=== PATIENT | female | born 1990 | race Caucasian/White ===

== ENCOUNTER 2023-05-22 11:48 | Outpatient (OUT) | payer MEDICAID, SELFPAY ==
[2023-05-22 12:17] LABS: Basophils Percent Auto 0.5 % (0.2-2.0); Eosinophils Absolute Auto 0.1 10^3/uL (0.0-0.7); Eosinophils Percent Auto 1.8 % (0.9-7.0); Hematocrit 39.6 % (36.0-48.0); Hemoglobin 13.6 g/dL (12.0-16.0); Immature Granulocytes Abs Auto 0.03 10^3/uL (0.00-0.03); Immature Granulocytes Pct Auto 0.4 % (0.0-0.5); Lymphocytes Absolute Auto 1.8 10^3/uL (1.2-3.8); Lymphocytes Percent Auto 23.4 % (20.5-60.0); Mean Corpuscular HGB Conc 34.3 g/dL (29.9-35.2); Mean Corpuscular Hemoglobin 27.8 pg (26.7-34.0); Mean Corpuscular Volume 80.8 fL (81.0-99.0); Mean Platelet Volume 10.7 fL (9.5-13.5); Monocytes Absolute Auto 0.5 10^3/uL (0.3-0.8); Neutrophils Absolute Auto 5.1 10^3/uL (1.4-6.5); Neutrophils Percent Auto 66.9 % (43.0-75.0); Platelet Count 301 10^3/uL (150-450); Red Cell Distribution Width 12.1 % (11.0-15.0); White Blood Count 7.6 10^3/uL (4.0-11.0)
[2023-05-22 12:28] LABS: Estimated Average Glucose 111 mg/dL; Glycohemoglobin A1C 5.5 % (4.5-6.2)
[2023-05-22 12:49] LABS: Alanine Aminotransferase 32 U/L (14-59); Albumin Globulin Ratio 1.2; Albumin Level 4.3 g/dL (3.4-5.0); Alkaline Phosphatase 75 U/L (46-116); Anion Gap 10.5; Aspartate Amino Transferase 18 U/L (15-37); BUN Creatinine Ratio 22.7; Bilirubin Total 0.4 mg/dL (0.2-1.0); Calcium 8.9 mg/dL (8.5-10.1); Carbon Dioxide 26.3 mmol/L (21.0-32.0); Chloride 100 mmol/L (98-107); Chol HDL Ratio 4.2; Cholesterol 168 mg/dL (<=200); Estimated GFR (African America >60 (>=60); Estimated GFR (Non-African Ame >60 (>=60); Free T3 2.65 pg/mL (2.18-3.98); Globulin 3.7 g/dL; Glucose 99 mg/dL (74-106); HDL Cholesterol 40 mg/dL (40-60); Potassium 3.8 mmol/L (3.5-5.1); Sodium 133 mmol/L (136-145); Triglycerides 150 mg/dL (<=150)
[2023-05-23 11:09] LABS: Insulin 26.4 uIU/mL (2.6-24.9)
== END 2023-05-22 11:49 | disposition home or self-care (01) ==
LOC: LAB 11:53
PROVIDERS: PCP Family Medicine; Visit Provider Family Medicine
DX: Z00.00 Encounter for general adult medical examination without abnormal findings (principal)
CPT/HCPCS: 36415; 80053; 80061; 83036; 83525; 83540; 84436; 84443; 84481; 85025

== ENCOUNTER 2023-08-16 16:34 | Outpatient (OUT) | payer OTHER, SELFPAY ==
[2023-08-16 17:13] LABS: INR 1.05; Partial Thromboplastin Time 29.7 sec (22.3-36.2); Prothrombin Time 11.1 sec (9.0-11.6)
[2023-08-16 17:41] LABS: Alanine Aminotransferase 17 U/L (14-59); Albumin Globulin Ratio 1.2; Albumin Level 4.3 g/dL (3.4-5.0); Alkaline Phosphatase 79 U/L (46-116); Anion Gap 12.4; Aspartate Amino Transferase 17 U/L (15-37); BUN Creatinine Ratio 29.9; Bilirubin Total 0.3 mg/dL (0.2-1.0); Calcium 8.6 mg/dL (8.5-10.1); Carbon Dioxide 25.5 mmol/L (21.0-32.0); Chloride 104 mmol/L (98-107); Estimated GFR (African America >60 (>=60); Estimated GFR (Non-African Ame >60 (>=60); Globulin 3.5 g/dL; Glucose 100 mg/dL (74-106); Potassium 3.9 mmol/L (3.5-5.1); Sodium 138 mmol/L (136-145); Total Protein 7.8 g/dL (6.4-8.2)
== END 2023-08-16 16:35 | disposition home or self-care (01) ==
PROVIDERS: PCP Family Medicine; Visit Provider Family Medicine
DX: R31.9 Hematuria, unspecified (principal)
CPT/HCPCS: 36415; 80053; 85610; 85730

== ENCOUNTER 2023-08-16 16:49 | Emergency (ER) | payer OTHER, SELFPAY ==
[2023-08-16 16:55] VITALS: BP 127/105; PULSE 98; RESP 18; TEMP 36.6; O2SAT 98; BMI 33.6
--- NOTE | 2023-08-16 16:58 | XR_ITS ---
The [address] [address] Patient Name: MEREDITH CHAHAL MRN: [id number] date: 1990 Sex: F Assigned Patient Location: ER Current Patient Location: ER Accession/Order Number: [id number] Exam Date: 08/16/2023 17:12 Report Date: 08/16/2023 18:02 At the request of: SHEREEN WRIGHT Procedure: XR foot LT min 3V EXAM: XR foot LT min 3V HISTORY: left foot pain COMPARISON: None. TECHNIQUE: 3 views of the left foot FINDINGS: There is no acute fracture or dislocation. There is mild soft tissue swelling of the dorsal foot. FINDINGS: No acute fracture. Electronically authenticated by: JASON LAZARO Date: 08/16/2023 18:02
--- NOTE | 2023-08-16 17:03 | ED.LOWEXI1 ---
Documented by User: SIL Ding 08/16/23 17:49 HPI - Extremity Injury (Lower) General Chief Complaint: Extremity Injury, Lower Stated Complaint: Lower Extremity Injury Time Seen by Provider: 08/16/23 16:52 Source: patient Mode of arrival: walk-in Limitations: no limitations History of Present Illness HPI Narrative: patient is a 33-year-old female presents to the emergency department for an injury to the left foot that occurred at home approximately one hour ago. She states her daughter's laptop fell and hit her on the dorsum of the left foot. She reports pain over the left 4th toe radiating into the midfoot. She is able to ambulate. No medications taken prior to arrival. She is not concerned for . She had no other associated injuries. Related Data Allergies Allergy/AdvReac Type Severity Reaction Status Date / Time Sulfa (Sulfonamide Allergy Unknown Verified 08/16/23 16:55 Antibiotics) Review of Systems ROS Constitutional Denies: fever or chills Ears, nose, mouth, and throat Denies: neck pain Respiratory Denies: shortness of breath Musculoskeletal Reports: extremity pain and joint pain; Denies: back pain or neck pain Integumentary/Breast Denies: rash Neurological Denies: headache Hematologic/Lymphatic Denies: easy bruising Exam Narrative Exam Narrative: Gen.: Awake, alert, in no distress Head: Normocephalic, atraumatic ENT: Moist mucous membranes Respiratory: No respiratory distress Extremities: Moves extremities equally, normal flexion and extension of the toes of the left foot, mild tenderness and swelling noted over the left 4th metatarsal. No abrasions or ecchymosis noted. 2+ left DP pulse. Psych: Normal mood and affect Neuro: No focal neuro deficit Skin: Warm, dry, intact Constitutional Vital Signs, click to edit/add: Last Vital Signs Temp 97.8 F 08/16/23 16:55 Pulse 98 H 08/16/23 16:55 Resp 18 08/16/23 16:55 BP 127/105 H 08/16/23 16:55 Pulse Ox 98 08/16/23 16:55 O2 Del Method Room Air 08/16/23 16:55 Course Vital Signs Vital signs: Vital Signs Temperature 97.8 F 08/16/23 16:55 Pulse Rate 98 H 08/16/23 16:55 Respiratory Rate 18 08/16/23 16:55 Blood Pressure 127/105 H 08/16/23 16:55 Pulse Oximetry 98 08/16/23 16:55 Oxygen Delivery Method Room Air 08/16/23 16:55 Temperature 97.8 F 08/16/23 16:55 Pulse Rate 98 H 08/16/23 16:55 Respiratory Rate 18 08/16/23 16:55 Blood Pressure 127/105 H 08/16/23 16:55 Pulse Oximetry 98 08/16/23 16:55 Oxygen Delivery Method Room Air 08/16/23 16:55 MDM - Extremity Injury (Lower) MDM Narrative Medical decision making narrative: x-rays of the left foot with no evidence of fracture, dislocation or soft tissue abnormality. Patient declined pain medication in the emergency department. patient declined Rafael wrap or a postop shoe. She is discharged home to rest, ice, elevate. Follow-up with PCP and return to the Emergency Room if symptoms change or worsen. Medical Records Attestation: I reviewed the patient's medical records. Imaging Data x-ray foot: Attestation: I personally reviewed and interpreted this imaging study as follows: My impression: three-view left foot: No fracture, dislocation, soft tissue abnormality. Imaging reviewed by attending physician Discharge Plan Discharge Chief Complaint: Extremity Injury, Lower Clinical Impression: Contusion of left foot Patient Disposition: Home, Self-Care Time of Disposition Decision: 17:49 Condition: Good Instructions: Foot Contusion (ED) Stand Alone Forms: Portal Instructions Referrals: Jean Claude Joshi MD [Primary Care Provider] - 1 week Discharge Date/Time: 08/16/23 17:54 Documented by User: Ross Matthew MD 08/16/23 18:55 HPI - Extremity Injury (Lower) General Chief Complaint: Extremity Injury, Lower Stated Complaint: Lower Extremity Injury Time Seen by Provider: 08/16/23 16:52 Related Data Allergies Allergy/AdvReac Type Severity Reaction Status Date / Time Sulfa (Sulfonamide Allergy Unknown Verified 08/16/23 16:55 Antibiotics) Exam Constitutional Vital Signs, click to edit/add: Last Vital Signs Temp 97.8 F 08/16/23 16:55 Pulse 98 H 08/16/23 16:55 Resp 18 08/16/23 16:55 BP 127/105 H 08/16/23 16:55 Pulse Ox 98 08/16/23 16:55 O2 Del Method Room Air 08/16/23 16:55 Course Vital Signs Vital signs: Vital Signs Temperature 97.8 F 08/16/23 16:55 Pulse Rate 98 H 08/16/23 16:55 Respiratory Rate 18 08/16/23 16:55 Blood Pressure 127/105 H 08/16/23 16:55 Pulse Oximetry 98 08/16/23 16:55 Oxygen Delivery Method Room Air 08/16/23 16:55 Temperature 97.8 F 08/16/23 16:55 Pulse Rate 98 H 08/16/23 16:55 Respiratory Rate 18 08/16/23 16:55 Blood Pressure 127/105 H 08/16/23 16:55 Pulse Oximetry 98 08/16/23 16:55 Oxygen Delivery Method Room Air 08/16/23 16:55 MDM - Extremity Injury (Lower) MDM Narrative Medical decision making narrative: x-rays of the left foot with no evidence of fracture, dislocation or soft tissue abnormality. Patient declined pain medication in the emergency department. patient declined Rafael wrap or a postop shoe. She is discharged home to rest, ice, elevate. Follow-up with PCP and return to the Emergency Room if symptoms change or worsen. I, Dr Matthew, have reviewed the above progress note and course of action in the ER; agree with the above. I have personally seen and evaluated this patient, gone over history and physical, and discussed disposition and treatment plan with the patient. It was recommended and patient refused Rafael wrap and postop shoe,Patient stated she was just here to rule out a fracture, she will use ice over the weekend. 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 Discharge Plan Discharge Chief Complaint: Extremity Injury, Lower Clinical Impression: Contusion of left foot Patient Disposition: Home, Self-Care Time of Disposition Decision: 17:49 Condition: Good Instructions: Foot Contusion (ED) Stand Alone Forms: Portal Instructions Referrals: Jean Claude Joshi MD [Primary Care Provider] - 1 week Discharge Date/Time: 08/16/23 17:54
== END 2023-08-16 17:54 | disposition home or self-care (01) ==
PROVIDERS: Emergency Provider Emergency Medicine; PCP Family Medicine
DX: S90.32XA Contusion of left foot, initial encounter (principal); W20.8XXA Other cause of strike by thrown, projected or falling object, initial encounter; R31.9 Hematuria, unspecified
CPT/HCPCS: 36415; 73630; 80053; 85610; 85730; 99283

== ENCOUNTER 2023-08-22 08:06 | Outpatient (OUT) | payer OTHER, SELFPAY ==
--- NOTE | 2023-08-22 08:09 | US_ITS ---
The [address] [address] Patient Name: MEREDITH CHAHAL MRN: [id number] date: 1990 Sex: F Assigned Patient Location: US Current Patient Location: US Accession/Order Number: [id number] Exam Date: 08/22/2023 08:10 Report Date: 08/22/2023 09:31 At the request of: INDERJIT LIEBERMAN Procedure: US renal BI US renal BI, 08/22/2023 8:10 AM EDT INDICATION: Hematuria R31.9 COMPARISON: There is no appropriate prior study for comparison. FINDINGS: The kidneys measure 12.7 x 4.6 x 4.6 cm on the right and 12.4 x 4.6 x 4.6 cm on the left side. Possible right extrarenal pelvis. No hydronephrosis is noted. Normal vascularity of kidneys. The visualized portion of the urinary bladder is unremarkable. The urinary bladder wall measures 2.9 mm. Nonspecific ureteral jet is noted. The post void residual measures 15.7 mL. US/US renal BI IMPRESSION: No suspicious lesion or nephrolithiasis is noted. A CTU may be helpful for further evaluation. Electronically authenticated by: JOHN PEÑALOZA Date: 08/22/2023 09:31
== END 2023-08-22 08:07 | disposition home or self-care (01) ==
LOC: US 08:06
PROVIDERS: PCP Family Medicine; Visit Provider Family Medicine
DX: R31.9 Hematuria, unspecified (principal)
CPT/HCPCS: 76775

== ENCOUNTER 2024-06-09 12:37 | Outpatient (OUT) | payer BC, OTHER, SELFPAY ==
--- OUTSIDE RECORDS SUMMARY | 2024-06-09 12:44 | XMS_ITS | CCD ---
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 Name Role Phone DR INDERJIT JOSHI Primary Care Unavailable ADI, DR JANSEN Admitting Unavailable ADI, DR JANSEN Attending Unavailable ADI, DR JANSEN Consulting Unavailable ADI, DR JANSEN Admitting Unavailable ADI, DR JANSEN Attending Unavailable ADI, DR JANSEN Consulting Unavailable ADI, DR JANSEN Primary Care Unavailable Sammy Mike Unavailable NONE, XXXX Primary Care Physician Unavailab Inderjit Teixeira Primary Care Physician GISELA PORTER Attending Unavailable GISELA PORTER Attending Unavailable JODIE TSAI Attending Unavailable Inderjit Joshi Primary Care Unavailable Sammy Mike Attending Unavailable Sammy Mike Admitting Unavailable Sammy Mike Admitting Unavailable Inderjit Joshi Primary Care Unavailable Sammy Mike Attending Unavailable Elissa Mejia. Admitting Unavailable Elissa Mejia. Attending Unavailable Elissa Mejia. Referring Unavailable Christine Yo Admitting Unavailable Christine Yo Attending Unavailable Christine Yo Admitting Unavailable Christine Yo Attending Unavailable Nicholas Thurston Attending Unavailable Star LEONARDO Attending Unavailable Elissa Mejia. Attending Unavailable Allergies Allergy Classification Reported Allergen(s) Allergy Type Date of Onset Reaction(s) Facility (3 sources) Substance with sulfonamide structure and antibacterial mechanism of action (substance) Drug allergy Unknown [facility] Other (6 sources) Sulfonamides (Antibiotic); Translations: [sulfa drugs] Drug allergy Unknown by patient [facility] (1 source) Sulfonamides (Antibiotic) Drug allergy (disorder) [address] [place] [address] Repository Medications Current Medications Medication Drug Class(es) Dates Sig (Normalized) Sig (Original) benzoyl peroxide 100 mg/ml medicated liquid soap (5 sources) Start: 12-04-2023 Benzoyl Peroxide Active 1 APPLIC TOPICAL Daily December 04, 2023 1:00am Benzoyl Peroxide Wash 10 % External for 30 Days PRN Active cephalexin 500 mg oral capsule (1 source) Cephalosporin Antibacterial Start: 08-18-2023 End: 08-25-2023 take 1 capsule by mouth every twelve hours cephalexin 500 mg Cap 500 mg = 1 cap(s), Oral, q12hr, X 7 day(s), # 14 cap(s), Refills(s) 0 Start Date: 08/18/23 Stop Date: 08/25/23 Status: Ordered clindamycin 0.01 mg/mg topical gel (5 sources) Lincosamide Antibacterial Start: 12-04-2023 Clindamycin Phosphate Active 1 APPLIC TOPICAL Twice daily December 04, 2023 1:00am Clindamycin Phos phate 1 % apply A SMALL AMOUNT topically to affected area twice a day External for 30 Days PRN Active estrogens, conjugated (skilled nursing) 0.625 mg/ml vaginal cream (1 source) Estrogen Start: 04-13-2024 Premarin Vaginal 0.625 mg/g cream with applicator See Instructions, 30 gm, Refill(s) 1, Apply pea sized amount to urethra/vagina 3x a week at night x 1 month, then 2x a week for maintainence, [employer] #14, 154, cm, 04/13/24 9:25:00 EDT, Height/Length Dosing, 76, kg, 04/13/24 9:25:00 EDT, Weight Dosing Start Date: 04/13/24 Status: Ordered ibuprofen 600 mg oral tablet (2 sources) Nonsteroidal Anti-inflammatory Drug Start: 07-10-2017 take 600 mg by mouth every six hours Ibuprofen Active 600 MG PO Q6H July 10, 2017 12:00am Magnesium (3 sources) Magnesium 235mg two capsules qd Active magnesium oxide 400 mg oral tablet (2 sources) Start: 12-04-2023 take 400 mg by mouth once daily Magnesium Oxide Active 400 MG PO Daily December 04, 2023 1:00am Multivitamin preparation (5 sources) Start: 12-04-2023 take 1 tablet by mouth once daily Multivitamin Active 1 TAB PO Daily December 04, 2023 1:00am Start: 12-04-2023 take 1 tablet by jose th once daily Multivitamin Active 1 TAB PO Daily December 04, 2023 12:00am Multivitamin Act chyna Semaglutide (Weight Loss) (2 sources) Start: 01-15-2024 Semaglutide (W eight Loss) (Wegovy) 1 mg/0.5 mL pen injector Active 1 MG SUBCUT every week 2 January 15, 2024 4:09pm Start: 01-15-2024 End: 01-15-2024 Semaglutide (Weight Loss) (W egovy) 1 mg/0.5 mL pen injector Discontinued 1 MG SUBCUT every week January 15, 2024 12:00am January 15, 2024 4:10pm Semaglutide Base (1 source) Start: 01-15-2024 inject 1 mL by subcutaneous injection every week Semaglutide Base Active 0.33 ML SUBCUT every week 1.32 January 15, 2024 12:00am [facility] Pre-filled Syringes using Semaglutide Base. Dispense 1.32 mL = (Four 0.33 mL pre-filled syringes) Semaglutide Sodium 0.3 mg/ 0.25 mL 0.25 mL (3 sources) Start: 07-11-2023 Semaglutide So dium 0.3 mg/ 0.25 mL 0.25 mL 0.25 mL Injection Once for 7 days Jun, Active Semaglutide Sodi um 0.3 mg/ 0.25 mL 0.25 mL 0.25 mL Injection Once for 7 days Active sulfacetamide sodium 100 mg/ml topical lotion (5 sources) Sulfonamide Antibacterial Start: 12-04-2023 Sulfacetamide Sodium (Acne) Active 1 APPLIC TOPICAL Twice daily December 04, 2023 1:00am Sulfacetamide So dium (Acne) 10 % External for 30 Days PRN Active 24 hr tolterodine tartrate 2 mg extended release oral capsule (2 sources) Cholinergic Muscarinic Antagonist Start: 12-05-2023 Tolterodine Active M G PO December 05, 2023 1:00am Completed/Discontinued Medications Medication Drug Class(es) Dates Sig (Normalized) Sig (Original) 0.25 mg, 0.5 mg dose 1.5 ml semaglutide 1.34 mg/ml pen injector (4 sources) Start: 12-05-2023 End: 01-15-2024 inject 2.3 mg by subcutaneous injection every week Semaglutide Discontinued 2.3 MG SUBCUT every week December 05, 2023 10:18am January 15, 2024 4:08pm [facility] [employer] Start: 12-04-2023 End: 12-05-2023 inject 0.25 mg by subcutaneous injection every week Semaglutide Discontinued 0.25 MG SUBCUT every week December 04, 2023 1:00am December 05, 2023 10:19am for 4 weeks spironolactone 25 mg oral tablet (5 sources) Aldosterone Antagonist Start: 12-04-2023 End: 12-05-2023 take 1 tablet by mouth once daily Spironolactone (Aldactone) 25 mg tablet Discontinued 25 MG PO Daily December 04, 2023 1:00am December 05, 2023 10:19am Aldactone 25 MG 1 tablet Orally PRN Active TB Test (3 sources) Start: 02-18-2014 TB Test February 0.1 mL Problems Problem Classification Problem Date Documented Date Episodic/Chronic Acute bronchitis (4 sources) Acute bronchitis, unspecified; Translations: [ACUTE BRONCHITIS UNSPECIFIED] Onset: 10-03-2022 Episodic Administrative/social admission (14 sources) Dietary counseling and surveillance; Translations: [Other specified counseling] Onset: 08-29-2023 Episodic Diabetes mellitus without complication (7 sources) Other abnormal glucose; Translations: [Prediabetes] Onset: 12-05-2023 Episodic Disorders of lipid metabolism (7 sources) Dyslipidemia; Translations: [Hyperlipidemia, unspecified] Chronic Genitourinary symptoms and ill-defined conditions (4 sources) Stress incontinence (female) (male); Translations: [Female stress incontinence] Onset: 03-27-2024 Chronic Genitourinary symptoms and ill-defined conditions (5 sources) Unspecified symptoms and signs involving the genitourinary system; Translations: [Blood in urine] Onset: 08-18-2023 Episodic Other diseases of bladder and urethra (4 sources) Urethral intrinsic sphincter deficiency; Translations: [Intrinsic sphincter deficiency (ISD)] Onset: 03-27-2024 Episodic Other endocrine disorders (3 sources) Hyperinsulinism; Translations: [Other hypoglycemia] Chronic Other endocrine disorders (2 sources) Other hypoglycemia Chronic Other nutritional; endocrine; and metabolic disorders (3 sources) Obesity; Translations: [Obesity, unspecified] Chronic Other nutritional; endocrine; and metabolic disorders (5 sources) Obesity, unspecified; Translations: [Obesity, unspecified] Onset: 12-05-2023 Chronic Other nutritional; endocrine; and metabolic disorders (4 sources) Obese class I; Translations: [Obesity, unspecified] 12-04-2023 Chronic Other and delivery including normal (2 sources) Vaginal delivery; Translations: [Encounter for full-term uncomplicated delivery] 07-09-2017 Episodic Other skin disorders (2 sources) Cystic acne; Translations: [Acne vulgaris] 12-04-2023 Episodic Unclassified (1 source) CONTACT W/AND (SUSP) EXPOS COVID-19; Translations: [CONTACT W/AND (SUSP) EXPOS COVID-19] Onset: 10-06-2022 Results Test Name Value Interpretation Reference Range Facility Coding Summary.on 04-14-2024 Coding Summary. [id number]+PG hlYWQ+WN3YTODpZ52anA EvjQ6dH8BQQQaQEhgqNK LFWYiSPzHocdJkFS6kmJ NjZXJu IC8+SR4rKUIaIrmypZNw i8I8xRT0F41afc9kHUrs gVY6UMAnMoOmhzbxe5pk vYy1USjtJsttSmJh MMWnyT32PXO9cY77Hl04 kADesUZav1czyLn3LhXr MVRyNUF8cKtbAXxtb8Qu TGVwJ01rlURgl5I1 IGNvbGxhcHNlOyBlbXB0 tY0oZIasmcmqi3mkgrvw Bpd3bg07yYBhy1R4hWT3 Y0MeltD8ZPBdlTAr RqkgeJHHrL8wfcfoi4wq yhsjRoWzSAYyJQa8XGs7 FOZovMzpCzXxGS98MKS3 DYGszeOmU6YrDPTb iTzjSvY1h4N9Yr9BO7WV XisyQ8XPGGOCCJiubDH+ IS67wd81Z3IoThdzYrf5 TGXaDSP0hWY8bX8x VQXbXCpdk5K1vWF8X1Mp pcYjqp0dv7ctNSEeXVrv E26joVGqu1L5NGTadIS8 HIStsCszQlMzcX19 Oyc+UBDhjHmlv8RiBeuz g6zfq6nbeEk9LstgHJEt tkZmrDsoHIK9n5NdEi9i TBAprEB0gRO3wQ6l PxIsQdR3HRpsL117CoPb rWGwZpbdH65yN4BglJH+ UVUoKuo2ASTxiLfrNO4z R7FqDTGrxreyuFIe kQsmQD6rEVLkvaziPSQe iP7wNZAnM7f9GlGlLfK8 UHrrN0CoGBBqachcNg56 cB1rCoWgTdJ2TYok K6PhdgF5ZXCfxBJuOTzh UDK6C12lj2L8AYUqBCJk EOK4cAU9aA6aeDxambsv bGVmdDsgdmVydGlj EZqoDFifW588VEUvkVzl PkNvZGluZyBEYXRlOiAg MDYvMjUvMjAyNDwvdGQ+ AAKbOZV5vMneYTEo mETbREdiWz6ccYciaKgr VY4nXJXfwlenSHAnjK7k WCTryCEzjSalGG1lEOTk myfkk681OiWcXAY2 NAEhiNHyR3YueV9hWxEd YRIxHJPaF3OrlPAdRKjd M496DCwlAiG6VWVltmMr V7MhAXXhsTgiJlP3 s2U6At5Kg7YqtqjmI7Nh nWWmPoEgQolqPXe7T1He PjwvdHI+UX16KJGxWI03 CCl7TTK9iEtoDCmu XCEgD9DnsO3rJiWyDWFc ZGRkOyc+PHRhYmxlIHdp ZHRoPScxMDAlJyBzdHls LZ6kUh6cQHIeDODn nSxywKBtHyVzd8ovDVHy OIehYL3yzPohH8EjkIU2 GVUwq3k4Fy33W09eT7Ab dXA+UDChkEL1iHM9 zD1eNnPjFmT3TJctT147 BzWokZGtMvbqy3jka0lm wOx0HnU2UAGwjsHzmUcp JTF4i0PvXy76E21c IHdpZHRoPSIxNSUiIHZh kQjuky4rkM0vLn2+PGNv pIB0rVK8xG1pWnZbQsM3 RYbfL961FxAhwEUa Rgbff1hke3hnsLq5JeGh FFBuwpOluXhjXIF5s3Ll Zj87G2PrbRudl4UsUpz1 yh92kNAex8J4qLZ1 W9ToESLxyktbzERxoSwb KL4rXCCdqxrwJDTykZ0a QEJyI1s0PnVkDzX8UKjo O5GissJ5RIQcdUVs PUTdmFDPsB6cjxnbv2dh kvbtFoQnIUKfOIu4JTz3 HFAmbDrbBqPtWDA3XzQ2 MTC8mYSpeV9qpBau vsleiW4xWpx+ZAC5vZXd xVHKTD2cTfbloMU+PHRk SFI2uLiiMGwwLUPxdR8g FAUiV1g2QvQgWjM1 VYjxB5TwdnO0TSEnfIQw OFDfkNCIgO0ywyxgh4hs vwqzKjHsGGBcGJs0KRf5 LWFsaWduOiBsZWZ0 IsM3EQZ8xKQnqP0opVol asvloH3bRrh+QmlydGgg YPB4OLx6B7CrGzv4ZTEm pJqtUM1qdAHrLAjv Uu4pbBgfbStdQR4sEMCr rykix697QdCxd7xcBPHo qRGyNWxiNST1J99wo7G0 CLPhEXItIGE8lOD3 jP8dqGaadngsoPTxzRgn ysVniPdaWOhiZIsiU297 VMXrkWvaWuIvSEs0Q7Zj Kvf3VRRfzEkqBN4q mRCvMCyrXh0kyYkqaTsj AU6wHRKqqetrs379PwRm s8tsGFNtoUGqZWifKBE2 O68jk4J5SKGzYXKg FIB2wEI4bI2nnGypqkpo bGVmdDsgdmVydGljYWwt KEdbA153ZRXrtQjmYpMg nHo8J0GmAlm2ZFMv oEhcWV0rrWJeECegUw7c kExllAkxHU6hEFNvktwv h277DzAkh1szTLGhsNOq IBurCEB5D49ji1J6 AJWuWPWnANW8uWX4oN7e bGlnbjogbGVmdDsgdmVy pEedLOozXAtdB154JNAq cDsnPlBhdGllbnQg BLuaRCh2Y6OsXapswAX+ EE37WNGnTH07wTKhkMRg j7onlMo0SjGgAQBnRXE2 pGszXLpjl9DgZNRp B36qqBFud1L1SDNlkTpr rYKvDaYcwYO2nE1vLRab pwsaq5nhwkqbSszlu8wj la00hA88W43wUVfv ZHRoPSIzMCUiIHZhbGln nt9ckY5pXw4+PGNvbCB3 lZS0dC5jBOOhPxJ2FSvd I858MaLocGPgQvbm g3tey1ljjUu8YkF3WFQr lyTbpSeaEHD6t0KsKq03 O13yYLumIKVbUWAuDHZl JDXoiYridr6wwE7f Ii8+SPLggCH0qYH4fI4p ZjVeDzV5OWayU596AqNq lEZqGhhjZ60aT5RzuGF+ FJRiKjc0RBQrtNrf RJ3ccTZyCNzgNa6hLVX5 UgUrIwIwGEfrF9BfAQRr obbhbhkgzDV1DZFgMNMb eA81Hi0djLiyISEb iBBHrL0kzqefl4nyysnf BhLhXPFxKGb5RZs2MQHd zLnrSdFeBKY3XuE3WRG0 eHJgtK3kcTpdbmkp eA1nW5OdYXMcpzlbOu69 xP9tBtRfHfV2VRrvHmx+ X7RPQ0uYXONISETXNfVU QTwvdGQ+PHRkIHN0 lRosGPhaWCMxiQ7qIYRe R7s2RnAsEkA6HYrmS1Rh VZYnoikaEd66tL6bVeEh FxW0QZeuV6DjklG0 VRItkVLyCVapPUQ7Q60g m2A3UJLmQYUqLGB0eGX0 kO4elMyspjookFEzlEnl dmVydGljYWwtYWxp H643FLOykSxuOfU8SlAj OtM5RRt1G4EeBye7DTVh pKegHY8caYUcTHnkTo8v dUwogTryEB6fAYHa imvvPEFdnS0zDESkkSNe uCfbPS7yFZTbvjnaz365 PwRjOOW2ORMneOZtQ4Aq tM2mQlJaNDSkMMWv W4AypAKqSSzzK940FOmn PlK7CRZnwnZeM8ZhMVTv fBykOrW2r1G0Mi0zKRWE ZWFyczwvdGQ+PHRk RZQ7qGveVPxoSCBznW9q VSXxZ0r7AqKjJhI2BKoo E0AzKGAdhjihFa62eX7i UpTpItV0BVloS2Hb ryN8LPEufGAwXXnjJVG1 U62ld3O4GEEwAGMrLNX5 oJA2fI2hcUspyawvrEWc dDsgdmVydGljYWwt XKfsG871YLXztKudEnYw bWFsZTwvdGQ+PHRkIHN0 dKiaQYlgLTRwkL4yHYUy B8v5ByRvNzD7UBoi N2YgCRSuvjcaKo83nS9q UhZfNdY1ETreV9YywgA4 OQUseHKoARnrXCM7J21u x2Z2BLWgNAVuPQV7 fQS5mM0yaJsquwihqRQt dDsgdmVydGljYWwtYWxp L211CREsiAylYg57bINl xJuooqX9D1ZfGhib dHI+PF95XOUvOA74zIGv pLPtm7qccHo0KvVrNTDl UGZ5mGnmDPcgb3HeJIEj J34lnLRcb4X4HZXt tOhmmGWdQnJdeLN9eP5q RAxhwjgdb4nobvpeCagg x6wais75xJ88N20sTKdf ZHRoPSIzMCUiIHZh zLbxyn2nrS9eGf5+PGNv eVQ9zCD4qW8vEnUjTaV5 JUzzL887KlChaMToNyan c0uow0mzdRd2TdCg VXWeebOxoHhfVCC7l0Su Xw47E53iRJvgWYMtIDXb LLQzYAOogCdkuy5yjL6s Ii8+XM8ja0pjqu88 hD09qYB+MPAzHIC2tBsh MYuzVXFckW5vVLrtFlK0 AGAvGgKtgR28iOWnDVgb Ue0gfXeeuZruUF6e YRMxqregm854AjFwo1zy JVMmkWFfEOfwEDN8Q71d k2T4EZMfGNPxTNO9rOP4 wD2vsZgnsppaaTHb dDsgdmVydGljYWwtYWxp G272WYOcjPlgFuUzgIMi S4ftfbTZZX5eCnhweXZ+ CDZbLMF7wKcfOPdw JBZacC3lHZJiL8a1TzZj GsX6WYmnD9ExayB8JIMc tQBrMTShrSXSlV6ztxrn s5lawcvcSaReUSJt IEf6HIj9HTKfmKbtFmCh YGD6KxE1LDP0vGVruP9x jYrsbxhaiS7kQii+RklO OjwvdGQ+PHRkIHN0 yDhxWVyxNFApzD8tLJGi T3j3VePgTrT0EBrzC3Gx joD6EQQrjPDaMEOdpAJW xG8migeon9kkjggf NrHoUUFoYDq9QGd9MAPe jVcbDsLkJDI1BjN9RHI6 lGIibU5deQswktmegM8n Oyc+TVJOOjwvdGQ+ DGUsBPL4hEvhALdiGDJy xR5jIQGaY0c1JqQxTjW6 HSprR3IfexQ4ISCsdHXa CSVdmTAGmS0fkbgk c0bzjpvlJoXkJGJwFMo6 KMz7WCVekVzsZiIwEUX0 SkM8YKA4kCMocT6wnXpb zztghG1yPrg+UGF5 LBN7EQ19KI23J5JjBmhk dGFibGU+PHRhYmxlIHdp ZHRoPScxMDAlJyBzdHls KW3eSy8jPJIfGLMz bGxhcHNlOiBjb (more content not included)... [facility] Consent for Procedure/Surger yon 04-13-2024 Consent for Procedure/Surgery [id number]#[id number] Normal [facility] Consent for Treatmenton 03-22 Consent for Treatment [id number] #1.00TIFF Normal [facility] Inpatient Patient Summaryon 04-13-2024 Inpatient Patient Summary [address] [address] Clinical Summary Person Information Name: MEREDITH CHAHAL Age: 33 Years : 1990 Sex: Female PCP: Inderjit Joshi MD Marital Status: Race: White Ethnicity: Non- or Language: Tuvaluan Visit Id: Visit Reason: GROSS HEMATURIA Speciality: Acuity: Enc Type: Outpatient Med Service: Surgery Arrival: 04/13/2024 08:42:19 Discharge: Dispo Type: Address: [address] [place] [address] [address] [id number] Provider Notes: Diagnosis: Gross hematuria; Intrinsic sphincter deficiency (ISD); Stress incontinence, female Problems Active Intrinsic sphincter deficiency (ISD) Stress incontinence, female Gross hematuria Smoking Status: Functional Status: Sensory Deficits: History of Falls: Mobility Assistance Prior to Admission: ADLs: Current Level of Assistance for Self-Care/Mobility: Cognitive Status: Allergies sulfa drugs (Unknown by patient) Laboratory or Other Results This Visit (last charted value for your 04/13/2024 visit) No Laboratory or Other Results This Visit Measurements: Height: 154 cm Weight: 76 kg Blood Pressure: Not Valued / Not Valued BMI: 32.05 kg/m2 Procedures No Procedures Documented Immunizations No Immunizations Documented This Visit Final Med List: conjugated estrogens topical (Premarin Vaginal 0.625 mg/g cream with applicator) Apply pea sized amount to urethra/vagina 3x a week at night, then 2x a week for maintainence. Refills: 1. Care Team Members: Attending Physician: Elissa Mejia MD Consulting Physician: Referring Physician: Elissa Mejia MD Follow up: With: Address: When: Elissa Mejia Comments: Office to schedule [employer] Patient Education Information: EU - Cystoscopy Discharge Instructions (CUSTOM) [facility] IntraOperative Documentson 0 04-13-2024 IntraOperative Documents [id number] 4#1.00TIFF [facility] Main OR Intraoperative Recor don 04-13-2024 Main OR Intraoperative Record IntraOp Document Type FTURO Summary Primary Physician: Elissa Mejia MD Finalized Date/Time: 04/13/24 09:54:15 Pt. Name: MEREDITH CHAHAL/Sex: 1990 Female Med Rec #: [id number] Physician: Elissa Mejia MD Financial #: [id number] Pt. Type: O Room/Bed: / Admit/Disch: 04/13/24 08:42:19 - Institution: Case Times FTURO Entry 1 Patient Times In Room 04/13/24 09:41:00 Out Room 04/13/24 09:54:00 Procedure Times Start 04/13/24 09:43:00 Stop 04/13/24 09:49:00 Anesthesia Times Last Modified By: Liliana Monsivais 04/13/24 09:54:03 Case Attendance FTURO Entry 1 Entry 2 Entry 3 Case Attendee Roberto JOSHI, Liliana Boss COUNSELING AIDEDior Role Performed Surgeon - Primary Breakdown Person - Primary Scrub - Primary Time In 04/13/24 09:41:00 04/13/24 09:41:00 04/13/24 09:41:00 Time Out 04/13/24 09:54:00 04/13/24 09:54:00 04/13/24 09:54:00 Procedure CYSTOSCOPY LOCAL(.) CYSTOSCOPY LOCAL(.) CYSTOSCOPY LOCAL(.) Comments Last Modified By: Liliana Monsivais Kelsie E Burgderfer, Kelsie E 04/13/24 09:54:04 04/13/24 09:54:04 04/13/24 09:54:04 Surgical Procedures FTURO Entry 1 Procedure Description Procedure CYSTOSCOPY LOCAL Modifiers . Surgeon Description CYSTO WITH PELVIC EXAM Primary Procedure Yes Primary Surgeon Elissa Mejia MD Start 04/13/24 09:43:00 Stop 04/13/24 09:49:00 Anesthesia Type Local Surgical Service Urology Wound Class 2 - Clean-Contaminated Last Modified By: Liliana Monsivais 04/13/24 09:54:05 General Case Data FTURO Pre-Care Text: Classifies surgical wound, implements aseptic technique, initiates traffic control Entry 1 Case Information OR URO 1 FT Case Level None Wound Class 2 - Clean-Contaminated Specialty Urology Preop Diagnosis GROSS HEMATURIA Postop Same As Preop Yes Postop Diagnosis GROSS HEMATURIA Outcomes Met? Yes Last Modified By: Liliana Monsivais 04/13/24 09:37:55 Post-Care Text: The patient is free from signs and symptoms of infection EU IntraOp - FTURO Pre-Care Text: Implements protective measures prior to operative or invasive procedure, confirms identity before the operative or invasive procedure, verifies operative procedure, surgical site, and laterality Entry 1 EU Perioperative Protocols Procedure(s) CYSTOSCOPY LOCAL(.) Patient Identity Birthday, ID Band Verified (select at Check, Patient least 2): Participation Consents / H and P HandP, Surgery/Procedure Operative Site N/A Verified Consent Marking Verified Surgical Site Yes Laterality Verified n/a Verified Procedure Verified Yes Correct Patient Yes Position Verified Availability Equipment, Medication Time Out Elissa Mejia MD, Verified (If Participants Liliana Monsivais, Applicable) Dior Holloway CST Time Out Complete 04/13/24 09:42:00 Allergies Reviewed? Yes Allergies Reviewed Self/Patient With Body Position Frog Legged Prep Area VAGINA Prep Agents Betadine Solution Skin. Condition Unable to Visualize Description N/A Additional None Specimens Comment N/A Specimens Collected Vitals - EU Blood Pressure 114/75 Pulse 91 bpm Respirations 18 br/min SPO2 99 % EBL 0 IandO - EU Total Intake 0 mL Total Output 0 mL Outcomes Met? Yes Last Modified By: Lliiana Monsivais 04/13/24 09:43:19 Post-Care Text: The patient is free from signs and symptoms of injury caused by extraneous objects Sign Out FTURO Entry 1 Before Patient Leaves OR Nurse verbally Yes Nurse verbally n/a confirms with the confirms with the team the name of team that the procedure(s) instrument, sponge, recorded and needle counts are correct (or N/A) Nurse verbally n/a Nurse verbally Yes confirms with the confirms with the team how the team whether there specimen is labeled are any equipment (including patient problems to be name), if applicable addressed Sign Out Complete 04/13/24 09:49:00 Last Modified By: Liliana Monsivais 04/13/24 09:49:30 Case Comments Finalized By: Liliana Monsivais Document Signatures Signed By: Liliana Monsivais 04/13/24 09:54 Liliana Monsivais 04/13/24 09:54 Liliana Monsivais 04/13/24 09:54 Normal [facility] Main OR Preoperative Recordo n 04-13-2024 Main OR Preoperative Record Holding Area Document Type FTURO Summary Primary Physician: Elissa Mejia MD Finalized Date/Time: 04/13/24 09:42:06 Pt. Name: MEREDITH CHAHAL.O.B./Sex: 1990 Female Med Rec #: [id number] Physician: Elissa Mejia MD Financial #: [id number] Pt. Type: O Room/Bed: / Admit/Disch: 04/13/24 08:42:19 - Institution: Case Times Holding FTURO Pre-Care Text: Verifies consent for planned procedure, identifies individual values and wishes concerning care, includes family members in perioperative teaching Secures patient's records' belongings, and valuables, maintains patient's dignity and privacy, and maintains patient confidentiality Entry 1 In Holding 04/13/24 09:19:00 Outcomes Met? Yes Last Modified By: Abigail Santillan LPN 04/13/24 09:19:41 Post-Care Text: The patient participates in decisions affecting his or her perioperative plan of care The patient's right to privacy is maintained Surgery Checklist FTURO Entry 1 Patient Birthday, Patient Procedure History and Physical, Identification: Participation Verification: Surgical Consent, With Patient NPO after Midnight: n/a Personal Items: Glasses Limitations: up ad sin Complaints of Pain: No Skin Integrity Intact, [place], Warm, & Dry Vitals - EU Blood Pressure 114/75 Pulse 91 bpm Respirations 18 br/min SPO2 RN Reviewed Yes Last Modified By: Liliana Monsivais 04/13/24 09:42:04 Finalized By: Liliana Monsivais Document Signatures Signed By: Abigail Santillan LPN 04/13/24 09:22 Liliana Monsivais 04/13/24 09:42 Normal [facility] Operative Reporton Operative Report Patient: MEREDITH CHAHAL Age: 33 years Sex: Female : 1990 Associated Diagnoses: None Author: Elissa Mejia MD Procedure Operative Information Details: Date/ Time: 04/13/2024 09:57:00. Pre-Op Dx: Gross Hematuria - R31.0. Post-Op Dx: Atrophic vaginitis ([id number] N95.2, Working, Medical), Gross hematuria ([id number] R31.0, Discharge, Medical). Anesthesia Type: Local. Procedure: Local Cystoscopy. Complications: None. Risks/Benefits/Infor med Consent: Surgical risks, benefits, details of the procedure have been explained to the patient, Full informed consent has been obtained. Intraoperative Information Prepped: Patient is brought back to the endoscopy suite, Patient is placed in supine position, Patient prepped in the usual fashion with Betadine solution, 2% Xylocaine Jelly is placed per Urethra, After waiting several minutes the Cystoscope is introduced. The Urethra is: Normal, Urethra meatus pale, slightly tight. The Bladder is: Normal, Trabeculated None (0), No bladder tumors, lesions, stones or foreign bodies.. The ureteral orifices: Show efflux of clear urine. Devices Implanted: None. Removal: Cystoscope is removed, The patient tolerated it well. Vaginal examination: Vaginal mucosa: There is moderate vaginal atrophy, sensitive The urethra is patent, orthotopic. There are no masses or lesions. There is mild urethral hypermobility and DOMINGA is seen with cough. She is able to correctly identify her pelvic muscles with coaching, weak recruitment Stage 1 anterior prolapse with valsalva, no apical or posterior prolapse. Non-tender pelvic floor muscles . Postoperative Information Discharge: Follow up arranged. No evidence of malignancy. See separate clinic note regarding atrophic vaginitis and urinary leakage. [facility] Comment on above: Result Comment: Elec tronically Signed By: Elissa Mejia MD\.br\Date and Time Signed: 04/13/24 09:59 EDT Outpatient Surgery Discharge Instructionon 04-13-2024 Outpatient Surgery Discharge Instruction [id number] Normal [facility] Outpatient Surgery Discharge Instruction [place] [id number] Patient Discharge Instructions PERSON INFORMATION Name: MEREDITH CHAHAL Date of : 1990 Current Date: 04/13/2024 09:56:47 PHYSICIANS Admitting Physician: Elissa Mejia MD Comment: Discharge Diagnosis: Gross hematuria; Intrinsic sphincter deficiency (ISD); Stress incontinence, female MEREDITH CHAHAL has been given the following list of follow-up instructions, prescriptions, and patient education materials: IF UNABLE TO CONTACT YOUR PHYSICIAN AND YOU FEEL IT IS AN EMERGENCY, GO TO THE NEAREST EMERGENCY ROOM OR CALL 911 Follow up: With: Address: When: Elissa Mejia Comments: Office to schedule [employer] Comment: PATIENT EDUCATION INFORMATION Instructions: Cystoscopy ? Voiding after the procedure: there may be some pain, burning, urgency, frequency and blood tinged urine following the procedure. These symptoms usually resolve within 2-5 days. Drink the amount of fluid it takes to keep the urine pink to yellow or clear in color. Drinking enough water and fluids will help to ease any discomfort after your procedure. ? If you are having problems that seem out of the ordinary, please call. ? If unable to contact your physician and you feel it is an emergency, go to the nearest emergency room or call 911 ? Diet ? you may resume your normal diet. ? Activity ? you may resume your normal activities ? Call if you have a fever over 100 degrees. I, MEREDITH CHAHAL, have received the attached patient education materials/instructio ns and have verbalized understanding: May we do a follow up call? Yes No I was present when discharge instructions were given Patient Signature Date Clinican/Nurse Signature Date You may receive a survey from [employer] asking you to rate your care experience. Your feedback is important and will help us understand what we do well and how we can improve the quality of care we provide to you, your loved ones and our community. It?s an honor to serve you. Thank you for choosing [facility] Progress Note-Physicianon Progress Note-Physician Patient: MEREDITH CHAHAL Age: 33 years Sex: Female : 1990 Associated Diagnoses: None Author: Roberto JOSHI, Elissa White Health Status Allergies: Allergic Reactions (Selected) Severity Not Documented Sulfa drugs- Unknown by patient., Allergies (1) Active Severity Reaction sulfa drugs Unknown by patient Current medications: (Selected) Prescriptions Prescribed Premarin Vaginal 0.625 mg/g cream with applicator: See Instructions, 30 gm, Refill(s) 1, Apply pea sized amount to urethra/vagina 3x a week at night, then 2x a week for maintainence, [facility], 154, cm, 04/13/24 9:25:00 EDT, Height/Length Dosing, 76, kg, 04/13/24 9:25:00 EDT, Weight Dosing Impression and Plan Assessment and Plan: Diagnosis: Atrophic vaginitis ([id number]-TI N95.2, Working, Medical), Intrinsic sphincter deficiency (ISD) ([id number]-RS N36.42, Discharge, Medical), Stress incontinence, female (JFH13-VO N39.3, Discharge, Medical). 33 year old female presented with mixed incontinence and gross hematuria, UTI. Here for cystoscopy today, found to have vaginal/urethral sensitivity, likely secondary to atrophic vaginitis. Also pain with intercourse. Discussed etiology post vaginal delivery and treatment of local now exposed tissues to help with discomfort. Risks/benefits discussed, pt would like to proceed with topical treatment. -Will start premarin cream to urethral/vagina 3x/week for 1 month, then 2x weekly for maintenance ISD/DOMINGA- pt with urinary leakage with valsalva on exam. Again discussed options for treatment. Pt unsure if she would get again in the future. We discussed risks/benefits of urethral bulking agent Bulkamid, a non-particulate homogenous hydrogel consisting of 97.5% water and 2.5% polyacrylamide. At 1 year, overall 77-83% success rate is reported; 92% subjectively improved and 66% objectively dry in Bulkamid group vs 100% subjectively cured and 95% dry with TVT. At 7 years, 67.1% of the Bulkamid patients reported feeling cured or improved, 11.1% no change, and 2.3% worsening of incontinence. 19.5% of patients received a subsequent other incontinence procedure. 0% serious complications were reported with Bulkamid vs 9% serious complications with TVT including difficulty emptying bladder, chronic pain, tape protrusion or erosion. Postoperative complications were transient. Prolonged bladder emptying time was reported in 15.3% of patients and urinary tract infection in 3.5%. Risks of requiring straight cath or temporary catheter were discussed. The effect of Bulkamid on subsequent and delivery, and the impact of subsequent on the effect of Bulkamid, is unknown. - She elected to proceed with Bulkamid under MAC anesthesia. Risks as above. 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 [facility] Comment on above: Result Comment: Elec tronically Signed By: Roberto JOSHI, Elissa Rosales.br\Date and Time Signed: 04/13/24 10:05 EDT Insurance Correspondenceon 0 04-01-2024 Insurance Correspondence [id number] 9#1.00TIFF [facility] Formson 03-30-2024 Forms [id number]# 1.00TIFF [facility] Physician Referralon 024 Physician Referral [id number] 8#1.00TIFF [facility] Screenson 03-30-2024 Screens [id number] 7#1.00TIFF [facility] Ambulatory Visit Summaryon 0 03-27-2024 Ambulatory Visit Summary MEREDITH CHAHAL :1990 Visit Date:03/27/2024 Ambulatory Visit Instructions Your Diagnosis Intrinsic sphincter deficiency (ISD) Stress incontinence, female Gross hematuria Your Care Team Attending Physician - Elissa Mejia MD Primary Care Physician - Inderjit Joshi MD Discharge Vitals Temperature (Temporal Artery) 36.4 ?C Heart Rate (Peripheral) 88 Blood Pressure 116/78 Height 154.94 cm Height 61 in Weight 76.5 kg Weight 168.3 lb BMI 31.87 What to do next You Need to Schedule the Following Appointments Follow Up with Elissa Mejia MD, URL, URO When: Where: Allergies sulfa drugs (Unknown by patient) Problems Ongoing - Any problem that you are currently receiving treatment for. Gross hematuria Intrinsic sphincter deficiency (ISD) Stress incontinence, female Patient Survey You may receive a survey via text or e-mail asking about your office visit. Please share your experience with us by completing your survey. We appreciate your feedback and thank you for choosing us for your care. Education Materials Injection Treatments for Urinary Incontinence Urinary incontinence is a condition in which a person cannot control when he or she passes urine. The cause of this condition is usually a weak urinary sphincter. The urinary sphincter is the muscle that normally keeps urine from leaking. To treat this condition, a material called a bulking agent can be injected either into the urethra or into the bladder neck. The urethra is the part of the body that drains urine from the bladder. The bladder neck is the area where the bladder and urethra connect. The bulking agent is also called an implant. The implant narrows and strengthens the urethra to help control the passing of urine. Urinary incontinence is a common problem for women who have had pregnancies or certain surgeries, such as a hysterectomy, and for men who have had prostate surgery. Tell a health care provider about: ? Any allergies you have. ? All medicines you are taking, including vitamins, herbs, eye drops, creams, and xzac-xvd-gayugtm medicines. ? Any problems you or family members have had with anesthetic medicines. ? Any blood disorders you have. ? Any surgeries you have had. ? Any medical conditions you have. ? Whether you are or may be . What are the risks? Generally, this is a safe procedure. However, problems may occur, including: ? Infection. ? Bleeding. ? Allergic reaction to medicines or to the bulking agent. ? Damage to the urethra or bladder. ? Difficulty passing urine. ? A strong and uncomfortable urge to pass urine (urgency). ? Pain when passing urine or having sex. ? Failure of the procedure to treat incontinence. ? A need to repeat the procedure at a later time. What happens before the procedure? Staying hydrated Follow instructions from your health care provider about hydration, which may include: ? Up to 2 hours before the procedure ? you may continue to drink clear liquids, such as water, clear fruit juice, black coffee, and plain tea. Eating and drinking restrictions Follow instructions from your health care provider about eating and drinking, which may include: ? 8 hours before the procedure ? stop eating heavy meals or foods, such as meat, fried foods, or fatty foods. ? 6 hours before the procedure ? stop eating light meals or foods, such as toast or cereal. ? 6 hours before the procedure ? stop drinking milk or drinks that contain milk. ? 2 hours before the procedure ? stop drinking clear liquids. Medicines Ask your health care provider about: ? Changing or stopping your regular medicines. This is especially important if you are taking diabetes medicines or blood thinners. ? Taking medicines such as aspirin and ibuprofen. These medicines can thin your blood. Do not take these medicines unless your health care provider tells you to take them. ? Taking bwzv-iqz-oykcpqf medicines, vitamins, herbs, and supplements. General instructions ? Ask your health care provider what steps will be taken to help prevent infection. These steps may include: ? Removing hair at the surgery site. ? Washing skin with a germ-killing soap. ? Taking antibiotic medicine. ? You may need to have a series of tests done to learn more about your bladder control (urodynamic testing). ? Plan to have a responsible adult take you home from the hospital or clinic. ? Plan to have a responsible adult care for you for the time you are told after you leave the hospital or clinic. This is important. What happens during the procedure? ? An IV may be inserted into one of your veins. ? You may be given one or more of the following: ? A medicine to help you relax (sedative). ? A medicine to numb your urethra and bladder area (local anest (more content not included)... [facility] Patient Educationon 03-27-20 Patient Education Obstetrics and Gynecology Kegel Exercises Kegel exercises can help strengthen your pelvic floor muscles. The pelvic floor is a group of muscles that support your rectum, small intestine, and bladder. In females, pelvic floor muscles also help support the uterus. These muscles help you control the flow of urine and stool (feces). Kegel exercises are painless and simple. They do not require any equipment. Your provider may suggest Kegel exercises to: ? Improve bladder and bowel control. ? Improve sexual response. ? Improve weak pelvic floor muscles after surgery to remove the uterus (hysterectomy) or after , in females. ? Improve weak pelvic floor muscles after prostate gland removal or surgery, in males. Kegel exercises involve squeezing your pelvic floor muscles. These are the same muscles you squeeze when you try to stop the flow of urine or keep from passing gas. The exercises can be done while sitting, standing, or lying down, but it is best to vary your position. Ask your health care provider which exercises are safe for you. Do exercises exactly as told by your health care provider and adjust them as directed. Do not begin these exercises until told by your health care provider. Exercises How to do Kegel exercises: 1. Squeeze your pelvic floor muscles tight. You should feel a tight lift in your rectal area. If you are a female, you should also feel a tightness in your vaginal area. Keep your stomach, buttocks, and legs relaxed. 2. Hold the muscles tight for up to 10 seconds. 3. Breathe normally. 4. Relax your muscles for up to 10 seconds. 5. Repeat as told by your health care provider. Repeat this exercise daily as told by your health care provider. Continue to do this exercise for at least 4?6 weeks, or for as long as told by your health care provider. You may be referred to a physical therapist who can help you learn more about how to do Kegel exercises. Depending on your condition, your health care provider may recommend: ? Varying how long you squeeze your muscles. ? Doing several sets of exercises every day. ? Doing exercises for several weeks. ? Making Kegel exercises a part of your regular exercise routine. This information is not intended to replace advice given to you by your health care provider. Make sure you discuss any questions you have with your health care provider. Document Revised: 02/15/2022 Document Reviewed: 02/15/2022 [employer] Patient Education ? 2022 [employer] Urology Injection Treatments for Urinary Incontinence Urinary incontinence is a condition in which a person cannot control when he or she passes urine. The cause of this condition is usually a weak urinary sphincter. The urinary sphincter is the muscle that normally keeps urine from leaking. To treat this condition, a material called a bulking agent can be injected either into the urethra or into the bladder neck. The urethra is the part of the body that drains urine from the bladder. The bladder neck is the area where the bladder and urethra connect. The bulking agent is also called an implant. The implant narrows and strengthens the urethra to help control the passing of urine. Urinary incontinence is a common problem for women who have had pregnancies or certain surgeries, such as a hysterectomy, and for men who have had prostate surgery. Tell a health care provider about: ? Any allergies you have. ? All medicines you are taking, including vitamins, herbs, eye drops, creams, and ryrw-yzq-tksucjn medicines. ? Any problems you or family members have had with anesthetic medicines. ? Any blood disorders you have. ? Any surgeries you have had. ? Any medical conditions you have. ? Whether you are or may be . What are the risks? Generally, this is a safe procedure. However, problems may occur, including: ? Infection. ? Bleeding. ? Allergic reaction to medicines or to the bulking agent. ? Damage to the urethra or bladder. ? Difficulty passing urine. ? A strong and uncomfortable urge to pass urine (urgency). ? Pain when passing urine or having sex. ? Failure of the procedure to treat incontinence. ? A need to repeat the procedure at a later time. What happens before the procedure? Staying hydrated Follow instructions from your health care provider about hydration, which may include: ? Up to 2 hours before the procedure ? you may continue to drink clear liquids, such as water, clear fruit juice, black coffee, and plain tea. Eating and drinking restrictions Follow instructions from your health care provider about eating and drinking, which may include: ? 8 hours before the procedure ? stop eating heavy meals or foods, such as meat, fried foods, or fatty foods. ? 6 hours before the procedure ? stop eating light meals or foods, such as toast or cereal. ? 6 hours before the procedure ? stop drinking milk or drinks th (more content not included)... 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 She did good with this CMP- done 03/27/24- BUN(18) CREAT(0.7) NEG Urine Culture done 08-18-23 Has been on Tolterodine and Oxybutynin in the past both gave her a headache She takes extra clothes to work incase she has to change her clothes B&BSQ 18 PVR 49 Dysuria: denies Incomplete bladder emptying: she is not sure Hematuria: denies Frequency: every hour at least Urgency: denies Nocturia: denies Stream: denies hesitation, normal stream Leaking: yes Post void dripping: denies Wearing pads/ Depends: wears pad changes changes at least 3x daily Urge incontinence: _yes Stress incontinence: _yes Incontinence without Sensory Awareness: denies Abdominal pain: denies Flank pain: denies Sexual complaints: denies History of Present Illness Tests reviewed: reviewed UA, external records: ED records, ucx, labs I have reviewed the previous health record information and history for this patient. I have reviewed and verified the staff HPI to be accurate for this encounter. There have been no associated fever, chills, flank pain, or blood in the urine. Review of Systems PHQ Score Initial Depression Screen Score: 0 SCORE ROS - Provider Constitutional: denies weight loss, denies hot flashes. Eyes: denies eye problems. Gastrointestinal: denies nausea, denies vomiting. Cardiovascular: denies chest pain or angina. Integumentary: no dryness Musculoskeletal: denies musculoskeletal symptoms. ENMT: denies otolaryngeal symptoms. Respiratory: no shortness of breath. Heme/Lymph: denies easy bleeding tendency, denies easy bruising tendency. Psychiatric: no confusion, no anxiety. Genitourinary: See HPI. Physical Exam Vitals & Measurements T: 36.4 ?C(Temporal Artery) HR: 88(Peripheral) BP: 116/78 HT: 61 in HT: 154.94 cm WT: 76.5 kg WT: 168.3 lb BMI: 31.87 General Appearance: alert , no acute distress, well nourished, well developed female. Head: normocephalic . Eyes: normal orbit and globe. ENMT: normal examination of external ears. Chest: symmetric chest rise, respirations non labored . Cardiovascular: regular rate and rhythm. Abdomen: soft , non distended, no tenderness Genitourinary: bladder nonpalpable, no flank tenderness. Skin: warm, dry, no bruising. Psychiatric: cooperative, affect appropriate for age, normal judgement, euthymic mood. Assessment/Plan Meredith is a 33 yo female new pt here due to mixed incontinence. 1. Intrinsic sphincter deficiency (ISD) (N36.42: Intrinsic sphincter deficiency (ISD)) PVR 49 cc. BBS 18. CC: underwear always wet from dribbles. Leaking ongoing for 7 yrs. Takes extra underwear to work. Has tried Tolterodine and Oxybutynin in the past however had SE of headaches. Pt would also prefer nonmedical tx methods. Hx of two vaginal deliveries. No surgeries. Pain with intercourse every time. Feels pressure/dropping sensation. Counseled pt on at home kegels. Educated pt on DOMINGA vs UUI and management for DOMINGA. Educational pamphlets provided. Pt has tried NuvaRing, shares her body rejects foreign objects. Uncertain if she wants to have more children. I went over the options for treatment with the patient. We discussed conservative treatment with pelvic floor exercises with or without a physical therapist. There is about a 50% chance for significant improvement and 15% change of achieving complete continence. We also discussed vaginal inserts such as anti- incontinence pessaries and the impressa tampon. Definitive treatment include urethral bulking agents and minimally invasive and traditional surgery. Bulking agents (Collagen, Coaptite, Macroplastique) can be done in the office setting in a few minutes under local anesthesia. There is a 25% chance of cure, 50% chance of improvement and 25% change of failure. They often need to be injected more than once to get a satisfactory response. They have a limited ?life span? and usually need to be re-injected every 1-2 years in the best case scenario. Minimally invasive surgery with a retropubic or transobturator mid urethral synthetic sling is an outpatient procedure that takes approximately 15-30 minutes and is done under general or regional anesthesia or sedation. There are approximately 90% success rates with about about 80% of patients becoming totally dry. There is a 2% risk of voiding dysfunction requiring loosening of the procedure and less than 1% risk of vaginal extrusion. We talked about the FDA warnings about mesh, and the fact that the it refers to larger mesh sheets that are used transvaginally for the repair of prolapse. Appears to be activity/stress related rather than urge incontinence. Based on the above discussion the patient has decided on Bulkamid if she is a candidate -At home kegels. Pelvic floor therapy education pr (more content not included)... [facility] Comment on above: Result Comment: Elec tronically Signed By: Roberto JOSHI, Elissa White\.br\Date and Time Signed: 03/27/24 09:46 EDT\.br\Electronically Co-Signed By: Ashlee Ramon\.br\Date and Time Co-Signed: 03/27/24 09:34 EDT PAP [id number] 09-05-2023 Cytology report Cyto stain Doc (Cvx/Vag) Note Invalid Interpretation Code [facility] Comment on above: Result Comment: TEST S RESULT FLAG UNITS REF RANGE LAB Clinician Provided Cytology Information Source.............Endocervix No. of containers..01 ThinPrep Vial DIAGNOSIS: 01 NEGATIVE FOR INTRAEPITHELIAL LESION OR MALIGNANCY. Specimen adequacy: 01 Satisfactory for evaluation. Endocervical and/or squamous metaplastic cells (endocervical component) are present. Performed by: Anastasia Vaughn, Road Maker (ASCP) . 01 Note: Note 01 The Pap smear is a screening test designed to aid in the detection of premalignant and malignant conditions of the uterine cervix. It is not a diagnostic procedure and should not be used as the sole means of detecting cervical cancer. Both false-positive and false-negative reports do occur. Test Methodology: Note 01 This liquid based ThinPrep(R) pap test was screened with the use of an image guided system. FLAG LEGEND: L-Low Normal,H-High Normal,LL-Alert Low,HH-Alert High <-Panic Low,>-Panic High,A-Abnormal,AA-Critical Abnormal Performed at: [address] [place] [address] Itzel Kovacs MD, Performed By: #### 1 [id number] #### [facility] [address] [place] [address] HPV 16+18+31+33+35+39+45+ 51+52+56+58+59+66+68 DNA Probe+sig amp Ql (Cvx) Negative Invalid Interpretation Code Negative [facility] Comment on above: Result Comment: This nucleic acid amplification test detects fourteen high-risk HPV types (16,18,31,33,35,39,45,51,52,56,58,59,66,68) without differentiation. Performed at: [facility] [place] [id number] MD Fermín Robbins Performed at: =G [address] [id number] MD Fermín Robbins Performed By: #### 1 [id number] #### [facility] [address] [place] [address] PAP [id number] 08-30-2023 Collection Technique BRUSH-SPATULA [facility] Comment on above: Performed By: #### 1 [id number] #### [facility] [address] [place] [address] Gynecological Body Site ENDOCERVIX [facility] Comment on above: Performed By: #### 1 [id number] #### [facility] [address] [place] [address] Physician Orderon 08-30-2023 Physician Order [id number] #1.00TIFF [facility] ED Note-Physicianon 08-24-20 ED Note-Physician Basic Information Time Seen: Ryan Dorsey PA-C 08/18/2023 10:12 Chief Complaint Pt states saturday she had a UTI and BV. States she stated taking ATB and now shes urinating blood. History of Present Illness 33-year-old female presents to ED with complaint of hematuria, dysuria, abdominal cramping. Patient reports that her symptoms began over a week ago. Patient saw her POWERHOUSE TENDER who diagnosed her with a UTI as well as with BV. Patient was started on metronidazole as well as nitrofurantoin. Patient reports that she has been having hematuria since last , shortly after she began the antibiotics. Patient denies any back pain. Patient has any fevers or chills. Patient denies any nausea or vomiting. Patient reports that her UTI was confirmed by urine dipstick by her POWERHOUSE TENDER, culture was not performed. Patient reports she has not been able to follow-up with her POWERHOUSE TENDER over the weekend. Patient ports being generally otherwise healthy. Review of Systems Full 10 system ROS performed. Pt denies symptoms except as noted above in the HPI. Physical Exam Vitals & Measurements T: 36.8 ?C(Oral) HR: 90(Peripheral) RR: 18 BP: 131/92 SpO2: 95% HT: 154.94 cm WT: 80 kg BMI: 33.32 VITALS: I have reviewed the triage vital signs. GENERAL: Well developed, well appearing adult in no acute distress. NEURO: Alert and oriented. Moves all extremities. Face is symmetric and expressive. EYES: PERRL. No scleral icterus or conjunctival injection. No discharge. HENT: Normocephalic, atraumatic. Hearing is grossly intact. Nares grossly patent and without discharge. Mucous membranes moist. NECK: No JVD. Patient moves neck without restriction. CARDIO: Rhythm regular. Normal rate. No murmur, rub, or gallop. Pulses equal bilaterally in the upper and lower extremity. No lower extremity edema. PULM: Lungs clear to auscultation in all nelson. No wheezes, rales, or rhonchi. No conversational dyspnea. No splinting, stridor, or accessory muscle use. GI/: Abdomen is soft and non-tender. Normoactive bowel sounds. EXTREMITIES: Symmetric muscle bulk. No joint swelling. No clubbing, cyanosis, or deformity. SKIN: Warm and dry. Normal turgor. No rash or lesions appreciated. PSYCH: Mood, affect, and interaction is appropriate to the setting. Medical Decision Making MEDICAL DECISION MAKING Number and Complexity of Problems Differential Diagnosis: [] MDM Data External documents reviewed: [] My EKG interpretation: [] My CT interpretation: [] My X-ray interpretation: [] My Ultrasound interpretation: [] Decision rules/scores evaluated: [] Discussed with: [] Treatment and Disposition ED Course: 33-year-old female presents ED with complaint of ongoing hematuria after being diagnosed with a UTI. Work-up in ED reviewed and noted. Patient not any evidence of compromised kidney function on labs, no evidence of water or systemic infectious process. UA with some bacteria, not significantly interning for UTI. No blood in UA. Due to fact the patient is complaining of ongoing urinary tract infectious symptoms after starting antibiotic, no availability of the culture, I did order a culture and start patient on Keflex. Patient instructed follow-up with her PCP as well as her POWERHOUSE TENDER. Return precautions to ED were discussed. Patient questions were answered. Patient discharged home. Shared decision making: [] Code status: [] Assessment/Plan UTI symptoms (R39.9: Unspecified symptoms and signs involving the genitourinary system) Orders: cephalexin, 500 mg = 1 cap(s), Oral, q12hr, X 7 day(s), # 14 cap(s), Refills(s) 0 Automated Diff Basic Metabolic Panel CBC w/ Auto Diff Chlamydia/Gonococcus , CLAUDIA eGFR Extra Blue Tube Extra SST Tube Hepatic Function Panel Lipase Level UA With Cult Reflex Urine Culture Disposition Plan Patient Discharge Condition Stable Discharge Disposition To home Discharge Prescription List Prescriptions cephalexin 500 mg Cap, 500 mg= 1 cap(s), Oral, q12hr Follow-up With When Contact Information Inderjit Joshi In 3 days 08/21/2023 EDT [address] [facility] [place] [address] [address]- Business (1) Additional Instructions: Call the office of your primary care doctor to arrange for follow-up within the above-stated timeframe. Follow-up with your primary care doctor about this ED visit. You should review your labs, imaging, and diagnoses from this ED visit with your primary care physician. If you were prescribed medications you should discuss possible side-effects and drug interactions with your pharmacist. Call 911 or go to the nearest Emergency Department if you develop any new or worsening symptoms. Patient Education Urinary Tract Infection, Adult Attestation Patient seen and evaluated by the physician high school assistant principal. Attending physician was present in the emergency department and supervised care. This visit was performed by both the physician and an APC. I performed all as (more content not included)... Normal [facility] Comment on above: Result Comment: Elec tronically Signed By: Ryan Dorsey PA-C\.br\Date and Time Signed: 08/18/23 11:45 EDT\.br\Electronically Co-Signed By: Nicholas Thurston MD\.br\Date and Time Co-Signed: 08/24/23 08:18 EDT Chlamydia/Gonococcus, NAAon 08-21-2023 C. trachomatis rRNA CLAUDIA+probe Ql (Unsp spec) Negative Invalid Interpretation Code Negative [facility] Comment on above: Performed By: #### 1 [id number] #### [facility] [address] [place] [address] N. gonorrhoeae rRNA CLAUDIA+probe Ql (Unsp spec) Negative Invalid Interpretation Code Negative [facility] Comment on above: Result Comment: Perf ormed at: =[facility] [address] Roman [id number] MD Bendre Itzel Performed By: #### 1 [id number] #### [facility] [address] [place] [address] C Urineon 08-20-2023 Bacteria identified Cx Nom (U) Microbiology PROCEDURE: Urine Culture [R1] SOURCE: U CleanCatch BODY SITE: COLLECTED DATE/TIME: 08/18/2023 10:48 EDT RECEIVED DATE/TIME: 08/18/2023 15:34 EDT START DATE/TIME: 08/18/2023 15:34 EDT FREE TEXT SOURCE: Willian PA-Maria Eugenia, Ryan Dorsey PA-C, Ryan Del Cid FINAL REPORTS Final Report [] Verified Date/Time: 08/20/2023 09:14 EDT 2,000 cfu/ml Mixed skin contaminants Performing Locations R1: This test was performed at: [facility], [address] [place] [address], [address]- , , Normal [facility] Comment on above: Performed By: #### 2 [id number] ####[facility] [address] [place] [address] Auto Diffon 08-18-2023 Basophils/100 WBC (Bld) 0.4 % Normal 0.0-2.0 [facility] Comment on above: Order Comment: Order Added by Discern Expert. Performed By: #### 1 [id number] #### [facility] [address] [place] [address] Basophils/Leukocytes Auto (Bld) [Pure # fraction] 0.0 E9/L Normal 0.0-0.2 [facility] Comment on above: Order Comment: Order Added by Discern Expert. Performed By: #### 1 [id number] #### [facility] [address] [place] [address] Eosinophils/100 WBC (Bld) 1.9 % Normal 0.0-8.0 [facility] Comment on above: Order Comment: Order Added by Discern Expert. Performed By: #### 1 [id number] #### [facility] [address] [place] [address] Eosinophils/Leukocyte s Auto (Bld) [Pure # fraction] 0.2 E9/L Normal 0.0-0.5 [facility] Comment on above: Order Comment: Order Added by Discern Expert. Performed By: #### 1 [id number] #### [facility] [address] [place] [address] Lymphocytes/100 WBC (Bld) 21.1 % Normal 14.0-50.0 [facility] Comment on above: Order Comment: Order Added by Discern Expert. Performed By: #### 1 [id number] #### [facility] [address] [place] [address] Lymphocytes/Leukocyte s Auto (Bld) [Pure # fraction] 1.8 E9/L Normal 1.0-4.0 [facility] Comment on above: Order Comment: Order Added by Discern Expert. Performed By: #### 1 [id number] #### [facility] [address] [place] [address] Monocytes/100 WBC (Bld) 5.7 % Normal 4.0-14.0 [facility] Comment on above: Order Comment: Order Added by Discern Expert. Performed By: #### 1 [id number] #### [facility] [address] [place] [address] Monocytes/Leukocytes Auto (Bld) [Pure # fraction] 0.5 E9/L Normal 0.2-1.0 [facility] Comment on above: Order Comment: Order Added by Discern Expert. Performed By: #### 1 [id number] #### [facility] [address] [place] [address] Neutrophils/100 WBC (Bld) 70.9 % Normal 36.0-75.0 [facility] Comment on above: Order Comment: Order Added by Discern Expert. Performed By: #### 1 [id number] #### [facility] [address] [place] [address] Neutrophils/Leukocyte s Auto (Bld) [Pure # fraction] 6.2 E9/L Normal 2.0-7.5 [facility] Comment on above: Order Comment: Order Added by Discern Expert. Performed By: #### 1 [id number] #### [facility] [address] [place] [address] BMPon 08-18-2023 Creatinine [Mass/Vol] 0.7 mg/dL Normal 0.5-1.3 [facility] Comment on above: Performed By: #### 1 [id number] #### [facility] [address] [place] [address] Urea nitrogen [Mass/Vol] 18 mg/dL Normal 5-21 [facility] Comment on above: Performed By: #### 1 [id number] #### [facility] [address] [place] [address] Urea nitrogen/Creatinine [Mass ratio] 26 No Units High 10-20 [facility] Comment on above: Performed By: #### 1 [id number] #### [facility] [address] [place] [address] Anion gap [Moles/Vol] 8 mmol/L Normal 6-16 [facility] Comment on above: Performed By: #### 1 [id number] #### [facility] [address] [place] [address] Calcium [Mass/Vol] 9.2 mg/dL Normal 8.9-11.1 [facility] Comment on above: Performed By: #### 1 [id number] #### [facility] [address] [place] [address] Chloride [Moles/Vol] 107 mmol/L Normal 101-111 [facility] Comment on above: Performed By: #### 1 [id number] #### [facility] [address] [place] [address] CO2 [Moles/Vol] 25 mmol/L Normal 21-31 [facility] Comment on above: Performed By: #### 1 [id number] #### [facility] [address] [place] [address] Glucose [Mass/Vol] 98 mg/dL Normal 55-199 [facility] Comment on above: Result Comment: If t his glucose result represents a fasting glucose, interpretation should refer to the following reference range: 55-99 mg/dL Performed By: #### 1 [id number] #### [facility] [address] [place] [address] Potassium [Moles/Vol] 4.0 mmol/L Normal 3.5-5.3 [facility] Comment on above: Performed By: #### 1 [id number] #### [facility] [address] [place] [address] Sodium [Moles/Vol] 136 mmol/L Normal 135-145 [facility] Comment on above: Performed By: #### 1 [id number] #### [facility] [address] [place] [address] CBC w/ Auto Diffon Erythrocyte distribution width (RBC) [Ratio] 13.0 % Normal 10.9-14.2 [facility] Comment on above: Performed By: #### 1 [id number] #### [facility] [address] [place] [address] Hematocrit (Bld) [Volume fraction] 41.8 % Normal 34.0-46.0 [facility] Comment on above: Performed By: #### 1 [id number] #### [facility] [address] [place] [address] Hemoglobin (Bld) [Mass/Vol] 14.2 g/dL Normal 12.0-16.0 [facility] Comment on above: Performed By: #### 1 [id number] #### [facility] [address] [place] [address] MCH (RBC) [Entitic mass] 27.5 pg Normal 27.0-34.0 [facility] Comment on above: Performed By: #### 1 [id number] #### [facility] [address] [place] [address] MCHC (RBC) [Mass/Vol] 33.9 g/dL Normal 31.4-36.0 [facility] Comment on above: Performed By: #### 1 [id number] #### [facility] [address] [place] [address] MCV (RBC) [Entitic vol] 81.0 fL Normal 80.0-100.0 [facility] Comment on above: Performed By: #### 1 [id number] #### [facility] [address] [place] [address] Platelet mean volume (Bld) [Entitic vol] 8.7 fL Normal 6.4-10.8 [facility] Comment on above: Performed By: #### 1 [id number] #### [facility] [address] [place] [address] Platelets (Bld) [#/Vol] 346.0 E9/L Normal 150.0-500.0 [facility] Comment on above: Performed By: #### 1 [id number] #### [facility] [address] [place] [address] RBC (Bld) [#/Vol] 5.2 E12/L Normal 4.3-5.9 [facility] Comment on above: Performed By: #### 1 [id number] #### [facility] [address] [place] [address] WBC corrected for nucl RBC Auto (Bld) [#/Vol] 8.7 E9/L Normal 4.0-11.0 [facility] Comment on above: Performed By: #### 1 [id number] #### [facility] [address] [place] [address] CHEMISTRYOrdered By: SYSTEM SYSTEM on 08-18-2023 Albumin [Mass/Vol] 4.6 g/dL Normal 3.3 - 5.0 gm/dL [facility] Albumin/Globulin [Mass ratio] 1.4 {ratio} Normal 1.1 - 2.2 [facility] ALP [Catalytic activity/Vol] 65 [iU]/d Normal 21 - 98 Int._Unit/L [facility] ALT No additional P-5'-P [Catalytic activity/Vol] 21 [iU]/d Normal 6 - 46 Int._Unit/L [facility] Anion gap [Moles/Vol] 8 mmol/L Normal 6 - 16 mEq/L [facility] AST [Catalytic activity/Vol] 24 [iU]/d Normal 5 - 43 Int._Unit/L [facility] Bilirubin [Mass/Vol] 0.2 mg/dL Normal 0.0 - 1 .1 mg/dL [facility] Bilirubin.direct [Mass/Vol] mg/dL Normal 0.1 - 0.4 mg/dL [facility] Bilirubin.indirect [Mass or moles/Vol] Unable to Calculate mg/dL Invalid Interpretation Code 0.1 - 0.9 mg/dL [facility] Calcium [Mass/Vol] 9.2 mg/dL Normal 8.9 - 11. 1 mg/dL [facility] Chloride [Moles/Vol] 107 mmol/L Normal 101 - 1 11 mmol/L [facility] CO2 [Moles/Vol] 25 mmol/L Normal 21 - 31 mmol/L [facility] Creatinine [Mass/Vol] 0.7 mg/dL Normal 0.5 - 1.3 mg/dL [facility] GFR/1.73 sq M.predicted among non-blacks MDRD (S/P/Bld) [Vol rate/Area] 116 mL/min/1.73 m2 Normal >=59mL/min/1. 73 m2 [facility] Comment on above: Interpretive Data: C hronic kidney disease could be indicated at eGFR's of less than 60 mL/min/1.73m2. Kidney failure is indicated at less than 15 mL/min/1.73m2. Globulin (S) [Mass/Vol] 3.3 g/dL Normal 1.4 - 4.0 gm/dL [facility] Glucose [Mass/Vol] 98 mg/dL Normal 55 - 199 mg/dL [facility] Comment on above: Interpretive Data: I f this glucose result represents a fasting glucose, interpretation should refer to the following reference range: 55-99 mg/dL Lipase [Catalytic activity/Vol] 40 U/L Normal 13 - 58 unit/L [facility] Potassium [Moles/Vol] 4.0 mmol/L Normal 3.5 - 5.3 mmol/L [facility] Protein [Mass/Vol] 7.9 g/dL High 6.0 - 7.8 gm/dL [facility] Remisol Sodium [Moles/Vol] 136 mmol/L Normal 135 - 145 mmol/L [facility] Remisol Urea nitrogen [Mass/Vol] 18 mg/dL Normal 5 - 21 mg/dL [facility] Remisol Urea nitrogen/Creatinine [Mass ratio] 26 mg/mg High 10 - 20 [facility] Remisol Consent for Treatmenton 07-22 Consent for Treatment [id number] #1.00TIFF Normal [facility] Discharge Instructionson Discharge Instructions [id number]#1.00TIFF Normal [facility] ED Clinical Summaryon 2022 ED Clinical Summary [address] [address] ED Clinical Summary Person Information Name: MEREDITH CHAHAL/[facility] Age: 33 Years : 1990 Sex: Female Language: Tuvaluan PCP: Inderjit Joshi MD Marital Status: Visit Id: Visit Reason: Hematuria; POSS HEMATURIA Speciality: Acuity: 4 Enc Type: Emergency Med Service: Emergency Arrival: 08/18/2023 10:03:40 Discharge: 08/18/2023 11:46:51 LOS: 000 01:43 Checkin: 08/18/2023 10:03:40 Checkout: 08/18/2023 11:46:51 Dispo Type: Home (Routine DC) EVENTS: Event Name Event Status Request Date/Time Start Date/Time Complete Date/Time Arrive Complete 08/18/2023 10:03:40 08/18/2023 10:03:40 08/18/2023 10:03:40 Document Home Meds Request 08/18/2023 10:03:40 Triage Complete 08/18/2023 10:03:40 08/18/2023 10:20:24 08/18/2023 10:20:24 Registration Complete 08/18/2023 10:07:53 08/18/2023 10:07:53 08/18/2023 10:07:53 Reg Complete Request 08/18/2023 10:07:53 Reg Bed Request Complete 08/18/2023 10:07:53 08/18/2023 10:07:53 08/18/2023 10:07:53 Bed Assign Complete 08/18/2023 10:10:19 08/18/2023 10:10:19 08/18/2023 10:10:19 Dr Exam Complete 08/18/2023 10:10:19 08/18/2023 10:12:02 08/18/2023 10:12:02 RN Exam Complete 08/18/2023 10:10:19 08/18/2023 10:32:19 08/18/2023 10:32:19 Registration Request 08/18/2023 10:12:02 Pending Labs Collected 08/18/2023 10:33:20 Lab Collected 08/18/2023 10:33:20 Urine Collect Complete 08/18/2023 10:33:20 08/18/2023 11:21:10 Pending Labs Complete 08/18/2023 10:46:23 08/18/2023 10:46:23 08/18/2023 11:15:39 Lab Complete 08/18/2023 10:46:23 08/18/2023 10:46:23 08/18/2023 11:15:39 Pending Labs Complete 08/18/2023 11:10:57 08/18/2023 11:10:57 08/18/2023 11:11:04 Lab Complete 08/18/2023 11:10:57 08/18/2023 11:10:57 08/18/2023 11:11:04 Pending Labs Complete 08/18/2023 11:22:09 08/18/2023 11:22:09 08/18/2023 11:22:09 Pending Labs Complete 08/18/2023 11:23:52 08/18/2023 11:23:52 08/18/2023 11:23:53 Discharge Complete 08/18/2023 11:41:31 08/18/2023 11:46:58 08/18/2023 11:46:58 Transfer Complete 08/18/2023 11:46:58 08/18/2023 11:46:58 08/18/2023 11:46:58 ADDRESS: [address] [place] [address] [address] [place] [id number] PHYS DOC NOTES: MEDICAL INFORMATION: Prescriptions Given: New Medications Printed Prescriptions cephalexin (cephalexin 500 mg Cap) 1 Capsules By Mouth every 12 hours for 7 Days. Refills: 0. PATIENT EDUCATION INFORMATION: Instructions: Urinary Tract Infection, Adult Follow up: With: Address: When: Inderjit Joshi [facility] [facility], [place] [address] Business (1) In 3 days 08/21/2023 Comments: Call the office of your primary care doctor to arrange for follow-up within the above-stated timeframe. Follow-up with your primary care doctor about this ED visit. You should review your labs, imaging, and diagnoses from this ED visit with your primary care physician. If you were prescribed medications you should discuss possible side-effects and drug interactions with your pharmacist. Call 911 or go to the nearest Emergency Department if you develop any new or worsening symptoms. DIAGNOSIS: UTI symptoms Normal [facility] ED Patient Education Noteon 08-18-2023 ED Patient Education Note Obstetrics and Gynecology Urinary Tract Infection, Adult A urinary tract infection (UTI) is an infection of any part of the urinary tract. The urinary tract includes the kidneys, ureters, bladder, and urethra. These organs make, store, and get rid of urine in the body. An upper UTI affects the ureters and kidneys. A lower UTI affects the bladder and urethra. What are the causes? Most urinary tract infections are caused by bacteria in your genital area around your urethra, where urine leaves your body. These bacteria grow and cause inflammation of your urinary tract. What increases the risk? You are more likely to develop this condition if: ? You have a urinary catheter that stays in place. ? You are not able to control when you urinate or have a bowel movement (incontinence). ? You are female and you: ? Use a spermicide or diaphragm for control. ? Have low estrogen levels. ? Are . ? You have certain genes that increase your risk. ? You are sexually active. ? You take antibiotic medicines. ? You have a condition that causes your flow of urine to slow down, such as: ? An enlarged prostate, if you are male. ? Blockage in your urethra. ? A kidney stone. ? A nerve condition that affects your bladder control (neurogenic bladder). ? Not getting enough to drink, or not urinating often. ? You have certain medical conditions, such as: ? Diabetes. ? A weak disease-fighting system (immunesystem). ? Sickle cell disease. ? Gout. ? Spinal cord injury. What are the signs or symptoms? Symptoms of this condition include: ? Needing to urinate right away (urgency). ? Frequent urination. This may include small amounts of urine each time you urinate. ? Pain or burning with urination. ? Blood in the urine. ? Urine that smells bad or unusual. ? Trouble urinating. ? Cloudy urine. ? Vaginal discharge, if you are female. ? Pain in the abdomen or the lower back. You may also have: ? Vomiting or a decreased appetite. ? Confusion. ? Irritability or tiredness. ? A fever or chills. ? Diarrhea. The first symptom in older adults may be confusion. In some cases, they may not have any symptoms until the infection has worsened. How is this diagnosed? This condition is diagnosed based on your medical history and a physical exam. You may also have other tests, including: ? Urine tests. ? Blood tests. ? Tests for STIs (sexually transmitted infections). If you have had more than one UTI, a cystoscopy or imaging studies may be done to determine the cause of the infections. How is this treated? Treatment for this condition includes: ? Antibiotic medicine. ? Mzng-cmi-fwqzutw medicines to treat discomfort. ? Drinking enough water to stay hydrated. If you have frequent infections or have other conditions such as a kidney stone, you may need to see a health care provider who specializes in the urinary tract (urologist). In rare cases, urinary tract infections can cause sepsis. Sepsis is a life-threatening condition that occurs when the body responds to an infection. Sepsis is treated in the hospital with IV antibiotics, fluids, and other medicines. Follow these instructions at home: Medicines ? Take ahbd-msl-kfdksln and prescription medicines only as told by your health care provider. ? If you were prescribed an antibiotic medicine, take it as told by your health care provider. Do not stop using the antibiotic even if you start to feel better. General instructions ? Make sure you: ? Empty your bladder often and completely. Do not hold urine for long periods of time. ? Empty your bladder after sex. ? Wipe from front to back after urinating or having a bowel movement if you are female. Use each tissue only one time when you wipe. ? Drink enough fluid to keep your urine pale yellow. ? Keep all follow-up visits. This is important. Contact a health care provider if: ? Your symptoms do not get better after 1?2 days. ? Your symptoms go away and then return. Get help right away if: ? You have severe pain in your back or your lower abdomen. ? You have a fever or chills. ? You have nausea or vomiting. Summary ? A urinary tract infection (UTI) is an infection of any part of the urinary tract, which includes the kidneys, ureters, bladder, and urethra. ? Most urinary tract infections are caused by bacteria in your genital area. ? Treatment for this condition often includes antibiotic medicines. ? If you were prescribed an antibiotic medicine, take it as told by your health care provider. Do not stop using the antibiotic even if you start to feel better. ? Keep all follow-up visits. This is important. This information is not intended to replace advice given to you by your health care provider. Make sure you discuss any questions you have with your health care provider. Document Revised: 05/19/2021 Document Revie (more content not included)... Normal [facility] ED Patient Summaryon 023 ED Patient Summary [place] [id number] Patient Discharge Instructions Person Information Name: MEREDITH CHAHAL Age: 33 Years Arrival Date: 08/18/2023 10:03:40 Discharge Diagnosis: UTI symptoms Primary Care Physician: Inderjit Joshi MD Provider Information Primary Provider: Advanced Wire Cutter:Ryan Dorsey PA-C The exam and treatment you received in the Emergency Department were for an urgent problem and are not intended as complete care. It is important that you follow up with a doctor, nurse practitioner, or physician?s high school assistant principal for ongoing care. If your symptoms become worse or you do not improve as expected and you are unable to reach your usual health care provider, you should return to the Emergency Department. We are available 24 hours a day. MEREDITH CHAHAL has been given the following list of patient education materials, prescriptions and follow-up instructions: Follow-up Instructions: With: Address: When: Inderjit Joshi [address] [place] [address], [address] [place], [place] [id number] Business (1) In 3 days 08/21/2023 Comments: Call the office of your primary care doctor to arrange for follow-up within the above-stated timeframe. Follow-up with your primary care doctor about this ED visit. You should review your labs, imaging, and diagnoses from this ED visit with your primary care physician. If you were prescribed medications you should discuss possible side-effects and drug interactions with your pharmacist. Call 911 or go to the nearest Emergency Department if you develop any new or worsening symptoms. In the event that this physician does not participate in your insurance network, please consult with your insurance company to find a nearby participating provider. Patient Education Materials: Urinary Tract Infection, Adult A MESSAGE TO ALL PATIENTS REGARDING OPIOIDS PRESCRIPTION OPIOIDS: WHAT YOU NEED TO KNOW Prescription opioids can be used to help relieve gwdqgjxl-vi-ciplcj pain and are often prescribed following a surgery or injury, or for certain health conditions. These medications can be an important part of the treatment but also come with serious risks. It is important to work with your healthcare provider to make sure you are getting the safest, most effective care. WHAT ARE THE RISKS AND SIDE EFFECTS OF OPIOID USE? Prescription opioids carry serious risks of addiction and overdose, especially with prolonged use. An opioid overdose, often marked by slowed breathing, can cause sudden . The use of prescription opioids can have a number of side effects as well, even when taken as directed: ? Tolerance?meaning you might need to take more of the medication for the same pain relief ? Physical dependence?meaning you have symptoms of withdrawal when a medication is stopped ? Increased sensitivity to pain ? Constipation ? Nausea, vomiting, and dry mouth ? Sleepiness and dizziness ? Confusion ? Depression ? Low levels of testosterone that can result in lower sex drive, energy, and strength ? Itching and sweating RISKS ARE GREATER WITH: ? History of drug misuse, substance use disorder, or overdose ? Mental health conditions (such as depression or anxiety) ? Sleep apnea ? Older age (65 years and older) ? Avoid alcohol while taking prescription opioids. Also, unless specifically advised by your health care provider, medications to avoid include: ? Benzodiazepines (such as Xanax or Valium) ? Muscle relaxants (such as Soma or Flexeril) ? Hypnotics (such as Ambien or Lunesta) ? Other prescription opioids KNOW YOUR OPTIONS Talk to your health care provider about ways to manage your pain that don?t involve prescription opioids. Some of these options may actually work better and have fewer risks and side effects. Options may include: ? Pain relievers such as acetaminophen, ibuprofen, and naproxen ? Some medication that are also used for depression or seizures ? Physical therapy and exercise ? Cognitive behavioral therapy, a psychological, goal-directed approach, in which patients learn how to modify physical, behavioral, and emotional triggers of pain and stress. IF YOU ARE PRESCRIBED OPIOIDS FOR PAIN: ? Never take opioids in greater amounts or more often than prescribed. ? Follow up with your primary health care provider. o Work together to create a plan on how to manage your pain. o Talk about ways to help manage your pain that don?t involve prescription opioids. o Talk about any and all concerns and side effects. ? Help prevent misuse and abuse o Never sell or share prescription opioids. o Never use another person?s prescription opioids. ? Store prescription opioids in a secure place and out of reach of others (this may include visitors, children, friends, and family). ? Safely dispose of unused prescription (more content not included)... Normal [facility] HEMATOLOGYOrdered By: SYSTEM SYSTEM on 08-18-2023 Basophils/100 WBC (Bld) 0.4 % Normal 0.0 - 2.0 % [facility]eAutoSS Basophils/Leukocytes Auto (Bld) [Pure # fraction] 0.0 E9/L Normal 0.0 - 0.2 E9/L [facility] Eosinophils/100 WBC (Bld) 1.9 % Normal 0.0 - 8.0 % [facility] Eosinophils/Leukocyte s Auto (Bld) [Pure # fraction] 0.2 E9/L Normal 0.0 - 0.5 E9/L [facility] Lymphocytes/100 WBC (Bld) 21.1 % Normal 14.0 - 50.0 % [facility] Lymphocytes/Leukocyte s Auto (Bld) [Pure # fraction] 1.8 E9/L Normal 1.0 - 4.0 E9/L [facility] Monocytes/100 WBC (Bld) 5.7 % Normal 4.0 - 14.0 % [facility] Monocytes/Leukocytes Auto (Bld) [Pure # fraction] 0.5 E9/L Normal 0.2 - 1.0 E9/L [facility] Neutrophils/100 WBC (Bld) 70.9 % Normal 36.0 - 75.0 % [facility] Neutrophils/Leukocyte s Auto (Bld) [Pure # fraction] 6.2 E9/L Normal 2.0 - 7.5 E9/L [facility] HEMATOLOGYOrdered By: Shonda Bowen on 08-18-2023 Erythrocyte distribution width (RBC) [Ratio] 13.0 % Normal 10.9 - 14.2 % [facility] Hematocrit (Bld) [Volume fraction] 41.8 % Normal 34.0 - 46.0 % [facility] Hemoglobin (Bld) [Mass/Vol] 14.2 g/dL Normal 12.0 - 16.0 gm/dL [facility] MCH (RBC) [Entitic mass] 27.5 pg Normal 27.0 - 34.0 pg [facility] MCHC (RBC) [Mass/Vol] 33.9 g/dL Normal 31.4 - 36.0 gm/dL [facility] MCV (RBC) [Entitic vol] 81.0 fL Normal 80.0 - 100.0 fL [facility] Platelet mean volume (Bld) [Entitic vol] 8.7 fL Normal 6.4 - 10.8 fL [facility] Platelets (Bld) [#/Vol] 346.0 E9/L Normal 150.0 - 500.0 E9/L [facility] RBC (Bld) [#/Vol] 5.2 E12/L Normal 4.3 - 5.9 E12/L [facility] WBC corrected for nucl RBC Auto (Bld) [#/Vol] 8.7 E9/L Normal 4.0 - 11.0 E9/L [facility] Hep Func Panelon 08-18-2023 Bilirubin.indirect [Mass or moles/Vol] UTC Abnormal 0.1-0.9 [facility] Comment on above: Result Comment: Resu lt verified by Discern Rule. Performed result UTC (Unable to Calculate) was sent as an Alpha code due the inability to calculate a valid numeric value. Performed By: #### 1 [id number] #### [facility] [address] [place] [address] Albumin [Mass/Vol] 4.6 g/dL Normal 3.3-5.0 [facility] Comment on above: Performed By: #### 1 [id number] #### [facility] [address] [place] [address] Albumin/Globulin (S) [Mass conc ratio] 1.4 Normal 1.1-2.2 [facility] Comment on above: Performed By: #### 1 [id number] #### [facility] [address] [place] [address] ALP [Catalytic activity/Vol] 65 Int._Unit/L Normal 21-98 [facility] Comment on above: Performed By: #### 1 [id number] #### [facility] [address] [place] [address] ALT No additional P-5'-P [Catalytic activity/Vol] 21 Int._Unit/L Normal 6-46 [facility] Comment on above: Performed By: #### 1 [id number] #### [facility] [address] [place] [address] AST [Catalytic activity/Vol] 24 Int._Unit/L Normal 5-43 [facility] Comment on above: Performed By: #### 1 [id number] #### [facility] [address] [place] [address] Bilirubin [Mass/Vol] 0.2 mg/dL Normal 0.0-1.1 [facility] Comment on above: Performed By: #### 1 [id number] #### [facility] [address] [place] [address] Globulin (S) [Mass/Vol] 3.3 g/dL Normal 1.4-4.0 [facility] Comment on above: Performed By: #### 1 [id number] #### [facility] [address] [place] [address] Protein [Mass/Vol] 7.9 g/dL High 6.0-7.8 [facility] Comment on above: Performed By: #### 1 [id number] #### [facility] [address] [place] [address] Bilirubin.direct [Mass/Vol] mg/dL Normal 0.1-0.4 [facility] Comment on above: Performed By: #### 1 [id number] #### [facility] [address] [place] [address] Lipase Levelon 08-18-2023 Lipase [Catalytic activity/Vol] 40 U/L Normal 13-58 [facility] Comment on above: Performed By: #### 1 [id number] #### [facility] [address] [place] [address] UA With Cult Reflexon 2022 Bacteria LM Ql (Urine sed) TRACE Normal Trace [facility] Comment on above: Performed By: #### 1 [id number] #### [facility] [address] [place] [address] Bilirubin Ql (U) Negative Normal Negative [facility] Comment on above: Performed By: #### 1 [id number] #### [facility] [address] [place] [address] Clarity (U) CLEAR Normal Clear [facility] Comment on above: Performed By: #### 1 [id number] #### [facility] [address] [place] [address] Color (U) YELLOW Normal Yellow [facility] Comment on above: Performed By: #### 1 [id number] #### [facility] [address] [place] [address] Epithelial cells.squamous LM.HPF (Urine sed) [#/Area] 5-8 Normal 0-2 [facility] Comment on above: Performed By: #### 1 [id number] #### [facility] [address] [place] [address] Glucose Test strip (U) [Mass/Vol] Negative Normal Negative [facility] Comment on above: Performed By: #### 1 [id number] #### [facility] [address] [place] [address] Hemoglobin Ql (U) Negative Normal Negative [facility] Comment on above: Performed By: #### 1 [id number] #### [facility] [address] [place] [address] Ketones (U) [Mass/Vol] Negative Normal Negative [facility] Comment on above: Performed By: #### 1 [id number] #### [facility] [address] [place] [address] [place].plasma/Lithiu m.RBC (Bld) [Mass ratio] 0-3 Normal 0-3 [facility] Comment on above: Performed By: #### 1 [id number] #### [facility] [address] [place] [address] Mucus Ql (Urine sed) 2+ Normal [facility] Comment on above: Performed By: #### 1 [id number] #### [facility] [address] [place] [address] Nitrite Ql (U) Negative Normal Negative [facility] Comment on above: Performed By: #### 1 [id number] #### [facility] [address] [place] [address] pH (U) 5.5 [pH] Invalid Interpretation Code 5.0-9.0 [facility] Comment on above: Performed By: #### 1 [id number] #### [facility] [address] [place] [address] Protein (U) [Mass/Vol] Negative Normal Negative [facility] Comment on above: Performed By: #### 1 [id number] #### [facility] [address] [place] [address] Specific gravity (U) [Rel density] 1.025 Invalid Interpretation Code 1.005-1.030 [facility] Comment on above: Performed By: #### 1 [id number] #### [facility] [address] [place] [address] Type of Urine collection method Clean Catch Normal [facility] Comment on above: Performed By: #### 1 [id number] #### [facility] [address] [place] [address] Urobilinogen Qn (U) 0.2 {Carl'U}/dL Normal 0.0-1.0 [facility] Comment on above: Performed By: #### 1 [id number] #### [facility] [address] [place] [address] WBC Auto Ql (U) Negative Normal Negative [facility] Comment on above: Performed By: #### 1 [id number] #### [facility] [address] [place] [address] WBC LM.HPF (Urine sed) [#/Area] 0-5 Normal 0-5 [facility] Comment on above: Performed By: #### 1 [id number] #### [facility] [address] [place] [address] URINALYSISOrdered By: Adrian Lagos on 08-18-2023 Bacteria LM Ql (Urine sed) Trace /HPF Normal Trace/HPF [facility] UA Auto SS Bilirubin Ql (U) Negative (08/18/23 10:48 AM) Normal Negative [facility] UA Auto SS Clarity (U) Clear (08/18/23 10:48 AM) Normal Clear [facility] UA Auto SS Color (U) Yellow (08/18/23 10:48 AM) Normal Yellow [facility] UA Auto SS Epithelial cells.squamous LM.HPF (Urine sed) [#/Area] 5-8 /HPF Normal 0-2/HPF [facility] UA Aut o SS Glucose Test strip (U) [Mass/Vol] Negative (08/18/23 10:48 AM) Normal Negative [facility] UA Auto SS Hemoglobin Ql (U) Negative (08/18/23 10:48 AM) Normal Negative [facility] UA Auto SS Ketones (U) [Mass/Vol] Negative (08/18/23 10:48 AM) Normal Negative [facility] UA Auto SS [place].plasma/Lithiu m.RBC (Bld) [Mass ratio] 0-3 /HPF Normal 0-3/HPF [facility] UA Auto SS Mucus Ql (Urine sed) 2+ (08/18/23 10:48 AM) Normal [facility] UA Auto SS Nitrite Ql (U) Negative (08/18/23 10:48 AM) Normal Negative [facility] UA Auto SS pH (U) 5.5 *NA* (08/18/23 10:48 AM) Invalid Interpretation Code 5.0 - 9.0 [facility] UA Auto SS Protein (U) [Mass/Vol] Negative (08/18/23 10:48 AM) Normal Negative [facility] UA Auto SS Specific gravity (U) [Rel density] 1.025 *NA* (08/18/23 10:48 AM) Invalid Interpretation Code 1.005 - 1.030 [facility] UA Auto SS UA Spec Desc Clean Catch (08/18/23 10:48 AM) Normal [facility] UA Auto SS Urobilinogen Qn (U) 0.9800327 {Carl'U}/dL Normal 0.0 - 1.0 EU/dL [facility] UA Auto SS WBC Auto Ql (U) Negative (08/18/23 10:48 AM) Normal Negative [facility] UA Auto SS WBC LM.HPF (Urine sed) [#/Area] 0-5 /HPF Normal 0-5/HPF [facility] UA Auto SS eGFRon 08-18-2023 GFR/1.73 sq M.predicted among non-blacks MDRD (S/P/Bld) [Vol rate/Area] 116 mL/min/1.73 m2 Normal >=59 [facility] Comment on above: Order Comment: Order added by Discern Expert. Result Comment: Review Coordinator rosalinda kidney disease could be indicated at eGFR's of less than 60 mL/min/1.73m2. Kidney failure is indicated at less than 15 mL/min/1.73m2. Performed By: #### 1 [id number] #### [facility] [address] [place] [address] Vaginitis/Vaginosis, DNA Pro beon 08-16-2023 Amy sp rRNA Probe Ql (Vag fld) Negative Invalid Interpretation Code Negative [facility] Comment on above: Performed By: #### 3 [id number] ####[facility] [address] [place] [address] G. vaginalis rRNA Probe Ql (Genital specimen) Negative Invalid Interpretation Code Negative [facility] Comment on above: Performed By: #### 3 [id number] ####[facility] [address] [place] [address] T. vaginalis rRNA Probe Ql (Genital specimen) Negative Invalid Interpretation Code Negative [facility] Comment on above: Result Comment: Perf ormed at: [facility] [address] [id number] PhD José Miguel Naranjo Performed By: #### 3 [id number] ####[facility] [address] [place] [address] Physician Orderon 08-14-2023 Physician Order [id number]# 1.00TIFF Normal [facility] Covid-19 PCR (CVDTBH)on 09-20 SARS-CoV-2 (COVID-19) RNA CLAUDIA+probe Ql (Unsp spec) Not detected Normal NOT DETECTED [facility] Comment on above: Result Comment: This test is not yet approved or cleared by the [place] FDA. When there are no FDA-approved or cleared tests available, and other criteria are met, FDA can make tests available under an emergency access mechanism called an Emergency Use Authorization (EUA). The EUA for this test is supported by the Magisterial District Judge of Health and Human Service's (HHS's) declaration that circumstances exist to justify the emergency use of in vitro diagnostics for the detection and/or diagnosis of the virus that causes COVID-19. This EUA will remain in effect (meaning this test can be used) for the duration of the COVID-19 declaration justifying emergency of IVDs, unless it is terminated or revoked by FDA (after which the test may no longer be used). When diagnostic testing is negative, the possibility of a false negative should be considered in the context of a patient's recent exposures and the presence of clinical signs and symptoms consistent with SARS-CoV-2. Performed By: #### C VDTB #### [facility] [address] [place] [address] Dr. Salma Ro INFLUENZA A AND B AGon 10-03 [facility] SEE BELOW Normal [facility] Comment on above: Result Comment: Nega tive for Flu B protein antigen. Infection due to Flu B cannot be ruled out. Flu B antigen in the sample may be below the detection limit of the test. Performed By: #### I NFLUAB #### [facility] [address] [place] [address] Dr. Salma Ro INFLUENZA A AG Positive Abnormal NEGATIVE SEE COMMENT [facility] Comment on above: Performed By: #### I NFLUAB #### [facility] [address] [place] [address] Dr. Salma Ro INFLUENZA B AG Negative Normal NEGATIVE SEE COMMENT [facility] Comment on above: Performed By: #### I NFLUAB #### [facility] [address] [place] [address] Dr. Salma Ro INFLUPOS SEE BELOW Normal [facility] Comment on above: Result Comment: NOTE : Live attenuated influenzae vaccine viruses can cause a positive result for a rapid influenza diagnostic test if administered up to 7 days prior to rapid testing. Performed By: #### I NFLUAB #### [facility] [address] [place] [address] Dr. Salma Ro INTERNAL CONTROLS Within Normal Limits Normal Wi thin Normal Limits [facility] Comment on above: Performed By: #### I NFLUAB #### [facility] [address] [place] [address] Dr. Salma Ro INSULINon 01-11-2022 Insulin 27.8 uIU/mL Critically high 2.6-24.9 [facility] Comment on above: Performed By: #### I NSULIN #### [facility] [address] [place] [address] Dr. Salma Ro CBC AUTO DIFFon 01-10-2022 BASO # 0.0 103/ul Normal 0.0-0.1 [facility] Comment on above: Performed By: #### I NSULIN #### [facility] [address] [place], [place] [id number] Dr. Salma Ro Basophils/100 WBC (Bld) 0.4 % Normal 0.2-2.0 [facility] Comment on above: Performed By: #### I NSULIN #### [facility] [address] [place] [address] Dr. Salma Ro EO # 0.2 103/ul Normal 0.0-0.7 [facility] Comment on above: Performed By: #### I NSULIN #### [facility] [address] [place] [address] Dr. Salma Ro Eosinophils/100 WBC (Bld) 1.8 % Normal 0.9-7.0 [facility] Comment on above: Performed By: #### I NSULIN #### [facility] [address] [place] [address] Dr. Salma Ro Erythrocyte distribution width (RBC) [Ratio] 12.9 % Normal 11.0-15.0 [facility] Comment on above: Performed By: #### I NSULIN #### [facility] [address] [place] [address] Dr. Salma Ro Hematocrit (Bld) [Volume fraction] 38.0 % Normal 36.0-48.0 [facility] Comment on above: Performed By: #### I NSULIN #### [facility] [address] [place] [address] Dr. Salma Ro Hemoglobin (Bld) [Mass/Vol] 12.6 g/dL Normal 12.0-16.0 [facility] Comment on above: Performed By: #### I NSULIN #### [facility] [address] [place] [address] Dr. Salma Ro IG # 0.03 10e3/ul Normal 0.00-0.03 [facility] Comment on above: Performed By: #### I NSULIN #### [facility] [address] [place] [address] Dr. Salma Ro IG % 0.4 % Normal 0.0-0.5 [facility] Comment on above: Performed By: #### I NSULIN #### [facility] [address] [address] [address] Salma Ro LYMPH # 2.1 103/ul Normal 1.2-3.8 [facility] Comment on above: Performed By: #### I NSULIN #### [facility] [address] [place] [address] Dr. Salma Ro Lymphocytes/100 WBC (Bld) 24.6 % Normal 20.5-60.0 [facility] Comment on above: Performed By: #### I NSULIN #### [facility] [address] [place] [address] Dr. Salma Ro MANUAL DIFF REQ NO Normal [facility] Comment on above: Performed By: #### I NSULIN #### [facility] [address] [place] [address] Dr. Salma Ro MCH (RBC) [Entitic mass] 27.1 pg Normal 26.7-34.0 [facility] Comment on above: Performed By: #### I NSULIN #### [facility] [address] [place] [address] Dr. Salma Ro MCHC (RBC) [Mass/Vol] 33.2 g/dL Normal 29.9-35.2 [facility] Comment on above: Performed By: #### I NSULIN #### [facility] [address] [place] [address] Dr. Salma Ro MCV (RBC) [Entitic vol] 81.7 fL Normal 81.0-99.0 [facility] Comment on above: Performed By: #### I NSULIN #### [facility] [address] [place] [address] Dr. Salma Ro MONO # 0.5 103/ul Normal 0.3-0.8 [facility] Comment on above: Performed By: #### I NSULIN #### [facility] [address] [place] [address] Dr. Salma Ro Monocytes/100 WBC (Bld) 6.3 % Normal 1.7-12.0 [facility] Comment on above: Performed By: #### I NSULIN #### [facility] [address] [address] [address] Salma Ro NEUT # 5.6 103/ul Normal 1.4-6.5 [facility] Comment on above: Performed By: #### I NSULIN #### [facility] [address] [place] [address] Dr. Salma Ro Neutrophils/100 WBC (Bld) 66.5 % Normal 43.0-75.0 [facility] Comment on above: Performed By: #### I NSULIN #### [facility] [address] [place] [address] Dr. Salma Ro Platelet mean volume (Bld) [Entitic vol] 10.4 fL Normal 9.5-13.5 [facility] Comment on above: Performed By: #### I NSULIN #### [facility] [address] [place] [address] Dr. Salma Ro PLT 395 103/ul Normal 150-450 [facility] Comment on above: Performed By: #### I NSULIN #### [facility] [address] [place] [address] Dr. Salma Ro RBC 4.65 106/ul Normal 4.20-5.40 [facility] Comment on above: Performed By: #### I NSULIN #### [facility] [address] [place] [address] Dr. Salma Ro WBC 8.4 103/ul Normal 4.0-11.0 [facility] Comment on above: Performed By: #### I NSULIN #### [facility] [address] [place] [address] Dr. Salma Ro FREE THYROXINE INDEX T7on FTI 2.79 Normal [facility] Comment on above: Performed By: #### L IPID, T7, TSH, CMP #### [facility] [address] [place] [address] Dr. Salma Ro T3U 34.0 % Normal 23.5-40.5 [facility] Comment on above: Performed By: #### L IPID, T7, TSH, CMP #### [facility] [address] [place] [address] Dr. Salma Ro T4 [Mass/Vol] 8.20 ug/dL Normal 5.53-11.00 [facility] Comment on above: Performed By: #### L IPID, T7, TSH, CMP #### [facility] [address] [place] [address] Dr. Salma Ro GLYCOHEMOGLOBIN A1Con 2021 ADA RECOMMENDATION ADA THERAPEUTIC TARGET 6.0 - 7.0 ACTION SUGGESTED > 7.0 Normal [facility] Comment on above: Performed By: #### A 1C #### [facility] [address] [address] [address] Salma Ro Glucose [Mass/Vol] 114 mg/dL Normal [facility] Comment on above: Performed By: #### A 1C #### [facility] [address] [place] [address] Dr. Salma Ro HbA1c (Bld) [Mass fraction] 5.6 % Normal <=6.0 [facility] Comment on above: Performed By: #### A 1C #### [facility] [address] [address] [address] Salma Ro IRONon 01-10-2022 Iron [Mass/Vol] 60.0 ug/dL Normal 37.0-170.0 [facility] Comment on above: Performed By: #### I KRISTA VITAD #### [facility] [address] [place] [address] Dr. Salma Ro LIPID PROFILEon 01-10-2022 CHOL-HDL RATIO NORM SEE BELOW Normal [facility] Comment on above: Result Comment: 3.3 - 4.4 LOW RISK 4.4 - 7.1 AVERAGE RISK 7.1 - 11.0 MODERATE RISK >11.0 HIGH RISK Performed By: #### L IPID, T7, TSH, CMP #### [facility] [address] [address] [address] Salma Ro Cholesterol [Mass/Vol] 171 mg/dL Normal <=200 [facility] Comment on above: Performed By: #### L IPID, T7, TSH, CMP #### [facility] [address] [address] [address] Salma oR Cholesterol in HDL [Mass/Vol] 36 mg/dL Critically low 40-60 [facility] Comment on above: Performed By: #### L IPID, T7, TSH, CMP #### [facility] [address] [place] [address] Dr. Salma Ro Cholesterol in LDL [Mass/Vol] 98.4 mg/dL Normal [facility] Comment on above: Performed By: #### L IPID, T7, TSH, CMP #### [facility] [address] [address] [address] Salma Ro Cholesterol.total/Cho lesterol in HDL [Mass ratio] 4.8 {ratio} Normal [facility] Comment on above: Performed By: #### L IPID, T7, TSH, CMP #### [facility] [address] [place] [address] Dr. Salma Ro HDL NORMAL > or = 60 mg/dl - LOW CARDIOVASCULAR RISK <40 mg/dl - HIGH CARDIOVASCULAR RISK Normal [facility] Comment on above: Performed By: #### L IPID, T7, TSH, CMP #### [facility] [address] [address] [address] Salma Ro LDL CALC NORMAL SEE BELOW Normal [facility] Comment on above: Result Comment: <100 mg/dl OPTIMAL 100 - 129 mg/dl NEAR OR ABOVE OPTIMAL 130 - 159 mg/dl BORDERLINE HIGH 160 - 189 mg/dl HIGH >190 mg/dl VERY HIGH Performed By: #### L IPID, T7, TSH, CMP #### [facility] [address] [place] [address] Dr. Salma Ro Triglyceride [Mass/Vol] 183 mg/dL Critically high <=150 [facility] Comment on above: Performed By: #### L IPID, T7, TSH, CMP #### [facility] [address] [address] [address] Salma Ro VLDL CALC 36.6 mg/dL Normal [facility] Comment on above: Performed By: #### L IPID, T7, TSH, CMP #### [facility] [address] [address] [address] Salma Ro PROF 14(COMP METB)on 022 Albumin [Mass/Vol] 4.0 g/dL Normal 3.4-5.0 [facility] Comment on above: Performed By: #### L IPID, T7, TSH, CMP #### [facility] [address] [address] [address] Salma Ro Albumin/Globulin [Mass ratio] 1.1 {ratio} Normal [facility] Comment on above: Performed By: #### L IPID, T7, TSH, CMP #### [facility] [address] [place] [address] Dr. Salma Ro ALP [Catalytic activity/Vol] 100 U/L Normal 46-116 [facility] Comment on above: Performed By: #### L IPID, T7, TSH, CMP #### [facility] [address] [place] [address] Dr. Salma Ro ALT [Catalytic activity/Vol] 40 U/L Normal 14-59 [facility] Comment on above: Performed By: #### L IPID, T7, TSH, CMP #### [facility] [address] [address] [address] Salma Ro Anion gap [Moles/Vol] 14.4 mmol/L Normal [facility] Comment on above: Performed By: #### L IPID, T7, TSH, CMP #### [facility] [address] [address] [address] Salma Ro AST [Catalytic activity/Vol] 17 U/L Normal 15-37 [facility] Comment on above: Performed By: #### L IPID, T7, TSH, CMP #### [facility] [address] [address] [address] Salma Ro Bilirubin [Mass/Vol] 0.2 mg/dL Normal 0.2-1.3 [facility] Comment on above: Performed By: #### L IPID, T7, TSH, CMP #### [facility] [address] [address] [address] Salma Ro Calcium [Mass/Vol] 8.6 mg/dL Normal 8.5-10.1 [facility] Comment on above: Performed By: #### L IPID, T7, TSH, CMP #### [facility] [address] [place] [address] Dr. Salma Ro Chloride [Moles/Vol] 105 mmol/L Normal 98-107 [facility] Comment on above: Performed By: #### L IPID, T7, TSH, CMP #### [facility] [address] [place] [address] Dr. Salma Ro CO2 [Moles/Vol] 26.1 mmol/L Normal 22.0-30.0 [facility] Comment on above: Performed By: #### L IPID, T7, TSH, CMP #### [facility] [address] [place] [address] Dr. Salma Ro Creatinine [Mass/Vol] 0.72 mg/dL Normal 0.52-1.04 [facility] Comment on above: Performed By: #### L IPID, T7, TSH, CMP #### [facility] [address] [place] [address] Dr. Salma Ro EGFR-AF TURKMEN >60 Normal >=60 [facility] Comment on above: Performed By: #### L IPID, T7, TSH, CMP #### [facility] [address] [place] [address] Dr. Salma Ro EGFR-NON AF TURKMEN >60 Normal >=60 [facility] Comment on above: Performed By: #### L IPID, T7, TSH, CMP #### [facility] [address] [place] [address] Dr. Salma Ro Globulin (S) [Mass/Vol] 3.7 g/dL Normal [facility] Comment on above: Performed By: #### L IPID, T7, TSH, CMP #### [facility] [address] [place] [address] Dr. Salma Ro Glucose [Mass/Vol] 105 mg/dL Normal 74-106 [facility] Comment on above: Performed By: #### L IPID, T7, TSH, CMP #### [facility] [address] [place] [address] Dr. Salma Ro Potassium [Moles/Vol] 4.5 mmol/L Normal 3.4-5.0 [facility] Comment on above: Performed By: #### L IPID, T7, TSH, CMP #### [facility] [address] [place] [address] Dr. Salma Ro Protein [Mass/Vol] 7.7 g/dL Normal 6.1-8.2 [facility] Comment on above: Performed By: #### L IPID, T7, TSH, CMP #### [facility] [address] [place] [address] Dr. Salma Ro Sodium [Moles/Vol] 141 mmol/L Normal 137-145 [facility] Comment on above: Performed By: #### L IPID, T7, TSH, CMP #### [facility] [address] [place] [address] Dr. Salma Ro Urea nitrogen [Mass/Vol] 20.0 mg/dL Critically high 7.0-18.0 [facility] Comment on above: Performed By: #### L IPID, T7, TSH, CMP #### [facility] [address] [place] [address] Dr. Salma Ro Urea nitrogen/Creatinine [Mass ratio] 27.8 mg/mg Normal [facility] Comment on above: Performed By: #### L IPID, T7, TSH, CMP #### [facility] [address] [place] [address] Dr. Salma Ro TSHon 01-10-2022 TSH 3.488 uIU/mL Normal 0.470-4.680 [facility] Comment on above: Performed By: #### L IPID, T7, TSH, CMP #### [facility] [address] [place] [address] Dr. Salma Ro TSH RANGE SEE BELOW Normal [facility] Comment on above: Result Comment: <0.3 4 UIU/ml HYPERTHYROID 0.34-5.60 UIU/ml EUTHYROID >5.60 UIU/ml HYPOTHYROID Performed By: #### L IPID, T7, TSH, CMP #### [facility] [address] [address] [address] Salma Ro VITAMIN D 25 OHon 01-10-2022 VIT D 25-OH 28.2 ng/mL Normal [facility] Comment on above: Performed By: #### I KRISTA VITAD #### [facility] [address] [address] [address] Salma Ro VIT D RANGES SEE BELOW Normal [facility] Comment on above: Result Comment: <20 ng/mL Vit D deficient 20 - <30 ng/mL Vit D insufficient 30 - 100 ng/mL Vit D sufficient >100 ng/mL Potential Toxicity Performed By: #### I KRISTA VITAD #### [facility] [address] [place] [address] Dr. Salma oR Vital Signs Date Time Vital Sign Value Performing Clinician Facility 03-27-2024 08:37-0400 Blood Pressure Location Elissa Lue [facility] 03-27-2024 08:37-0400 Body temperature 97.52 [degF] Elissa Lue [facility] 03-27-2024 08:37-0400 Diastolic blood pressure 78 mm[Hg] Elissa Lue [facility] 03-27-2024 08:37-0400 Heart rate 88 /min Elissa Lue [facility] 03-27-2024 08:37-0400 Systolic blood pressure 116 mm[Hg] Elissa Lue [facility] 12-05-2023 09:16-0500 Body height 156.21 cm [facility] 12-05-2023 09:16-0500 Body mass index (BMI) [Ratio] 31.9 kg/m2 [facility] 12-05-2023 09:16-0500 Body weight 78.04 kg [facility] 12-05-2023 09:16-0500 Heart rate 88 /min [facility] 12-05-2023 09:16-0500 Respiratory rate 18 /min [facility] 12-05-2023 09:16-0500 SaO2% (BldA) [Mass fraction] 98 % [facility] 08-29-2023 11:30-0500 Body height 156.21 cm Sammy Point[facility] Other [facility] Other 08-29-2023 11:30-0500 Body mass index (BMI) [Ratio] 33.64 kg/m2 Sammy Pointworthy Other [facility] Other 08-29-2023 11:30-0500 Body weight 82.1 kg Sammy Pointworthy Other [facility] Other 08-29-2023 11:30-0500 Diastolic blood pressure 76 mm[Hg] Sammy Pointworthy Other [facility] Other 08-29-2023 11:30-0500 Respiratory rate 18 /min Sammy Pointworthy Other [facility] Other 08-29-2023 11:30-0500 SaO2% (BldA) [Mass fraction] 100 % Sammy Pointworthy Other [facility] Other 08-29-2023 11:30-0500 Systolic blood pressure 123 mm[Hg] Sammy Pointworthy Other [facility] Other 08-18-2023 10:11-0400 Body temperature 98.24 [degF] Nicholas Thurston [facility] 08-18-2023 10:11-0400 Diastolic blood pressure 92 mm[Hg] Nicholas Thurston [facility] 08-18-2023 10:11-0400 Heart rate 90 /min Nicholas Thurston [facility] 08-18-2023 10:11-0400 Respiratory rate 18 /min Nicholas Thurston [facility] 08-18-2023 10:11-0400 SaO2% (BldA) [Mass fraction] 95 % Nicholas Thurston [facility] 08-18-2023 10:11-0400 Systolic blood pressure 131 mm[Hg] Nicholas Thurston [facility] 07-11-2023 09:00-0400 Body height 156.21 cm Sammy Pointworthy Other [facility] Other 07-11-2023 09:00-0400 Body mass index (BMI) [Ratio] 33.9 kg/m2 [employer] Other [facility] Other 07-11-2023 09:00-0400 Body weight 82.74 kg [employer] Other [facility] Other 07-11-2023 09:00-0400 Diastolic blood pressure 82 mm[Hg] [facility] Other [facility] Other 07-11-2023 09:00-0400 Respiratory rate 20 /min [employer] Other [facility] Other 07-11-2023 09:00-0400 SaO2% (BldA) [Mass fraction] 98 % [employer] Other [facility] Other 07-11-2023 09:00-0400 Systolic blood pressure 119 mm[Hg] [employer] Other [employer] Other Encounters Encounter Date Encounter Type Care Provider Facility Start: 04-13-2024 End: 04-13-2024 ambulatory Elissa Mejia Facility:[facility] Start: 04-13-2024 End: 04-13-2024 Patient encounter procedure Elissa Mejia [facility] Start: 03-27-2024 End: 03-27-2024 ambulatory Elissa Mejia Facility:[facility] Start: 03-27-2024 End: 03-27-2024 Patient encounter procedure Elissa Mejia [facility] Start: 02-10-2024 End: 02-10-2024 ambulatory JODIE NELSONM Not Available Start: 12-05-2023 ambulatory Sammy Mike Facility :[facility] Start: 12-05-2023 End: 12-05-2023 ambulatory [facility] Work Phone: Start: 12-05-2023 End: 12-05-2023 Patient encounter procedure [facility] Work Phone: Start: 11-12-2023 End: 11-12-2023 ambulatory GISELA A PETITTI Not Available Start: 10-15-2023 End: 10-15-2023 ambulatory Star LEONARDO Facility:[facility] Start: 10-15-2023 End: 10-15-2023 Patient encounter procedure Star LEONARDO [facility] Start: 09-03-2023 End: 09-04-2023 ambulatory GISELA A PETITTI Not Available Start: 08-30-2023 End: 08-30-2023 ambulatory Christine Gisella Evanse Facility:[facility] Start: 08-30-2023 End: 08-30-2023 Lab Drop off Christine J Sanaz [facility] Start: 08-29-2023 Follow-up encounter Sammy fatima [facility] Start: 08-29-2023 End: 08-30-2023 ambulatory Inderjit Joshi [facility] [employer] Other Start: 08-19-2023 ambulatory Elissa Mejia Facility:[facility] Start: 08-18-2023 End: 08-18-2023 Emergency department patient visit Nicholas Thurston [facility] Start: 08-14-2023 End: 08-14-2023 ambulatory Christine Yo Facility:[facility] Start: 08-14-2023 End: 08-14-2023 Lab Drop off Christine Yo [facility] Start: 07-22-2023 End: 07-22-2023 ambulatory Sammy Mike Other [facility] Other Start: 07-22-2023 Telephone encounter Sammy fatima [facility] Start: 07-11-2023 End: 07-11-2023 ambulatory Sammy Mike Other [facility] Other Start: 07-11-2023 Nutrition therapy Sammy Mike [facility] Start: 10-03-2022 End: 10-03-[address] INDERJIT JOSHI Facility:[facility] Start: 01-15-2022 Encounter for genera l adult medical examination without abnormal findings DR INDERJIT JOSHI [facility] Start: 01-10-2022 End: 01-11-[address] INDERJIT JOSHI Facility:[facility] Start: 01-10-2022 End: 01-11-2022 Encounter for general adult medical examination without abnormal findings DR INDERJIT JOSHI Facility:[facility] Immunizations Immunization Date Immunization Notes Care Provider Fa luciano 07-08-2022 SARS-CoV-2 (COVID-19 ) [id number] Star LEONARDO [facility] 02-14-2021 SARS-CoV-2 (COVID-19 ) mRNA-1273 vaccine Star LEONARDO [facility] 01-20-2021 SARS-CoV-2 (COVID-19 ) mRNA-1273 vaccine Star LEONARDO [facility] 05-02-2017 tetanus toxoid, redu maximino diphtheria toxoid, and acellular pertussis vaccine, adsorbed Star LEONARDO [facility] 12-17-2011 hepatitis B vaccine, adult dosage Star LEONARDO [facility] 06-26-2011 hepatitis B vaccine, adult dosage Star LEONARDO [facility] 05-23-2011 hepatitis B vaccine, adult dosage Star LEONARDO [facility] Payers Date Payer Category Payer Unknown [id number] 2023 [facility] [id number] 2023 Self-pay [id number] 1988 Unknown [id number] 1988 Unknown [id number] 1988 Unknown [id number] 1988 Unknown [id number] 1988 Unknown [id number] 1988 Unknown [id number] 1988 Unknown [id number] 1988 Unknown [id number] 1988 Unknown [id number] 1988 Unknown [id number] 1959 Unknown [id number] Medicaid [place] Advantage [id number] Unknown [place] BC/BS [id number] Unknown [id number] Unknown [id number] Social History Date Type Detail Facility Unknown if ever smoked [facility] Other Sex Assigned At [facility] Tobacco smoking status No Smokin g Status Entered [facility] Start: 1990 Sex Assigned At Female F [facility] Start: 03-27-2024 Tobacco smoking status Never s moked tobacco (finding) [facility] Tobacco smoking status Never [facility] Functional Status Date Assessment Result Facility 04-13-2024 Functional Status N/A [facility] 03-27-2024 Functional Status N/A [facility] 08-18-2023 Functional Status N/A [facility] Clinical Notes 07-11-2023 to 04-13-2024 Note Date & Type Note Facility 04-13-2024 Evaluation + Plan note Extrac mary from: Title:[facility] Note Author:Roberto JOSHI, Elissa Whyte . Date:04/13/24 Impression and Plan Assessment and Plan: Diagnosis: Atrophic vaginitis ([id number] N95.2, Working, Medical), Intrinsic sphincter deficiency (ISD) (TEM01-GH N36.42, Discharge, Medical), Stress incontinence, female ([id number] N39.3, Discharge, Medical). 33 year old female presented with mixed incontinence and gross hematuria, UTI. Here for cystoscopy today, found to have vaginal/urethral sensitivity, likely secondary to atrophic vaginitis. Also pain with intercourse. Discussed etiology post vaginal delivery and treatment of local now exposed tissues to help with discomfort. Risks/benefits discussed, pt would like to proceed with topical treatment. -Will start premarin cream to urethral/vagina 3x/week for 1 month, then 2x weekly for maintenance ISD/DOMINGA- pt with urinary leakage with valsalva on exam. Again discussed options for treatment. Pt unsure if she would get again in the future. We discussed risks/benefits of urethral bulking agent Bulkamid, a non- particulate homogenous hydrogel consisting of 97.5% water and 2.5% polyacrylamide. At 1 year, overall 77-83% success rate is reported; 92% subjectively improved and 66% objectively dry in Bulkamid group vs 100% subjectively cured and 95% dry with TVT. At 7 years, 67.1% of the Bulkamid patients reported feeling cured or improved, 11.1% no change, and 2.3% worsening of incontinence. 19.5% of patients received a subsequent other incontinence procedure. 0% serious complications were reported with Bulkamid vs 9% serious complications with TVT including difficulty emptying bladder, chronic pain, tape protrusion or erosion. Postoperative complications were transient. Prolonged bladder emptying time was reported in 15.3% of patients and urinary tract infection in 3.5%. Risks of requiring straight cath or temporary catheter were discussed. The effect of Bulkamid on subsequent and delivery, and the impact of subsequent on the effect of Bulkamid, is unknown. - She elected to proceed with Bulkamid under MAC anesthesia. Risks as above. 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 [facility]06-24-2024 Hospital Discharge instructions Patient Education 04/13/2024 09:52:19 [facility] - Cystoscopy Discharge Instructions (CUSTOM) Cystoscopy Voiding after the procedure: there may be some pain, burning, urgency, frequency and blood tinged urine following the procedure. These symptoms usually resolve within 2-5 days. Drink the amount of fluid it takes to keep the urine pink to yellow or clear in color. Drinking enough water and fluids will help to ease any discomfort after your procedure. If you are having problems that seem out of the ordinary, please call. If unable to contact your physician and you feel it is an emergency, go to the nearest emergency room or call 911 Diet you may resume your normal diet. Activity you may resume your normal activities Call if you have a fever over 100 degrees. Follow Up Care 03/27/2024 09:56:51 With:Elissa Mejia Address:Unknown When: Unknown Comments:Office to schedule Bulkamid [facility]06-24-2024 Note [id number] NoteC[facility]oscopy ? Voiding after the procedure: there may be some pain, burning, urgency, frequency and blood tingedurine following the procedure. These symptoms usually resolve within 2-5 days. Drink the amount of fluid it takes to keep the urine pink to yellow or clear in color. Drinking enough water and fluids will help to ease any discomfort after your procedure. ? If you are having problems that seem out of the ordinary, please call. ? If unable to contact your physician and you feel it is an emergency, go to the nearest emergency room or call 911 ? Diet ? you may resume your normal diet. ? Activity ? you may resume your normal activities ? Call if you have a fever over 100 degrees.[facility] 03-27-2024 Hospital Discharge instructions Patient Education 03/27/2024 09:23:24 Injection Treatments for Urinary Incontinence Injection Treatments for Urinary Incontinence Urinary incontinence is a condition in which a person cannot control when he or she passes urine. The cause of this condition is usually a weak urinary sphincter. The urinary sphincter is the muscle that normally keeps urine from leaking. To treat this condition, a material called a bulking agent can be injected either into the urethra or into the bladder neck. The urethra is the part of the body that drains urine from the bladder. The bladder neck is the area where the bladder and urethra connect. The bulking agent is also called an implant. The implant narrows and strengthens the urethra to help control the passing of urine. Urinary incontinence is a common problem for women who have had pregnancies or certain surgeries, such as a hysterectomy, and for men who have had prostate surgery. Tell a health care provider about: Any allergies you have. All medicines you are taking, including vitamins, herbs, eye drops, creams, and yhqo-mlx-rjneekc medicines. Any problems you or family members have had with anesthetic medicines. Any blood disorders you have. Any surgeries you have had. Any medical conditions you have. Whether you are or may be . What are the risks? Generally, this is a safe procedure. However, problems may occur, including: Infection. Bleeding. Allergic reaction to medicines or to the bulking agent. Damage to the urethra or bladder. Difficulty passing urine. A strong and uncomfortable urge to pass urine (urgency). Pain when passing urine or having sex. Failure of the procedure to treat incontinence. A need to repeat the procedure at a later time. What happens before the procedure? Staying hydrated Follow instructions from your health care provider about hydration, which may include: Up to 2 hours before the procedure you may continue to drink clear liquids, such as water, clear fruit juice, black coffee, and plain tea. Eating and drinking restrictions Follow instructions from your health care provider about eating and drinking, which may include: 8 hours before the procedure stop eating heavy meals or foods, such as meat, fried foods, or fatty foods. 6 hours before the procedure stop eating light meals or foods, such as toast or cereal. 6 hours before the procedure stop drinking milk or drinks that contain milk. 2 hours before the procedure stop drinking clear liquids. Medicines Ask your health care provider about: Changing or stopping your regular medicines. This is especially important if you are taking diabetes medicines or blood thinners. Taking medicines such as aspirin and ibuprofen. These medicines can thin your blood. Do not take these medicines unless your health care provider tells you to take them. Taking hvms-tfm-yidsier medicines, vitamins, herbs, and supplements. General instructions Ask your health care provider what steps will be taken to help prevent infection. These steps may include: ?Removing hair at the surgery site. ?Washing skin with a germ-killing soap. ?Taking antibiotic medicine. You may need to have a series of tests done to learn more about your bladder control (urodynamic testing). Plan to have a responsible adult take you home from the hospital or clinic. Plan to have a responsible adult care for you for the time you are told after you leave the hospital or clinic. This is important. What happens during the procedure? An IV may be inserted into one of your veins. You may be given one or more of the following: ?A medicine to help you relax (sedative). ?A medicine to numb your urethra and bladder area (local anesthetic). ?A medicine to make you fall asleep (general anesthetic). A small, thin tube (catheter) may be inserted through your urethra into your bladder. A long, thin tube with a light and camera (cystoscope) will be placed into your urethra and moved up toward your bladder. The camera sends images to a screen in the room. These images will be used tohelp guide the procedure. A long needle will be threaded through the cystoscope. Bulking material will be injected into the tissues around your urethra, near your urinary sphincter. The cystoscope and needle will be removed. The procedure may vary among health care providers and hospitals. What happens after the procedure? Your blood pressure, heart rate, breathing rate, and blood oxygen level will be monitored until youleave the hospital or clinic. If you have a catheter in your urethra, it will be removed to see if you can pass urine. If you have trouble passing urine, a new catheter may be inserted and left in place for a few days. Your bladder may be filled with fluid through your catheter to check for any problems in the bladder. You may be given antibiotic medicine to take at home. If you were given a sedative during the procedure, it can affect you for several hours. Do not drive or operate machinery until your health care provider says that it is safe. Summary Urinary incontinence is when you cannot control when you pass urine. The muscle that normally keepsurine from leaking may be weak. Urinary incontinence is a common problem for women who have had pregnancies or certain surgeries, such as a hysterectomy, and for men who have had prostate surgery. To treat this condition, a bulking agent can be injected either into the urethra or into the bladder neck. This information is not intended to replace advice given to you by your health care provider. Make sure you discuss any questions you have with your health care provider. Document Revised: 05/12/2021 Document Reviewed: 05/12/2021 [employer] Patient Education 2022 [employer]. 03/27/2024 08:34:27 Kegel Exercises Kegel Exercises Kegel exercises can help strengthen your pelvic floor muscles. The pelvic floor is a group of muscles that support your rectum, small intestine, and bladder. In females, pelvic floor muscles also help support the uterus. These muscles help you control the flow of urine and stool (feces). Kegel exercises are painless and simple. They do not require any equipment. Your provider may suggest Kegel exercises to: Improve bladder and bowel control. Improve sexual response. Improve weak pelvic floor muscles after surgery to remove the uterus (hysterectomy) or after , in females. Improve weak pelvic floor muscles after prostate gland removal or surgery, in males. Kegel exercises involve squeezing your pelvic floor muscles. These are the same muscles you squeezewhen you try to stop the flow of urine or keep from passing gas. The exercises can be done while sitting, standing, or lying down, but it is best to vary your position. Ask your health care provider which exercises are safe for you. Do exercises exactly as told by your health care provider and adjust them as directed. Do not begin these exercises until told by your health care provider. Exercises How to do Kegel exercises: 1.Squeeze your pelvic floor muscles tight. You should feel a tight lift in your rectal area. If youare a female, you should also feel a tightness in your vaginal area. Keep your stomach, buttocks, and legs relaxed. 2.Hold the muscles tight for up to 10 seconds. 3.Breathe normally. 4.Relax your muscles for up to 10 seconds. 5.Repeat as told by your health care provider. Repeat this exercise daily as told by your health care provider. Continue to do this exercise for at least 4 6 weeks, or for as long as told by your health care provider. You may be referred to a physical therapist who can help you learn more about how to do Kegel exercises. Depending on your condition, your health care provider may recommend: Varying how long you squeeze your muscles. Doing several sets of exercises every day. Doing exercises for several weeks. Making Kegel exercises a part of your regular exercise routine. This information is not intended to replace advice given to you by your health care provider. Make sure you discuss any questions you have with your health care provider. Document Revised: 02/15/2022 Document Reviewed: 02/15/2022 [employer] Patient Education 2022 [employer]. Follow Up Care 12/25/2023 16:33:02 With:Roberto JOSHI, BULMARO Pérez, URO Address: When: Unknown [facility] [place] 11-09-2023 Evaluation note* Encounter Date Diagnosis Assessment Notes Treatment Notes Treatment Clinical Notes Aug, Obesity, Class I, BM I 30-34.9 (ICD-10 - E66.9) Consultation date 07-11-2023, weight (pounds): 182.4 Follow-up date 08-29-2023, weight (pounds): 181 Plan is to take a weight centric approach to patient care in the treatment of excess adiposity and patient's weight related comorbidities.-Discus sed the impact of excess adiposity on overall health and increased risk of associated health conditions-Discussed treatment options including lifestyle interventions, such as calorie reduction and physical activity, and use of medications as an adjunct to amplify adherence to healthy behavior change-Discussed benefits, risks and side effects of medication. After informed discussion, patient would like to proceedOrders:-Contin ue compounded semaglutide, next dose 1.2 mg once weekly. Patient without side effect -Exercise physiology with Mee -Patient had poor response to phentermine in the past and would like to avoid.-Follow up in clinic in 10 weeksThis note was created with voice recognition software. Please excuse errors in as400 developer. Aug, Dietary surveillance and counseling (ICD-10 - Z71.3) Discussed in detail high-protein, high-fiber, low-fat nutrition plan favoring calorie deficit and lean tissue mass preservation.-Lean protein sources at each meal supplemented with nutrient rich, low calorie density carbohydrates-Focus on consuming calories earlier in the day versus later; breakfast and lunch should be largest meals-Evening meal should be high in protein and low in carbohydrate to maximize lipolysis overnight-Aim for a minimum of 30 g of protein per meal with breakfast, lunch and dinner with total daily intake reaching at least 100 g-If needed, supplement with whey protein powder or premade protein drink low in carbohydrate and low in fat-If hungry between meals, consider protein snack low in carbohydrate and low in fat Aug, Exercise counseling (ICD-10 - Z71.89) Absolute HGS at time of consultation (pounds): 64.4 Absolute HGS at time of follow-up (pounds): 73.4 Discussed in detail exercise interventions to promote lean tissue mass preservation during calorie restriction.-In addition to regularly scheduled endurance and resistance exercise, perform bouts of resistance exercise prior to meals using body weight, resistance bands or dumbbells/weights-Fol lowing meals, consider aerobic exercise, such as brisk walking, to improve blood sugars and to mitigate hyperinsulinemia Aug, Dyslipidemia (ICD-10 - E78.5) Low HDL cholesterol, triglycerides and LDL cholesterol borderline elevated Aug, Prediabetes (ICD-10 - R73.09) A1c 5.9% in 2008. Since this time A1c has hovered around 5.5%. This is due to hyperinsulinemia. Aug, Hyperinsulinemia (ICD-10 - E16.1) Endogenous insulin values increasing over time representing insulin resistance. Explained pathophysiology to patient. [employer] Other 10-30-2023 Hospital Discharge instructions Follow Up Care 08/19/2023 10:13:34 With:JORDEN JOSHI, Star P, URL Address: [address] [place] [address]- When: Unknown [facility] [place] [phone] Evaluation + Plan note Diagnostic Tests Pending * Chlamydia/Gonococcus, CLAUDIA 08/18/23 * Urine Culture 08/18/23 [facility]10-29-2023 Hospital Discharge instructions Patient Education 08/18/2023 11:41:37 Urinary Tract Infection, Adult Urinary Tract Infection, Adult A urinary tract infection (UTI) is an infection of any part of the urinary tract. The urinary tractincludes the kidneys, ureters, bladder, and urethra. These organs make, store, and get rid of urinein the body. An upper UTI affects the ureters and kidneys. A lower UTI affects the bladder and urethra. What are the causes? Most urinary tract infections are caused by bacteria in your genital area around your urethra, where urine leaves your body. These bacteria grow and cause inflammation of your urinary tract. What increases the risk? You are more likely to develop this condition if: You have a urinary catheter that stays in place. You are not able to control when you urinate or have a bowel movement (incontinence). You are female and you: ?Use a spermicide or diaphragm for control. ?Have low estrogen levels. ?Are . You have certain genes that increase your risk. You are sexually active. You take antibiotic medicines. You have a condition that causes your flow of urine to slow down, such as: ?An enlarged prostate, if you are male. ?Blockage in your urethra. ?A kidney stone. ?A nerve condition that affects your bladder control (neurogenic bladder). ?Not getting enough to drink, or not urinating often. You have certain medical conditions, such as: ?Diabetes. ?A weak disease-fighting system (immunesystem). ?Sickle cell disease. ?Gout. ?Spinal cord injury. What are the signs or symptoms? Symptoms of this condition include: Needing to urinate right away (urgency). Frequent urination. This may include small amounts of urine each time you urinate. Pain or burning with urination. Blood in the urine. Urine that smells bad or unusual. Trouble urinating. Cloudy urine. Vaginal discharge, if you are female. Pain in the abdomen or the lower back. You may also have: Vomiting or a decreased appetite. Confusion. Irritability or tiredness. A fever or chills. Diarrhea. The first symptom in older adults may be confusion. In some cases, they may not have any symptoms until the infection has worsened. How is this diagnosed? This condition is diagnosed based on your medical history and a physical exam. You may also have other tests, including: Urine tests. Blood tests. Tests for STIs (sexually transmitted infections). If you have had more than one UTI, a cystoscopy or imaging studies may be done to determine the cause of the infections. How is this treated? Treatment for this condition includes: Antibiotic medicine. Pibo-htz-joggjeg medicines to treat discomfort. Drinking enough water to stay hydrated. If you have frequent infections or have other conditions such as a kidney stone, you may need to see a health care provider who specializes in the urinary tract (urologist). In rare cases, urinary tract infections can cause sepsis. Sepsis is a life- threatening condition that occurs when the body responds to an infection. Sepsis is treated in the hospital with IV antibiotics, fluids, and other medicines. Follow these instructions at home: Medicines Take qvdf-qie-leeejda and prescription medicines only as told by your health care provider. If you were prescribed an antibiotic medicine, take it as told by your health care provider. Do notstop using the antibiotic even if you start to feel better. General instructions Make sure you: ?Empty your bladder often and completely. Do not hold urine for long periods of time. ?Empty your bladder after sex. ?Wipe from front to back after urinating or having a bowel movement if you are female. Use each tissue only one time when you wipe. Drink enough fluid to keep your urine pale yellow. Keep all follow-up visits. This is important. Contact a health care provider if: Your symptoms do not get better after 1 2 days. Your symptoms go away and then return. Get help right away if: You have severe pain in your back or your lower abdomen. You have a fever or chills. You have nausea or vomiting. Summary A urinary tract infection (UTI) is an infection of any part of the urinary tract, which includes the kidneys, ureters, bladder, and urethra. Most urinary tract infections are caused by bacteria in your genital area. Treatment for this condition often includes antibiotic medicines. If you were prescribed an antibiotic medicine, take it as told by your health care provider. Do notstop using the antibiotic even if you start to feel better. Keep all follow-up visits. This is important. This information is not intended to replace advice given to you by your health care provider. Make sure you discuss any questions you have with your health care provider. Document Revised: 05/19/2021 Document Reviewed: 05/19/2021 [employer] Patient Education 2022 [employer]. Follow Up Care 08/18/2023 10:05:00 With:Inderjit Adi Address: [address] [place] [phone]- Business (1) When:08/21/2023 11:41:26 Comments:Call the office of your primary care doctor to arrange for follow-up within the above-stated timeframe. Follow-up with your primary care doctor about this ED visit. You should review your labs, imaging, and diagnoses from this ED visit with your primary care physician. If you were prescribed medications you should discuss possible side-effects and drug interactions with your pharmacist. Call 911 or go to the nearest Emergency Department if you develop any new or worsening symptoms. [facility]10-25-2023 Evaluation + Plan note Diagnostic Tests Pending * Vaginitis/Vaginosis, DNA Probe 08/14/23 [facility]09-21-2023 Evaluation note* Encounter Date Diagnosis Assessment Notes Treatment Notes Treatment Clinical Notes Jun, Obesity, Class I, BM I 30-34.9 (ICD-10 - E66.9) Consultation date 07-11-2023, weight (pounds): 182.4Plan is to take a weight centric approach to patient care in the treatment of excess adiposity and patient's weight related comorbidities.-Discus sed the impact of excess adiposity on overall health and increased risk of associated health conditions-Discussed treatment options including lifestyle interventions, such as calorie reduction and physical activity, and use of medications as an adjunct to amplify adherence to healthy behavior change-Discussed benefits, risks and side effects of medication. After informed discussion, patient would like to proceedOrders:-Initia te semaglutide 0.3 mg once weekly through compounding pharmacy. Patient with Medicaid. -Patient had poor response to phentermine in the past and would like to avoid.-Follow up in clinic in 4 to 6 weeksThis note was created with voice recognition software. Please excuse errors in as400 developer. Jun, Dietary surveillance and counseling (ICD-10 - Z71.3) Discussed in detail high-protein, high-fiber, low-fat nutrition plan favoring calorie deficit and lean tissue mass preservation.-Lean protein sources at each meal supplemented with nutrient rich, low calorie density carbohydrates-Focus on consuming calories earlier in the day versus later; breakfast and lunch should be largest meals-Evening meal should be high in protein and low in carbohydrate to maximize lipolysis overnight-Aim for a minimum of 30 g of protein per meal with breakfast, lunch and dinner with total daily intake reaching at least 100 g-If needed, supplement with whey protein powder or premade protein drink low in carbohydrate and low in fat-If hungry between meals, consider protein snack low in carbohydrate and low in fat Jun, Exercise counseling (ICD-10 - Z71.89) Absolute HGS at time of consultation (pounds): 64.4Discussed in detail exercise interventions to promote lean tissue mass preservation during calorie restriction.-In addition to regularly scheduled endurance and resistance exercise, perform bouts of resistance exercise prior to meals using body weight, resistance bands or dumbbells/weights-Fol lowing meals, consider aerobic exercise, such as brisk walking, to improve blood sugars and to mitigate hyperinsulinemia Jun, Dyslipidemia (ICD-10 - E78.5) Low HDL cholesterol, triglycerides and LDL cholesterol borderline elevated Jun, Prediabetes (ICD-10 - R73.09) A1c 5.9% in 2008. Since this time A1c has hovered around 5.5%. This is due to hyperinsulinemia. Jun, Hyperinsulinemia (ICD-10 - E16.1) Insulin increased over time representing insulin resistance. Explained pathophysiology to patient. Jun, Other 63 minutes was spent reviewing patient specific healthcare information, interviewing, counseling, and communicating with the patient, and documenting clinical information. [employer] Other Chigr complaint+Reason for visit Narrative* Reason for Visit Dietary surveillance and counseling Exercise counseling Obesity, Class I, BMI 30-34.9 Prediabetes [facility] Work Phone: Evaluation + Plan note Future Appointments Appointment Date:10/15/2023 02:00:00 PM Scheduled Provider:Star LENOARDO MD Location:[facility] Appointment Type:URO New Patient Diagnostic Tests Pending * PAP [phone] [facility] Future Appointments Appointment Date:04/09/2024 11:30:00 AM Scheduled Provider: Location:[facility] Appointment Type:Urology CALL PAT FT Appointment Date:04/13/2024 09:15:00 AM Scheduled Provider: Location:[facility] Appointment Type:Urology FT [facility] Evaluation noteNo [facility] [employer] Other Evaluation note* Diagnosis Onset Date Resolution Status Dietary surveillance and counseling acute Exercise counseling acute Obesity, Class I, BMI 30-34.9 acute Prediabetes acute [facility] Work Phone: [facility] general Narrative - Reported* Type Description Date Medical History Cystic acne Medical History Hypertriglyceridmia Medical History Rhinitis Surgical History [place] teeth extraction Hospitalization History See above [facility] [employer] Other Hospital course Narrative No data available for this section [facility] No data available for this section [facility] No data available for this section [facility] Summary Purpose Family History No Family History Records Found Relationship Condition Age at Onset Recorded Date/T katya father High blood cholesterol Unknown Hypertension Unknown grandparent Unknown Not Specified Hypertension Unknown High blood cholesterol Unknown Advance Directives No Advanced Directives Records Found Advance Directive Response Recorded Date/ Time Advance Directives No June 10:46am Advance Directive Response Recorded Date/ Time Advance Directives No June 11:46am Additional Source Comments INFORMATION SOURCE (unrecogn ized section and content) DATE CREATED AUTHOR 10/12/2022 [facility] p[facility] DATE CREATED AUTHOR AUTHOR'S ORGANIZ ATION 02/11/2024 [facility] EPIC DATE CREATED AUTHOR AUTHOR'S ORGANIZ ATION 02/27/2024 [facility] DATE CREATED AUTHOR AUTHOR'S ORGANIZ ATION 04/21/2024 [facility] REASON FOR VISIT (unrecogniz ed section and content) Initial [facility] VoicemailNo In formation Patient Care team informatio n (unrecognized section and content) Team Status: Active Member Role Status Dates Inderjit Joshi MD Primary Care Provider Active Team Status: Inactive Member Role Status Dates Inderjit Joshi MD Primary Care Provider Active Start: December 05, 2023 End: December 05, 2023 Sammy Mike DO Attending Provider Active St art: December 05, 2023 End: December 05, 2023 Personnel Name: Inderjit Joshi MD Address: Address: [address] [place], [place] [address] Goals (unrecognized section and content) Goals may be documented in a n alternate section FOR RECORDS PERTAINING TO PATIENTS WHO ARE OR HAVE BEEN ENROLLED IN A CHEMICAL DEPENDENCY/SUBSTANCEABUSE PROGRAM, SOME INFORMATION MAY BE OMITTED. This clinical summary was aggregated from multiple sources. Caution should be exercised in using it in the provision of clinical care. This summary normalizes information from multiple sources, and as a consequence, information in this document may materially change the coding, format and clinical context of patient data. In addition, data may be omitted in some cases. CLINICAL DECISIONS SHOULD BE BASED ON THE PRIMARY CLINICAL RECORDS. [facility] [employer] [facility]. provides no warranty or guarantee of the accuracy or completeness of information in this document.
[2024-06-10 07:09] LABS: Sex Horm Binding Glob, Serum 40.1 nmol/L (24.6-122.0)
[2024-06-10 08:12] LABS: Progesterone 4.9 ng/mL (.)
[2024-06-12 12:09] LABS: Free Testosterone(Direct) 1.2 pg/mL (0.0-4.2); Testosterone 19 ng/dL (8-60)
[2024-06-15 19:07] LABS: Estrone, Serum 111 pg/mL (27-231)
== END 2024-06-09 12:38 | disposition home or self-care (01) ==
LOC: LAB 12:37
PROVIDERS: PCP Family Medicine; Visit Provider Family Medicine
DX: N95.2 Postmenopausal atrophic vaginitis (principal)
CPT/HCPCS: 36415; 82306; 82533; 82627; 82670; 82679; 84144; 84270; 84402; 84403

== ENCOUNTER 2024-06-25 07:22 | Outpatient (OUT) | payer BC, OTHER, SELFPAY ==
--- OUTSIDE RECORDS SUMMARY | 2024-06-25 07:24 | XMS_ITS | CCD ---
Author Organization [facility] Care Team Providers Care Machine Hamper Maker Name Role Phone DR INDERJIT JOSHI Primary Care Unavailable ADI, DR JANSEN Admitting Unavailable ADI, DR JANSEN Attending Unavailable ADI, DR JANSEN Consulting Unavailable ADI, DR JANSEN Admitting Unavailable ADI, DR JANSEN Attending Unavailable ADI, DR JANSEN Consulting Unavailable ADI, DR JANSEN Primary Care Unavailable Sammy Mike Unavailable NONE, XXXX Primary Care Physician Unavailab Inderjit Teixeira Primary Care Physician [phone] GISELA PORTER Attending Unavailable GISELA PORTER Attending Unavailable JODIE TSAI Attending Unavailable Inderjit Joshi Primary Care Unavailable Sammy Mike Attending Unavailable Sammy Mike Admitting Unavailable Sammy Mkie Admitting Unavailable Inderjit Joshi Primary Care Unavailable [...] mechanism of action (substance) Drug allergy Unknown [facility] Other (6 sources) Sulfonamides (Antibiotic); Translations: [sulfa drugs] Drug allergy Unknown by patient [facility] (1 source) Sulfonamides (Antibiotic) Drug allergy (disorder) [address] [place] [address] Repository Medications Current Medications Medication Drug Class(es) [...] for 30 Days PRN Active estrogens, conjugated (long-term) 0.625 mg/ml vaginal cream (1 source) Estrogen Start: 04-13-2024 Premarin Vaginal 0.625 mg/g cream with applicator See Instructions, 30 gm, Refill(s) 1, Apply pea sized amount to urethra/vagina 3x a week at night x 1 month, then 2x a week for maintainence, [facility], 154, cm, 04/13/24 9:25:00 EDT, Height/Length [...] Range Facility Coding Summary.on 04-14-2024 Coding Summary. MHLBAccm83IFt5yEc+PG hlYWQ+UX6YUOQkN59uyX EotL7jI3ZZHMvWSmaeQU BVUIfSZlTmatYnQZ1wgT NjZXJu IC8+MY7vBDYsEdmxrSMt o7T4tGZ6Z36kfk4bAQdu yJD4WHArApYiecohk2nj fOj2KHtqRaxjIrOq ZVGsnX43UFV8bQ50Aj93 rWXayENxy5ttrVu6WoHg WTEzXEE6oRnzFViqd1Sq GHVvL67aeEHcw3G1 IGNvbGxhcHNlOyBlbXB0 eR3uPYsprwunq8wjhvjf Nfm7dm18lDZvv2A2fRD7 Z5QjiyL4NIGouHIv GxsnlRLIwT7tqmtxt0ez gemfVqUpKPIbPTe3CNt2 OXJyqNwiJrHjHK78NMS9 LWQxnrYuA8NiEPXc vXmhKdO9q9U1Rb3MS0PO QrysH1BCNKUNFHaxdLQ+ NA73ug00M7DnPevuJrs7 BECuSXT0cZT9hZ6s AFXrXYcqv6Y9tLD2F6Eb kmHrxi2wd0vyRNKiQBzg K79ehKPls3U3YBCakHB6 KFPfcQvfYnGidW56 Oyc+KWDluYbss1BnMppt f0szp5wwuRs5RzyyBWZo dfYusEmiORV3r1RiCw8g SUVebXS0lMW1wO4o IyVeGlN8QUfkY272LlXc gWSwHrlkE43sO6TdhAP+ NTBfJgj9LZFnsSooWN0m F3BiJACjxvsgwWCb pLutEI6xSTVcuiojQLLu kP0qTATfR0v9PcKuYcK8 GIgwT2RrMNOuedfdKw07 jJ6mCyDzGfG3IOpj P5NdoeP5EIUsvTYeCWdq JIG4F91aj4H4VBZuVOLm MJA8fNS5hI8ueIylwtzv bGVmdDsgdmVydGlj IXtoVOowE133ZOYzqPpl PkNvZGluZyBEYXRlOiAg MDYvMjUvMjAyNDwvdGQ+ BLVbDGO4rMrsATOr sPGvQZvbUc3sxGypqVxv JJ7zRBGlvcsfDQSqgT6f NJPtiOAzkDfoSK4jEEIo qchvh087OhMjTMI2 CEQbzEEcV7RmkV0kScQz WFDpYJEtV3JayPOiIAvg V689IRzaBzZ1QNKinkUl O5GgKUZhbLzrVxQ1 o0B6Ay5Pw6GkdlhvF5Xi qGYmInInVqvkZUk1F8Pe PjwvdHI+UA28HDOeWT60 VXl3XOC0kSfkQIty XVCkL0UyzK7iDpIeMEHh ZGRkOyc+PHRhYmxlIHdp ZHRoPScxMDAlJyBzdHls UW2xWn1wUMDqNWLm aKosxNRuQkWfu5tvNYPc DEtaEP3rcIzsQ0OzbSI7 SWRgq4z5Rp02E08uU9Rk dXA+VNVhwVQ6dGC9 wK7dKzCzJhE2JRhuX469 LbDpeAQqHtmgu4rah0gq dBf4GpJ3ENRgqkParZyh JIC1t8EiEu46E73w IHdpZHRoPSIxNSUiIHZh fNrhoj5ceK5tGr6+PGNv yFB3gOE6tQ2sPqXaHnB9 AZjyB160EiAfsZMp Dpjyv6yan8gflAr7LrMu YAXefzLoyTdbVIO8p7Sk Tl94Y4JoiAeso7NyCzi3 vp42cMHax7F6eWF7 X8NhIYXjsfdnfUVcpDwe RX1rMWGqqnzbVARsrI7d YQZaX0r9QdKvRiM8ADiv W6MyepM9BPKsyNBl UMVpuKMSaB3fnfrvr1nx hsobWrSuLDNxZYh7RNm4 KRSwlXkjAdUiMSH1BbX1 LAE6lODztM1xnTjr sesrzC8qTre+MQG4dEFi xJAKXM8tBcomkOF+PHRk JJS7kMshSTdgWVLxuH0r KZEeL2n7NmRaQvB1 LBqfJ4UuycF6XJNxjXWp BOIvhUBXbO4slelon4fu kuzeWvAhYKVsYHd1OId8 LWFsaWduOiBsZWZ0 OsU7MUS2mKHgcK5acCtx hmbpfD2iNlj+QmlydGgg AGB3IGz4H4PoQhf8IDEg qZuxWS5ajPOyCExx Hj2epMwhgMbcZG4jMOSj fpggi589YnKay7kpKGLb uVNtUFgyOBQ8Q52rb3U7 EBQfXDYiBWC0nNF5 jQ5oeZesawrbcMSodNbe biLzkOutFTboTWkxL919 AHNbkCqmOjRfTVi0O3Sa Bto2BYScvArtZL4v lJPjAJpmXk1doEjnbWnd HE7xKMLqewoil108EmKt k4hmAXXcqJMnKXesGPY8 W59ya4K7JWRpYBAw RAX7dSA7vI7mpIujrtwi bGVmdDsgdmVydGljYWwt ZTvpN008LPWclLagVzCw pMu0Z6QkDjo5UGFc jScaFS9eqCRoMRyhFz9x qIoicOwyCC0wADImunfb k279ZeVbu3hyVMOwdKQj RJzgCNL3M12ko8H8 LMHnKAQxVRN6oDJ1wK6x bGlnbjogbGVmdDsgdmVy cMjrGUfbRErbC058QBBy cDsnPlBhdGllbnQg TMklWVe5S8NrFfldmZW+ DY21EFNkZB21fDVkrBHz r5bsvIt7TfSuLUIvTPR2 xDalGKoil0TzBOZb O92acSJez9B4NGKkjMjb dCDkUpSotAR0oV5aGPym squat6akfbryLmxsb8od nz12lK42F93pRJmt ZHRoPSIzMCUiIHZhbGln vo1uwB8wRx6+PGNvbCB3 yLR1uZ6aLTSgVcN4DAcb T881TnMluSYdJwel k4ohl4gacAs6AhW0QEZv qxWkkYbvNUC0b2LpBp97 H20eZLsjALGfFERvLKQp ORMtcNlpbc3kaZ8g Ii8+QBGykHR2uEX6pM5w JiAjIeW0TMhcX836SgMb xEEhGbekU10wF2NsoDW+ ONWgFyv1XCVxgOpb KL5rvXOrDAadIc6xQCY8 SyQsVnUpUThzE3QeEYMu aqepjdmzjJL0ZSAsVDMd lA83Ds2uqFmyKQQe nBXCzF5zixfzx9zrypxq HkVbSLGqYPd3CUo5LMYp qJzwYsMsQKK6EqT8TDK0 yDRvtF6uwBvbejmy lO4xZ6QbYKZsdztzZm30 wA2bNxHhOpB3TWvvJdf+ L2CBO0eYSBAKGDOOMbYX QTwvdGQ+PHRkIHN0 nExgAZrrXXOrfO1rRHIb K0w6UsReBeB5ZXhmE4Es XHYuyjprGs02xV2cNiXe SdF1FGewB2AlklI2 PUIxsMYnQOueENM0W32b r4X4AEWtIPXoIRV6sRR8 aP5lyYrjgqjqjCYfiXpv dmVydGljYWwtYWxp Z512WYYtyLrcHxG8KiQy UqS2GBu3M2KsVmg5IABj fQdmRM2vsGVsHSlgTs8e nSniaGnjEK0oXUEg bzzhVYQwfS3fMFNhwRKn oPezZR5iWIYusiotf132 NaOwYOP3UCIbaEZvR6Go iO9iNgQfTUExPCPo S1LviIVuSDshI567CHjo IeY9LRNigxKsD8WdBOZk oPkwTuB4v6F5Ij4jSVMH ZWFyczwvdGQ+PHRk RQB9iDkhDWaaOUXqeI2e DDUaR4m4XoFqVkO6KTlz D8FiMBWklbqlHi74nB8k CxIrHhU2QVooJ5Rs iuF2WXIlbKHcXLorVNV9 P07ji0F1TOQfPCVtTQZ2 vVE5vG4tsEjwimhmtEPz dDsgdmVydGljYWwt POzjX342YRJueIvrIsAb bWFsZTwvdGQ+PHRkIHN0 dFfuJEwaPMNkgQ2sUHGy G9d3EvQmJiJ2JSvj P8SaJAQklrnzBv61pE2g JiQmAiX4GEguL6GcjyX6 KAFwdWGlXHlePSQ2I46b s9S6DZCdNVSkDAR9 mOX9hH8vcHvyneqmaUVu dDsgdmVydGljYWwtYWxp H693YLHbdCfaHn36jPSm oNetkwK3A2RcKlwo dHI+EX81QJUcUK38jIDv cHUqd6vkrYy5YjJoKLUw JGI3aMjwHAayi2JfPTCx Z59mqEMru1E4PINm gUlftWHuXeJzfLG4pS3w NXjqjbihh5ctldviGnta r6vfuz70zO11T45zFIdy ZHRoPSIzMCUiIHZh gKtdtn3aqA3rWh4+PGNv sIS0fUW5wC8qTuDwJoO4 ESehJ891FeTzlMCgVgak p0ogm6ttwIs5AlJn QIRameXhsGgqLNO9e0Zf Xn07G04aBIsdSAEeUHJw PLDlAGArdSupwf4ynR5y Ii8+ON5dy1bijp45 eX63dGH+MKKwZSU8sIip GNhxYUPygX6bBQrsMyO8 UNKvDrAonI87zGMoHYfu Sy7yhCifeXvwHI6o UJGtwsrxf548EzBnd7dd ERMljSXqMSobMWT6U51q j0V9UVAvKUHfTLQ6sHV3 cF7vyPngohbbuYUl dDsgdmVydGljYWwtYWxp E471GXGmcWneUjJakOXq G7vflfDNUN2lOmhpjUW+ WJTkTAR6zFqgQEph DKYlcQ6pESTnS0e2PnUb ZwY3NWonV3ZtjbE5NFOd fIOwFRYslOAVsE6qbcra j0jmlwomDcHxMXUz YVg4XPq0FJYxaIjcKgOm RED0MaC7EJP6oGSahL5f gAuhzvjreW7rQhu+RklO OjwvdGQ+PHRkIHN0 mEetWSlsLPNqkG3xISNd P7a5IvYgJyC5TXznK0Yk oaN8SNGyoMAgJMVxaLSO qT7gzzlbx9shpiia RbLvEXZfMGn7ZRs4YRDg fMpaQcQpIUY4ZyY2RFQ8 pZHwjZ4tfXfrvtxtaB8r Oyc+TVJOOjwvdGQ+ KPSrHES0nAnlQOnkHFGk fH0uOCNdN2c6VjVhFsB4 GWvsE1XjlfW4VOHudSFi OLQdjQHYoK5fkevc m2hfgamyDwTnMCVkYHt3 KRs6YMHyzOkgAcNeSSP0 XrB0OEX7jKZarR4bnUux ulbbuG8uRhu+UGF5 QOW7ZG26JW87N4PyGapr dGFibGU+PHRhYmxlIHdp ZHRoPScxMDAlJyBzdHls VJ8vUv9rLOTiODZa bGxhcHNlOiBjb (more content not included)... Normal [facility] Consent for Procedure/Surger yon 04-13-2024 Consent for Procedure/Surgery [id number] 2#1.00TIFF Normal [facility] Consent for Treatmenton 03-22 Consent for Treatment [id number] #1.00TIFF Normal [facility] Inpatient Patient Summaryon 04-13-2024 Inpatient Patient Summary [address] [address] Clinical Summary Person Information Name: MEREDITH CHAHAL Age: 33 Years : 1990 Sex: Female PCP: Inderjit Joshi MD Marital Status: Race: White Ethnicity: Non- or Language: Estonian Visit Id: Visit Reason: GROSS HEMATURIA Speciality: Acuity: Enc Type: Outpatient Med Service: Surgery Arrival: 04/13/2024 08:42:19 Discharge: Dispo Type: Address: [address] [place] [address] DR THURMAN MD [id number] Provider Notes: Diagnosis: Gross hematuria; Intrinsic sphincter [...] Information: EU - Cystoscopy Discharge Instructions (CUSTOM) [facility] IntraOperative Documentson 0 04-13-2024 IntraOperative Documents [id number] 4#1.00TIFF [facility] Main OR Intraoperative Recor don 04-13-2024 Main OR Intraoperative Record IntraOp Document Type FTURO Summary Primary Physician: Elissa Mejia MD Finalized Date/Time: 04/13/24 09:54:15 Pt. Name: MEREDITH CHAHAL/Sex: 1990 Female Med Rec #: [id number] Physician: Elissa Mejia MD Financial #: [id number] Pt. Type: O Room/Bed: / Admit/Disch: 04/13/24 08:42:19 - Institution: Case Times FTURO Entry 1 Patient Times In Room 04/13/24 09:41:00 Out Room 04/13/24 09:54:00 Procedure Times Start 04/13/24 09:43:00 Stop 04/13/24 09:49:00 Anesthesia Times Last Modified By: Liliana Monsivais 04/13/24 09:54:03 Case Attendance FTURO Entry 1 Entry 2 Entry 3 Case Attendee Roberto JOSHI, Liliana Boss ORTHOPEDIC TECHNICIANDior Role Performed Surgeon - Primary Respiratory Scientist - Primary Scrub - Primary Time In [...] mL Outcomes Met? Yes Last Modified By: Liliana Monsivais 04/13/24 09:43:19 Post-Care Text: The patient [...] 04/13/24 09:54 Liliana Monsivais 04/13/24 09:54 Normal [facility] Main OR Preoperative Recordo n 04-13-2024 Main OR Preoperative Record Holding Area Document Type FTURO Summary Primary Physician: Elissa Mejia MD Finalized Date/Time: 04/13/24 09:42:06 Pt. Name: MEREDITH CHAHAL.O.B./Sex: 1990 Female Med Rec #: [id number] Physician: Elissa Mejia MD Financial #: [id number] Pt. Type: O Room/Bed: / Admit/Disch: 04/13/24 [...] Complaints of Pain: No Skin Integrity Intact, [place], Warm, & Dry Vitals - EU Blood Pressure 114/75 Pulse 91 bpm Respirations 18 br/min SPO2 RN Reviewed Yes Last Modified By: Liliana Monsivais 04/13/24 09:42:04 Finalized By: Liliana Monsivais Document Signatures Signed By: Abigail Santillan LPN 04/13/24 09:22 Liliana Monsivais 04/13/24 09:42 Normal [facility] Operative Reporton Operative Report Patient: MEREDITH CHAHAL Age: 33 years Sex: Female : 1990 Associated Diagnoses: None Author: Elissa Mejia MD Procedure Operative Information Details: Date/ Time: 04/13/2024 09:57:00. Pre-Op Dx: Gross Hematuria - R31.0. Post-Op Dx: Atrophic vaginitis (OZR17-KU N95.2, Working, Medical), Gross hematuria (TOL20-DQ R31.0, Discharge, Medical). Anesthesia Type: Local. Procedure: [...] regarding atrophic vaginitis and urinary leakage. Normal [facility] Comment on above: Result Comment: Elec tronically Signed By: Elissa Mejia MD\.br\Date and Time Signed: 04/13/24 09:59 EDT Outpatient Surgery Discharge Instructionon 04-13-2024 Outpatient Surgery Discharge Instruction [id number] 6#1.00TIFF Normal [facility] Outpatient Surgery Discharge Instruction [place] [id number] Patient Discharge Instructions PERSON INFORMATION Name: MEREDITH CHAAHL Date of : 1990 Current Date: 04/13/2024 [...] Date You may receive a survey from [employer] asking you to rate your care experience. Your feedback is important and will help us understand what we do well and how we can improve the quality of care we provide to you, your loved ones and our community. It?s an honor to serve you. Thank you for choosing [facility] Normal [facility] Progress Note-Physicianon Progress Note-Physician Patient: MEREDITH CHAHAL [...] 2x a week for maintainence, [id number], 154, cm, 04/13/24 9:25:00 EDT, Height/Length Dosing, 76, kg, 04/13/24 9:25:00 EDT, Weight Dosing Impression and Plan Assessment and Plan: Diagnosis: Atrophic vaginitis (ACV36-RW N95.2, Working, Medical), Intrinsic sphincter deficiency (ISD) (MHB08-OY N36.42, Discharge, Medical), Stress incontinence, female (RDG47-AB N39.3, Discharge, Medical). 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 [facility] Comment on above: Result Comment: Elec tronically Signed By: Roberto JOSHI, Elissa Rosales.br\Date and Time Signed: 04/13/24 10:05 EDT Insurance Correspondenceon 0 04-01-2024 Insurance Correspondence [id number] 9#1.00TIFF [facility] Formson 03-30-2024 Forms [id number]# 1.00TIFF [facility] Physician Referralon 024 Physician Referral [id number] 8#1.00TIFF [facility] Screenson 03-30-2024 Screens [id number] 7#1.00TIFF Normal [facility] Ambulatory Visit Summaryon 0 03-27-2024 Ambulatory [...] including vitamins, herbs, eye drops, creams, and ljib-ozq-fvbkysg medicines. ? Any problems you or family [...] tells you to take them. ? Taking nqnq-jqu-aibrwix medicines, vitamins, herbs, and supplements. General instructions [...] (local anest (more content not included)... Normal [facility] Patient Educationon 03-27-20 Patient Education Obstetrics and [...] provider. Document Revised: 02/15/2022 Document Reviewed: 02/15/2022 [employer] Patient Education ? 2022 [employer] Urology Injection Treatments for Urinary Incontinence [...] including vitamins, herbs, eye drops, creams, and nqoj-wgi-ypfwoln medicines. ? Any problems you or family [...] th (more content not included)... 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 Normal [facility] Comment on above: Result Comment: Elec tronically Signed By: Roberto JOSHI, Elissa White\.br\Date and Time Signed: 03/27/24 09:46 EDT\.br\Electronically Co-Signed By: Ashlee Ramon\.br\Date and Time Co-Signed: 03/27/24 09:34 EDT PAP [phone] 09-05-2023 Cytology report Cyto stain Doc (Cvx/Vag) Note Invalid Interpretation Code [facility] Comment on above: Result Comment: TEST S RESULT FLAG UNITS REF RANGE LAB Clinician Provided Cytology Information Source.............Endocervix No. of containers..01 ThinPrep Vial DIAGNOSIS: 01 NEGATIVE FOR INTRAEPITHELIAL LESION OR MALIGNANCY. Specimen adequacy: 01 Satisfactory for evaluation. Endocervical and/or squamous metaplastic cells (endocervical component) are present. Performed by: Anastasia Vaughn, Hydraulic Boom Operator (ASCP) . 01 Note: Note 01 The [...] <-Panic Low,>-Panic High,A-Abnormal,AA-Critical Abnormal Performed at: [address] [place] [address] Itzel Kovacs MD, Performed By: #### 1 [id number] #### [facility] [address] [place] [address] HPV 16+18+31+33+35+39+45+ 51+52+56+58+59+66+68 DNA Probe+sig amp Ql (Cvx) Negative Invalid Interpretation Code Negative [facility] Comment on above: Result Comment: This nucleic acid amplification test detects fourteen high-risk HPV types (16,18,31,33,35,39,45,51,52,56,58,59,66,68) without differentiation. Performed at: [facility] [address] [id number] MD Fermín Robbins Performed at: =G [address] [id number] MD Fermín Robbins Performed By: #### 1 [id number] #### [facility] [address] [place] [address] PAP [id number] 08-30-2023 Collection Technique BRUSH-SPATULA Normal F [facility] Comment on above: Performed By: #### 1 [id number] #### [facility] [address] [place] [address] Gynecological Body Site ENDOCERVIX Normal [facility] Comment on above: Performed By: #### 1 [id number] #### [facility] [address] [place] [address] Physician Orderon 08-30-2023 Physician Order [id number] #1.00TIFF Normal [facility] ED Note-Physicianon 08-24-20 ED Note-Physician Basic Information [...] over a week ago. Patient saw her TWX OPERATOR who diagnosed her with a UTI as [...] was confirmed by urine dipstick by her TWX OPERATOR, culture was not performed. Patient reports she has not been able to follow-up with her TWX OPERATOR over the weekend. Patient ports being generally [...] with her PCP as well as her TWX OPERATOR. Return precautions to ED were discussed. Patient [...] Joshi In 3 days 08/21/2023 EDT [address] [facility] [place] [address] [place] [address]- Business (1) Additional Instructions: Call the office [...] Patient seen and evaluated by the physician health education assistant. Attending physician was present in the emergency department and supervised care. This visit was performed by both the physician and an APC. I performed all as (more content not included)... Normal [facility] Comment on above: Result Comment: Elec tronically Signed By: Ryan Dorsey PA-C\.br\Date and Time Signed: 08/18/23 11:45 EDT\.br\Electronically Co-Signed By: Nicholas Thurston MD\.br\Date and Time Co-Signed: 08/24/23 08:18 EDT Chlamydia/Gonococcus, NAAon 08-21-2023 C. trachomatis rRNA CLAUDIA+probe Ql (Unsp spec) Negative Invalid Interpretation Code Negative [facility] Comment on above: Performed By: #### 1 [id number] #### [facility] [address] [place] [address] N. gonorrhoeae rRNA CLAUDIA+probe Ql (Unsp spec) Negative Invalid Interpretation Code Negative [facility] Comment on above: Result Comment: Perf ormed at: =[facility] [address] Roman [id number] MD Bendre Itzel Performed By: #### 1 [id number] #### [facility] [address] [place] [address] C Urineon 08-20-2023 Bacteria identified Cx Nom [...] Locations R1: This test was performed at: [facility], [address] [place] [address], [address]- , , Normal [facility] Comment on above: Performed By: #### 2 [id number] ####[facility] [address] [place] [address] Auto Diffon 08-18-2023 Basophils/100 WBC (Bld) 0.4 % Normal 0.0-2.0 [facility] Comment on above: Order Comment: Order Added by Discern Expert. Performed By: #### 1 [id number] #### [facility] [address] [place] [address] Basophils/Leukocytes Auto (Bld) [Pure # fraction] 0.0 E9/L Normal 0.0-0.2 [facility] Comment on above: Order Comment: Order Added by Discern Expert. Performed By: #### 1 [id number] #### [facility] [address] [place] [address] Eosinophils/100 WBC (Bld) 1.9 % Normal 0.0-8.0 [facility] Comment on above: Order Comment: Order Added by Discern Expert. Performed By: #### 1 [id number] #### [facility] [address] [place] [address] Eosinophils/Leukocyte s Auto (Bld) [Pure # fraction] 0.2 E9/L Normal 0.0-0.5 [facility] Comment on above: Order Comment: Order Added by Discern Expert. Performed By: #### 1 [id number] #### [facility] [address] [place] [address] Lymphocytes/100 WBC (Bld) 21.1 % Normal 14.0-50.0 [facility] Comment on above: Order Comment: Order Added by Discern Expert. Performed By: #### 1 [id number] #### [facility] [address] [place] [address] Lymphocytes/Leukocyte s Auto (Bld) [Pure # fraction] 1.8 E9/L Normal 1.0-4.0 [facility] Comment on above: Order Comment: Order Added by Discern Expert. Performed By: #### 1 [id number] #### [facility] [address] [place] [address] Monocytes/100 WBC (Bld) 5.7 % Normal 4.0-14.0 [facility] Comment on above: Order Comment: Order Added by Discern Expert. Performed By: #### 1 [id number] #### [facility] [address] [place] [address] Monocytes/Leukocytes Auto (Bld) [Pure # fraction] 0.5 E9/L Normal 0.2-1.0 [facility] Comment on above: Order Comment: Order Added by Discern Expert. Performed By: #### 1 [id number] #### [facility] [address] [place] [address] Neutrophils/100 WBC (Bld) 70.9 % Normal 36.0-75.0 [facility] Comment on above: Order Comment: Order Added by Discern Expert. Performed By: #### 1 [id number] #### [facility] [address] [place] [address] Neutrophils/Leukocyte s Auto (Bld) [Pure # fraction] 6.2 E9/L Normal 2.0-7.5 [facility] Comment on above: Order Comment: Order Added by Discern Expert. Performed By: #### 1 [id number] #### [facility] [address] [place] [address] BMPon 08-18-2023 Creatinine [Mass/Vol] 0.7 mg/dL Normal 0.5-1.3 [facility] Comment on above: Performed By: #### 1 [id number] #### [facility] [address] [place] [address] Urea nitrogen [Mass/Vol] 18 mg/dL Normal 5-21 [facility] Comment on above: Performed By: #### 1 [id number] #### [facility] [address] [place] [address] Urea nitrogen/Creatinine [Mass ratio] 26 No Units High 10-20 [facility] Comment on above: Performed By: #### 1 [id number] #### [facility] [address] [place] [address] Anion gap [Moles/Vol] 8 mmol/L Normal 6-16 [facility] Comment on above: Performed By: #### 1 [id number] #### [facility] [address] [place] [address] Calcium [Mass/Vol] 9.2 mg/dL Normal 8.9-11.1 [facility] Comment on above: Performed By: #### 1 [id number] #### [facility] [address] [place] [address] Chloride [Moles/Vol] 107 mmol/L Normal 101-111 [facility] Comment on above: Performed By: #### 1 [id number] #### [facility] [address] [place] [address] CO2 [Moles/Vol] 25 mmol/L Normal 21-31 [facility] Comment on above: Performed By: #### 1 [id number] #### [facility] [address] [place] [address] Glucose [Mass/Vol] 98 mg/dL Normal 55-199 [facility] Comment on above: Result Comment: If t his glucose result represents a fasting glucose, interpretation should refer to the following reference range: 55-99 mg/dL Performed By: #### 1 [id number] #### [facility] [address] [place] [address] Potassium [Moles/Vol] 4.0 mmol/L Normal 3.5-5.3 [facility] Comment on above: Performed By: #### 1 [id number] #### [facility] [address] [place] [address] Sodium [Moles/Vol] 136 mmol/L Normal 135-145 [facility] Comment on above: Performed By: #### 1 [id number] #### [facility] [address] [place] [address] CBC w/ Auto Diffon Erythrocyte distribution width (RBC) [Ratio] 13.0 % Normal 10.9-14.2 [facility] Comment on above: Performed By: #### 1 [id number] #### [facility] [address] [place] [address] Hematocrit (Bld) [Volume fraction] 41.8 % Normal 34.0-46.0 [facility] Comment on above: Performed By: #### 1 [id number] #### [facility] [address] [place] [address] Hemoglobin (Bld) [Mass/Vol] 14.2 g/dL Normal 12.0-16.0 [facility] Comment on above: Performed By: #### 1 [id number] #### [facility] [address] [place] [address] MCH (RBC) [Entitic mass] 27.5 pg Normal 27.0-34.0 [facility] Comment on above: Performed By: #### 1 [id number] #### [facility] [address] [place] [address] MCHC (RBC) [Mass/Vol] 33.9 g/dL Normal 31.4-36.0 [facility] Comment on above: Performed By: #### 1 [id number] #### [facility] [address] [place] [address] MCV (RBC) [Entitic vol] 81.0 fL Normal 80.0-100.0 [facility] Comment on above: Performed By: #### 1 [id number] #### [facility] [address] [place] [address] Platelet mean volume (Bld) [Entitic vol] 8.7 fL Normal 6.4-10.8 [facility] Comment on above: Performed By: #### 1 [id number] #### [facility] [address] [place] [address] Platelets (Bld) [#/Vol] 346.0 E9/L Normal 150.0-500.0 [facility] Comment on above: Performed By: #### 1 [id number] #### [facility] [address] [place] [address] RBC (Bld) [#/Vol] 5.2 E12/L Normal 4.3-5.9 [facility] Comment on above: Performed By: #### 1 [id number] #### [facility] [address] [place] [address] WBC corrected for nucl RBC Auto (Bld) [#/Vol] 8.7 E9/L Normal 4.0-11.0 [facility] Comment on above: Performed By: #### 1 [id number] #### [facility] [address] [place] [address] CHEMISTRYOrdered By: SYSTEM SYSTEM on 08-18-2023 Albumin [...] 116 mL/min/1.73 m2 Normal >=59mL/min/1. 73 m2 [facility] Chem S Comment on above: Interpretive Data: [...] 7.9 g/dL High 6.0 - 7.8 gm/dL [facility] Remisol Sodium [Moles/Vol] 136 mmol/L Normal 135 - 145 mmol/L [facility] Remisol Urea nitrogen [Mass/Vol] 18 mg/dL Normal 5 - 21 mg/dL [facility] Remisol Urea nitrogen/Creatinine [Mass ratio] 26 mg/mg High 10 - 20 [facility] Remisol Consent for Treatmenton 07-22 Consent for Treatment [id number] #1.00TIFF Normal [facility] Discharge Instructionson Discharge Instructions [id number]#1.00TIFF Normal [facility] ED Clinical Summaryon 2022 ED Clinical Summary [address] [address] ED Clinical Summary Person Information Name: MEREDITH CHAHAL/[facility] Age: 33 Years : 1990 Sex: Female Language: Estonian PCP: Inderjit Joshi MD Marital Status: Visit [...] 08/18/2023 11:46:58 08/18/2023 11:46:58 08/18/2023 11:46:58 ADDRESS: [address] [place] [address] DR THURMAN MD [id number] PHYS DOC NOTES: MEDICAL INFORMATION: Prescriptions Given: New Medications Printed Prescriptions cephalexin (cephalexin 500 mg Cap) 1 Capsules By Mouth every 12 hours for 7 Days. Refills: 0. PATIENT EDUCATION INFORMATION: Instructions: Urinary Tract Infection, Adult Follow up: With: Address: When: Inderjit Joshi [facility], [place] [address] Business (1) In 3 days [...] or worsening symptoms. DIAGNOSIS: UTI symptoms Normal [facility] ED Patient Education Noteon 08-18-2023 ED Patient [...] this condition includes: ? Antibiotic medicine. ? Agjk-exm-clxhgsf medicines to treat discomfort. ? Drinking enough [...] these instructions at home: Medicines ? Take wxlr-lim-bwhlzwn and prescription medicines only as told by [...] Document Revie (more content not included)... Normal [facility] ED Patient Summaryon 023 ED Patient Summary [place] [id number] Patient Discharge Instructions Person Information Name: MEREDITH CHAHAL Age: 33 Years Arrival Date: 08/18/2023 10:03:40 Discharge Diagnosis: UTI symptoms Primary Care Physician: Inderjit Joshi MD Provider Information Primary Provider: [employer]er:Ryan Dorsey PA-C The exam and treatment you received in the Emergency Department were for an urgent problem and are not intended as complete care. It is important that you follow up with a doctor, nurse practitioner, or physician?s health education assistant for ongoing care. If your symptoms become worse or you do not improve as expected and you are unable to reach your usual health care provider, you should return to the Emergency Department. We are available 24 hours a day. MEREDITH CHAHAL has been given the following list of patient education materials, prescriptions and follow-up instructions: Follow-up Instructions: With: Address: When: Inderjit Joshi [address] [place] [address], [address] [place], [place] [id number] Business (1) In 3 days 08/21/2023 Comments: [...] opioids can be used to help relieve lmioocwt-jk-axlafx pain and are often prescribed following a [...] unused prescription (more content not included)... Normal [facility] HEMATOLOGYOrdered By: SYSTEM SYSTEM on 08-18-2023 Basophils/100 [...] Bilirubin.indirect [Mass or moles/Vol] UTC Abnormal 0.1-0.9 [facility] Comment on above: Result Comment: Resu lt verified by Discern Rule. Performed result UTC (Unable to Calculate) was sent as an Alpha code due the inability to calculate a valid numeric value. Performed By: #### 1 [id number] #### [facility] [address] [place] [address] Albumin [Mass/Vol] 4.6 g/dL Normal 3.3-5.0 [facility] Comment on above: Performed By: #### 1 [id number] #### [facility] [address] [place] [address] Albumin/Globulin (S) [Mass conc ratio] 1.4 Normal 1.1-2.2 [facility] Comment on above: Performed By: #### 1 [id number] #### [facility] [address] [place] [address] ALP [Catalytic activity/Vol] 65 Int._Unit/L Normal 21-98 [facility] Comment on above: Performed By: #### 1 [id number] #### [facility] [address] [place] [address] ALT No additional P-5'-P [Catalytic activity/Vol] 21 Int._Unit/L Normal 6-46 [facility] Comment on above: Performed By: #### 1 [id number] #### [facility] [address] [place] [address] AST [Catalytic activity/Vol] 24 Int._Unit/L Normal 5-43 [facility] Comment on above: Performed By: #### 1 [id number] #### [facility] [address] [place] [address] Bilirubin [Mass/Vol] 0.2 mg/dL Normal 0.0-1.1 [facility] Comment on above: Performed By: #### 1 [id number] #### [facility] [address] [place] [address] Globulin (S) [Mass/Vol] 3.3 g/dL Normal 1.4-4.0 [facility] Comment on above: Performed By: #### 1 [id number] #### [facility] [address] [place] [address] Protein [Mass/Vol] 7.9 g/dL High 6.0-7.8 [facility] Comment on above: Performed By: #### 1 [id number] #### [facility] [address] [place] [address] Bilirubin.direct [Mass/Vol] mg/dL Normal 0.1-0.4 [facility] Comment on above: Performed By: #### 1 [id number] #### [facility] [address] [place] [address] Lipase Levelon 08-18-2023 Lipase [Catalytic activity/Vol] 40 U/L Normal 13-58 [facility] Comment on above: Performed By: #### 1 [id number] #### [facility] [address] [place] [address] UA With Cult Reflexon 2022 Bacteria LM Ql (Urine sed) TRACE Normal Trace [facility] Comment on above: Performed By: #### 1 [id number] #### [facility] [address] [place] [address] Bilirubin Ql (U) Negative Normal Negative [facility] Comment on above: Performed By: #### 1 [id number] #### [facility] [address] [place] [address] Clarity (U) CLEAR Normal Clear [facility] Comment on above: Performed By: #### 1 [id number] #### [facility] [address] [place] [address] Color (U) YELLOW Normal Yellow [facility] Comment on above: Performed By: #### 1 [id number] #### [facility] [address] [place] [address] Epithelial cells.squamous LM.HPF (Urine sed) [#/Area] 5-8 Normal 0-2 [facility] Comment on above: Performed By: #### 1 [id number] #### [facility] [address] [place] [address] Glucose Test strip (U) [Mass/Vol] Negative Normal Negative [facility] Comment on above: Performed By: #### 1 [id number] #### [facility] [address] [place] [address] Hemoglobin Ql (U) Negative Normal Negative [facility] Comment on above: Performed By: #### 1 [id number] #### [facility] [address] [place] [address] Ketones (U) [Mass/Vol] Negative Normal Negative [facility] Comment on above: Performed By: #### 1 [id number] #### [facility] [address] [place] [address] [place].plasma/Lithiu m.RBC (Bld) [Mass ratio] 0-3 Normal 0-3 [facility] Comment on above: Performed By: #### 1 [id number] #### [facility] [address] [place] [address] Mucus Ql (Urine sed) 2+ Normal [facility] Comment on above: Performed By: #### 1 [id number] #### [facility] [address] [place] [address] Nitrite Ql (U) Negative Normal Negative [facility] Comment on above: Performed By: #### 1 [id number] #### [facility] [address] [place] [address] pH (U) 5.5 [pH] Invalid Interpretation Code 5.0-9.0 [facility] Comment on above: Performed By: #### 1 [id number] #### [facility] [address] [place] [address] Protein (U) [Mass/Vol] Negative Normal Negative [facility] Comment on above: Performed By: #### 1 [id number] #### [facility] [address] [place] [address] Specific gravity (U) [Rel density] 1.025 Invalid Interpretation Code 1.005-1.030 [facility] Comment on above: Performed By: #### 1 [id number] #### [facility] [address] [place] [address] Type of Urine collection method Clean Catch Normal [facility] Comment on above: Performed By: #### 1 [id number] #### [facility] [address] [place] [address] Urobilinogen Qn (U) 0.2 {Carl'U}/dL Normal 0.0-1.0 [facility] Comment on above: Performed By: #### 1 [id number] #### [facility] [address] [place] [address] WBC Auto Ql (U) Negative Normal Negative [facility] Comment on above: Performed By: #### 1 [id number] #### [facility] [address] [place] [address] WBC LM.HPF (Urine sed) [#/Area] 0-5 Normal 0-5 [facility] Comment on above: Performed By: #### 1 [id number] #### [facility] [address] [place] [address] URINALYSISOrdered By: Adrian Lagos on 08-18-2023 Bacteria [...] AM) Normal Negative [facility] UA Auto SS [place].plasma/Lithiu m.RBC (Bld) [Mass ratio] 0-3 /HPF Normal [...] Desc Clean Catch (08/18/23 10:48 AM) Normal [facility] UA Auto SS Urobilinogen Qn (U) 0.8779511 {Carl'U}/dL Normal 0.0 - 1.0 EU/dL FT UA Auto SS WBC Auto Ql (U) Negative (08/18/23 10:48 AM) Normal Negative [facility] UA Auto SS WBC LM.HPF (Urine sed) [#/Area] 0-5 /HPF Normal 0-5/HPF [facility] UA Auto SS eGFRon 08-18-2023 GFR/1.73 sq M.predicted among non-blacks MDRD (S/P/Bld) [Vol rate/Area] 116 mL/min/1.73 m2 Normal >=59 [facility] Comment on above: Order Comment: Order added by Discern Expert. Result Comment: Bank Cashier rosalinda kidney disease could be indicated at eGFR's of less than 60 mL/min/1.73m2. Kidney failure is indicated at less than 15 mL/min/1.73m2. Performed By: #### 1 [id number] #### [facility] [address] [place] [address] Vaginitis/Vaginosis, DNA Pro beon 08-16-2023 Amy sp rRNA Probe Ql (Vag fld) Negative Invalid Interpretation Code Negative [facility] Comment on above: Performed By: #### 3 [id number] ####[facility] [address] [place] [address] G. vaginalis rRNA Probe Ql (Genital specimen) Negative Invalid Interpretation Code Negative [facility] Comment on above: Performed By: #### 3 [id number] ####[facility] [address] [place] [address] T. vaginalis rRNA Probe Ql (Genital specimen) Negative Invalid Interpretation Code Negative [facility] Comment on above: Result Comment: Perf ormed at: [facility] [address] [id number] PhD José Miguel Naranjo Performed By: #### 3 [id number] ####[facility] [address] [place] [address] Physician Orderon 08-14-2023 Physician Order [id number]# 1.00TIFF Normal [facility] Covid-19 PCR (CVDTBH)on 09-20 SARS-CoV-2 (COVID-19) RNA CLAUDIA+probe Ql (Unsp spec) Not detected Normal NOT DETECTED [facility] Comment on above: Result Comment: This test is not yet approved or cleared by the [place] FDA. When there are no FDA-approved or cleared tests available, and other criteria are met, FDA can make tests available under an emergency access mechanism called an Emergency Use Authorization (EUA). The EUA for this test is supported by the Cooking Casing And Drying Supervisor of Health and Human Service's (HHS's) declaration [...] SARS-CoV-2. Performed By: #### C VDTB #### [facility] [address] [place] [address] Dr. Salma Ro INFLUENZA A [facility] Normal [facility] Comment on above: Result Comment: Nega tive for Flu B protein antigen. Infection due to Flu B cannot be ruled out. Flu B antigen in the sample may be below the detection limit of the test. Performed By: #### I NFLUAB #### [facility] [address] [place] [address] Dr. Salma Ro INFLUENZA A AG Positive Abnormal NEGATIVE SEE COMMENT [facility] Comment on above: Performed By: #### I NFLUAB #### [facility] [address] [place] [address] Dr. Salma Ro INFLUENZA B AG Negative Normal NEGATIVE SEE COMMENT [facility] Comment on above: Performed By: #### I NFLUAB #### [facility] [address] [place] [address] Dr. Salma Ro INFLUPOS SEE BELOW Normal [facility] Comment on above: Result Comment: NOTE : Live attenuated influenzae vaccine viruses can cause a positive result for a rapid influenza diagnostic test if administered up to 7 days prior to rapid testing. Performed By: #### I NFLUAB #### [facility] [address] [place] [address] Dr. Salma Ro INTERNAL CONTROLS Within Normal Limits Normal Wi thin Normal Limits [facility] Comment on above: Performed By: #### I NFLUAB #### [facility] [address] [place] [address] Dr. Salma Ro INSULINon 01-11-2022 Insulin 27.8 uIU/mL Critically high 2.6-24.[address] [facility] Comment on above: Performed By: #### I NSULIN #### [facility] [address] [place] [address] Dr. Salma Ro CBC AUTO DIFFon 01-10-2022 BASO # 0.0 103/ul Normal 0.0-0.1 [facility] Comment on above: Performed By: #### I NSULIN #### [facility] [address] [place], [place] [id number] Dr. Salma Ro Basophils/100 WBC (Bld) 0.4 % Normal 0.2-2.0 [facility] Comment on above: Performed By: #### I NSULIN #### [facility] [address] [place] [address] Dr. Salma Ro EO # 0.2 103/ul Normal 0.0-0.7 [facility] Comment on above: Performed By: #### I NSULIN #### [facility] [address] [place] [address] Dr. Salma Ro Eosinophils/100 WBC (Bld) 1.8 % Normal 0.9-7.0 [facility] Comment on above: Performed By: #### I NSULIN #### [facility] [address] [place] [address] Dr. Salma Ro Erythrocyte distribution width (RBC) [Ratio] 12.9 % Normal 11.0-15.0 [facility] Comment on above: Performed By: #### I NSULIN #### [facility] [address] [place] [address] Dr. Salma Ro Hematocrit (Bld) [Volume fraction] 38.0 % Normal 36.0-48.0 [facility] Comment on above: Performed By: #### I NSULIN #### [facility] [address] [place] [address] Dr. Salma Ro Hemoglobin (Bld) [Mass/Vol] 12.6 g/dL Normal 12.0-16.0 [facility] Comment on above: Performed By: #### I NSULIN #### [facility] [address] [place] [address] Dr. Salma Ro IG # 0.03 10e3/ul Normal 0.00-0.03 [facility] Comment on above: Performed By: #### I NSULIN #### [facility] [address] [place] [address] Dr. Salma Ro IG % 0.4 % Normal 0.0-0.5 [facility] Comment on above: Performed By: #### I NSULIN #### [facility] [address] [place] [address] [address] Salma Ro LYMPH # 2.1 103/ul Normal 1.2-3.8 [facility] Comment on above: Performed By: #### I NSULIN #### [facility] [address] [place] [address] Dr. Salma Ro Lymphocytes/100 WBC (Bld) 24.6 % Normal 20.5-60.0 [facility] Comment on above: Performed By: #### I NSULIN #### [facility] [address] [place] [address] Dr. Salma Ro MANUAL DIFF REQ NO Normal [facility] Comment on above: Performed By: #### I NSULIN #### [facility] [address] [place] [address] Dr. Salma Ro MCH (RBC) [Entitic mass] 27.1 pg Normal 26.7-34.0 [facility] Comment on above: Performed By: #### I NSULIN #### [facility] [address] [place] [address] Dr. Salma Ro MCHC (RBC) [Mass/Vol] 33.2 g/dL Normal 29.9-35.2 [facility] Comment on above: Performed By: #### I NSULIN #### [facility] [address] [place] [address] Dr. Salma Ro MCV (RBC) [Entitic vol] 81.7 fL Normal 81.0-99.0 [facility] Comment on above: Performed By: #### I NSULIN #### [facility] [address] [place] [address] Dr. Salma Ro MONO # 0.5 103/ul Normal 0.3-0.8 [facility] Comment on above: Performed By: #### I NSULIN #### [facility] [address] [place] [address] Dr. Salma Ro Monocytes/100 WBC (Bld) 6.3 % Normal 1.7-12.0 [facility] Comment on above: Performed By: #### I NSULIN #### [facility] [address] [place] [address] [address] Salma Ro NEUT # 5.6 103/ul Normal 1.4-6.5 [facility] Comment on above: Performed By: #### I NSULIN #### [facility] [address] [place] [address] Dr. Salma Ro Neutrophils/100 WBC (Bld) 66.5 % Normal 43.0-75.0 [facility] Comment on above: Performed By: #### I NSULIN #### [facility] [address] [place] [address] Dr. Salma Ro Platelet mean volume (Bld) [Entitic vol] 10.4 fL Normal 9.5-13.5 [facility] Comment on above: Performed By: #### I NSULIN #### [facility] [address] [place] [address] Dr. Salma Ro PLT 395 103/ul Normal 150-450 [facility] Comment on above: Performed By: #### I NSULIN #### [facility] [address] [place] [address] Dr. Salma Ro RBC 4.65 106/ul Normal 4.20-5.40 [facility] Comment on above: Performed By: #### I NSULIN #### [facility] [address] [place] [address] Dr. Salma Ro WBC 8.4 103/ul Normal 4.0-11.0 [facility] Comment on above: Performed By: #### I NSULIN #### [facility] [address] [place] [address] Dr. Salma Ro FREE THYROXINE INDEX T7on FTI 2.79 Normal [facility] Comment on above: Performed By: #### L IPID, T7, TSH, CMP #### [facility] [address] [place] [address] Dr. Salma Ro T3U 34.0 % Normal 23.5-40.5 [facility] Comment on above: Performed By: #### L IPID, T7, TSH, CMP #### [facility] [address] [place] [address] Dr. Salma Ro T4 [Mass/Vol] 8.20 ug/dL Normal 5.53-11.00 [facility] Comment on above: Performed By: #### L IPID, T7, TSH, CMP #### [facility] [address] [place] [address] Dr. Salma Ro GLYCOHEMOGLOBIN A1Con 2021 ADA RECOMMENDATION ADA THERAPEUTIC TARGET 6.0 - 7.0 ACTION SUGGESTED > 7.0 Normal [facility] Comment on above: Performed By: #### A 1C #### [facility] [address] [place] [address] [address] Salma Ro Glucose [Mass/Vol] 114 mg/dL Normal [facility] Comment on above: Performed By: #### A 1C #### [facility] [address] [place] [address] Dr. Salma Ro HbA1c (Bld) [Mass fraction] 5.6 % Normal <=6.0 [facility] Comment on above: Performed By: #### A 1C #### [facility] [address] [place] [address] [address] Salma Ro IRONon 01-10-2022 Iron [Mass/Vol] 60.0 ug/dL Normal 37.0-170.0 [facility] Comment on above: Performed By: #### I KRISTA VITAD #### [facility] [address] [place] [address] Dr. Salma Ro LIPID PROFILEon 01-10-2022 CHOL-HDL RATIO NORM SEE BELOW Normal [facility] Comment on above: Result Comment: 3.3 - 4.4 LOW RISK 4.4 - 7.1 AVERAGE RISK 7.1 - 11.0 MODERATE RISK >11.0 HIGH RISK Performed By: #### L IPID, T7, TSH, CMP #### [facility] [address] [place] [address] [address] Salma Ro Cholesterol [Mass/Vol] 171 mg/dL Normal <=200 [facility] Comment on above: Performed By: #### L IPID, T7, TSH, CMP #### [facility] [address] [place] [address] [address] Salma Ro Cholesterol in HDL [Mass/Vol] 36 mg/dL Critically low 40-60 [facility] Comment on above: Performed By: #### L IPID, T7, TSH, CMP #### [facility] [address] [place] [address] Dr. Salma Ro Cholesterol in LDL [Mass/Vol] 98.4 mg/dL Normal [facility] Comment on above: Performed By: #### L IPID, T7, TSH, CMP #### [facility] [address] [place] [address] [address] Salma Ro Cholesterol.total/Cho lesterol in HDL [Mass ratio] 4.8 {ratio} Normal [facility] Comment on above: Performed By: #### L IPID, T7, TSH, CMP #### [facility] [address] [place] [address] Dr. Salma Ro HDL NORMAL > or = 60 mg/dl - LOW CARDIOVASCULAR RISK <40 mg/dl - HIGH CARDIOVASCULAR RISK Normal [facility] Comment on above: Performed By: #### L IPID, T7, TSH, CMP #### [facility] [address] [place] [address] [address] Salma Ro LDL CALC NORMAL SEE BELOW Normal [facility] Comment on above: Result Comment: <100 mg/dl OPTIMAL 100 - 129 mg/dl NEAR OR ABOVE OPTIMAL 130 - 159 mg/dl BORDERLINE HIGH 160 - 189 mg/dl HIGH >190 mg/dl VERY HIGH Performed By: #### L IPID, T7, TSH, CMP #### [facility] [address] [place] [address] Dr. Salma Ro Triglyceride [Mass/Vol] 183 mg/dL Critically high <=150 [facility] Comment on above: Performed By: #### L IPID, T7, TSH, CMP #### [facility] [address] [place] [address] [address] Salma Ro VLDL CALC 36.6 mg/dL Normal [facility] Comment on above: Performed By: #### L IPID, T7, TSH, CMP #### [facility] [address] [place] [address] [address] Salma Ro PROF 14(COMP METB)on 022 Albumin [Mass/Vol] 4.0 g/dL Normal 3.4-5.0 [facility] Comment on above: Performed By: #### L IPID, T7, TSH, CMP #### [facility] [address] [place] [address] [address] Salma Ro Albumin/Globulin [Mass ratio] 1.1 {ratio} Normal [facility] Comment on above: Performed By: #### L IPID, T7, TSH, CMP #### [facility] [address] [place] [address] Dr. Salma Ro ALP [Catalytic activity/Vol] 100 U/L Normal 46-116 [facility] Comment on above: Performed By: #### L IPID, T7, TSH, CMP #### [facility] [address] [place] [address] Dr. Salma Ro ALT [Catalytic activity/Vol] 40 U/L Normal 14-59 [facility] Comment on above: Performed By: #### L IPID, T7, TSH, CMP #### [facility] [address] [place] [address] [address] Salma Ro Anion gap [Moles/Vol] 14.4 mmol/L Normal [facility] Comment on above: Performed By: #### L IPID, T7, TSH, CMP #### [facility] [address] [place] [address] [address] Salma Ro AST [Catalytic activity/Vol] 17 U/L Normal 15-37 [facility] Comment on above: Performed By: #### L IPID, T7, TSH, CMP #### [facility] [address] [address] [address] Salma Ro Bilirubin [Mass/Vol] 0.2 mg/dL Normal 0.2-1.3 [facility] Comment on above: Performed By: #### L IPID, T7, TSH, CMP #### [facility] [address] [address] [address] Salma Ro Calcium [Mass/Vol] 8.6 mg/dL Normal 8.5-10.1 [facility] Comment on above: Performed By: #### L IPID, T7, TSH, CMP #### [facility] [address] [place] [address] Dr. Salma Ro Chloride [Moles/Vol] 105 mmol/L Normal 98-107 [facility] Comment on above: Performed By: #### L IPID, T7, TSH, CMP #### [facility] [address] [place] [address] Dr. Salma Ro CO2 [Moles/Vol] 26.1 mmol/L Normal 22.0-30.[address] [facility] Comment on above: Performed By: #### L IPID, T7, TSH, CMP #### [facility] [address] [place] [address] Dr. Salma Ro Creatinine [Mass/Vol] 0.72 mg/dL Normal 0.52-1.04 [facility] Comment on above: Performed By: #### L IPID, T7, TSH, CMP #### [facility] [address] [place] [address] Dr. Salma Ro EGFR-AF NIGERIAN >60 Normal >=[address] [facility] Comment on above: Performed By: #### L IPID, T7, TSH, CMP #### [facility] [address] [place] [address] Dr. Salma Ro EGFR-NON AF NIGERIAN >60 Normal >=60 [facility] Comment on above: Performed By: #### L IPID, T7, TSH, CMP #### [facility] [address] [place] [address] Dr. Salma Ro Globulin (S) [Mass/Vol] 3.7 g/dL Normal [facility] Comment on above: Performed By: #### L IPID, T7, TSH, CMP #### [facility] [address] [place] [address] Dr. Salma Ro Glucose [Mass/Vol] 105 mg/dL Normal 74-106 [facility] Comment on above: Performed By: #### L IPID, T7, TSH, CMP #### [facility] [address] [place] [address] Dr. Salma Ro Potassium [Moles/Vol] 4.5 mmol/L Normal 3.4-5.0 [facility] Comment on above: Performed By: #### L IPID, T7, TSH, CMP #### [facility] [address] [place] [address] Dr. Salma Ro Protein [Mass/Vol] 7.7 g/dL Normal 6.1-8.2 [facility] Comment on above: Performed By: #### L IPID, T7, TSH, CMP #### [facility] [address] [place] [address] Dr. Salma Ro Sodium [Moles/Vol] 141 mmol/L Normal 137-145 [facility] Comment on above: Performed By: #### L IPID, T7, TSH, CMP #### [facility] [address] [place] [address] Dr. Salma Ro Urea nitrogen [Mass/Vol] 20.0 mg/dL Critically high 7.0-18.0 [facility] Comment on above: Performed By: #### L IPID, T7, TSH, CMP #### [facility] [address] [place] [address] Dr. Salma Ro Urea nitrogen/Creatinine [Mass ratio] 27.8 mg/mg Normal [facility] Comment on above: Performed By: #### L IPID, T7, TSH, CMP #### [facility] [address] [place] [address] Dr. Salma Ro TSHon 01-10-2022 TSH 3.488 uIU/mL Normal 0.470-4.680 [facility] Comment on above: Performed By: #### L IPID, T7, TSH, CMP #### [facility] [address] [place] [address] Dr. Salma Ro TSH RANGE SEE BELOW Normal [facility] Comment on above: Result Comment: <0.3 4 UIU/ml HYPERTHYROID 0.34-5.60 UIU/ml EUTHYROID >5.60 UIU/ml HYPOTHYROID Performed By: #### L IPID, T7, TSH, CMP #### [facility] [address] [address] [address] Salma Ro VITAMIN D 25 OHon 01-10-2022 VIT D 25-OH 28.2 ng/mL Normal [facility] Comment on above: Performed By: #### I KRISTA VITAD #### [facility] [address] [address] [address] Salma Ro VIT D RANGES SEE BELOW Normal [facility] Comment on above: Result Comment: <20 ng/mL Vit D deficient 20 - <30 ng/mL Vit D insufficient 30 - 100 ng/mL Vit D sufficient >100 ng/mL Potential Toxicity Performed By: #### I KRISTA VITAD #### [facility] [address] [place] [address] Dr. Salma Ro Vital Signs Date Time Vital Sign Value Performing Clinician Facility 03-27-2024 08:37-0400 Blood Pressure Location Elissa Lue [facility] 03-27-2024 08:37-0400 Body temperature 97.52 [degF] Elissa Lue [facility] 03-27-2024 08:37-0400 Diastolic blood pressure 78 mm[Hg] Elissa Lue [facility] 03-27-2024 08:37-0400 Heart rate 88 /min Elissa Lue [facility] 03-27-2024 08:37-0400 Systolic blood pressure 116 mm[Hg] Elissa Lue [facility] 12-05-2023 09:16-0500 Body height 156.21 cm [facility] 12-05-2023 09:16-0500 Body mass index (BMI) [Ratio] 31.9 kg/m2 [facility] 12-05-2023 09:16-0500 Body weight 78.04 kg [facility] 12-05-2023 09:16-0500 Heart rate 88 /min [facility] 12-05-2023 09:16-0500 Respiratory rate 18 /min [facility] 12-05-2023 09:16-0500 SaO2% (BldA) [Mass fraction] 98 % [facility] 08-29-2023 11:30-0500 Body height 156.21 cm [facility] [employer] Other [facility] Other 08-29-2023 11:30-0500 Body mass index (BMI) [Ratio] 33.64 kg/m2 [facility] [employer] Other [facility] Other 08-29-2023 11:30-0500 Body weight 82.1 kg [facility] [employer] Other [facility] Other 08-29-2023 11:30-0500 Diastolic blood pressure 76 mm[Hg] [facility] [employer] Other [facility] Other 08-29-2023 11:30-0500 Respiratory rate 18 /min [facility] [employer] Other [facility] Other 08-29-2023 11:30-0500 SaO2% (BldA) [Mass fraction] 100 % [facility] [employer] Other [facility] Other 08-29-2023 11:30-0500 Systolic blood pressure 123 mm[Hg] [facility] [employer] Other [facility] Other 08-18-2023 10:11-0400 Body temperature 98.24 [degF] Nicholas Thurston [facility] 08-18-2023 10:11-0400 Diastolic blood pressure 92 mm[Hg] Nicholas Thurston [facility] 08-18-2023 10:11-0400 Heart rate 90 /min Nicholas Thurston [facility] 08-18-2023 10:11-0400 Respiratory rate 18 /min Nicholas Thurston [facility] 08-18-2023 10:11-0400 SaO2% (BldA) [Mass fraction] 95 % Nicholas Thurston [facility] 08-18-2023 10:11-0400 Systolic blood pressure 131 mm[Hg] Nicholas Thurston [facility] 07-11-2023 09:00-0400 Body height 156.21 cm [facility] [employer] Other [facility] Other 07-11-2023 09:00-0400 Body mass index (BMI) [Ratio] 33.9 kg/m2 [facility] Other [facility] Other 07-11-2023 09:00-0400 Body weight 82.74 kg [facility] Other [facility] Other 07-11-2023 09:00-0400 Diastolic blood pressure 82 mm[Hg] [employer] Other [facility] Other 07-11-2023 09:00-0400 Respiratory rate 20 /min [facility] Other [facility] Other 07-11-2023 09:00-0400 SaO2% (BldA) [Mass fraction] 98 % [facility] Other [facility] Other 07-11-2023 09:00-0400 Systolic blood pressure 119 mm[Hg] [facility] Other [employer] [facility] Other Encounters Encounter Date Encounter Type Care Provider Facility Start: 04-13-2024 End: 04-13-2024 ambulatory Elissa Mejia Facility:[facility] Start: 04-13-2024 End: 04-13-2024 Patient encounter procedure Elissa Mejia [facility] Start: 03-27-2024 End: 03-27-2024 ambulatory Elissa Mejia Facility:[facility] Start: 03-27-2024 End: 03-27-2024 Patient encounter procedure Elissa Mejia [facility] Start: 02-10-2024 End: 02-10-2024 ambulatory JODIE NELSONM Not Available Start: 12-05-2023 ambulatory Sammy Mike Facility :[facility] Start: 12-05-2023 End: 12-05-[address] [facility] Work Phone: Start: 12-05-2023 End: 12-05-2023 Patient encounter procedure [facility] Work Phone: Start: 11-12-2023 End: 11-12-2023 ambulatory GISELA A PETITTI Not Available Start: 10-15-2023 End: 10-15-2023 ambulatory Star LEONARDO Facility:[facility] Start: 10-15-2023 End: 10-15-2023 Patient encounter procedure Star LEONARDO [facility] Start: 09-03-2023 End: 09-04-2023 ambulatory GISELA A PETITTI Not Available Start: 08-30-2023 End: 08-30-2023 ambulatory Christine Gisella Evanse Facility:[facility] Start: 08-30-2023 End: 08-30-2023 Lab Drop off Christine J Sanaz [facility] Start: 08-29-2023 Follow-up encounter Sammy fatima [facility] Start: 08-29-2023 End: 08-30-2023 ambulatory Inderjit Joshi [facility] [employer] Other Start: 08-19-2023 ambulatory Elissa Mejia Facility:[facility] Start: 08-18-2023 End: 08-18-2023 Emergency department patient visit Nicholas Thurston [facility] Start: 08-14-2023 End: 08-14-2023 ambulatory Christine Yo Facility:[facility] Start: 08-14-2023 End: 08-14-2023 Lab Drop off Christine Yo [facility] Start: 07-22-2023 End: 07-22-2023 ambulatory Sammy Mike Other [facility] Other Start: 07-22-2023 Telephone encounter Sammy fatima [facility] Start: 07-11-2023 End: 07-11-2023 ambulatory Sammy Mike Other [facility] Other Start: 07-11-2023 Nutrition therapy Sammy Mike [employer] [facility] Start: 10-03-2022 End: 10-03-[address] INDERJIT JOSHI Facility:[facility] Start: 01-15-2022 Encounter for genera l adult medical examination without abnormal findings DR INDERJIT JOSHI [facility] Start: 01-10-2022 End: 01-11-[address] INDERJIT JOSHI Facility:[facility] Start: 01-10-2022 End: 01-11-2022 Encounter for general adult medical examination without abnormal findings DR INDERJIT JOSHI Facility:[facility] Immunizations Immunization Date Immunization Notes Care Provider Fa luciano 07-08-2022 SARS-CoV-2 (COVID-19 ) [id number] Star LEONARDO [facility] 02-14-2021 SARS-CoV-2 (COVID-19 ) mRNA-1273 vaccine Star LEONARDO [facility] 01-20-2021 SARS-CoV-2 (COVID-19 ) mRNA-1273 vaccine Star LEONARDO [facility] 05-02-2017 tetanus toxoid, redu maximino diphtheria toxoid, and acellular pertussis vaccine, adsorbed Star LEONARDO [facility] 12-17-2011 hepatitis B vaccine, adult dosage Star LEONARDO [facility] 06-26-2011 hepatitis B vaccine, adult dosage Star LEONARDO [facility] 05-23-2011 hepatitis B vaccine, adult dosage Star LEONARDO [facility] Payers Date Payer Category Payer Unknown [id number] 2023 [facility] [id number] 2023 Self-pay [id number] 1988 Unknown [id number] 1988 Unknown [id number] 1988 Unknown [id number] 1988 Unknown [id number] 1988 Unknown [id number] 1988 Unknown [id number] 1988 Unknown [id number] 1988 Unknown [id number] 1988 Unknown [id number] 1988 Unknown [id number] 1959 Unknown [id number] Medicaid [place] Advantage [id number] 501 [id number] Unknown [place] [address] BC/BS [id number] Unknown [id number] Unknown [id number] Social History Date Type Detail Facility Unknown if ever smoked [facility] Other Sex Assigned At [facility] Tobacco smoking status No Smokin g Status Entered [facility] Start: 1990 Sex Assigned At Female F [facility] Start: 03-27-2024 Tobacco smoking status Never s moked tobacco (finding) [facility] Tobacco smoking status Never [facility] Functional Status Date Assessment Result Facility 04-13-2024 Functional Status N/A [facility] 03-27-2024 Functional Status N/A [facility] 08-18-2023 Functional Status N/A [facility] Clinical Notes 07-11-2023 to 04-13-2024 Note Date & Type Note Facility 04-13-2024 Evaluation + Plan note Extrac mary from: Title:[facility] Note Author:Roberto JOSHI, Elissa Whyte . Date:04/13/24 Impression and Plan Assessment and Plan: Diagnosis: Atrophic vaginitis (THT32-SB N95.2, Working, Medical), Intrinsic sphincter deficiency (ISD) (JSL24-DV N36.42, Discharge, Medical), Stress incontinence, female (HKW17-AL N39.3, Discharge, Medical). 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 [facility]06-24-2024 Hospital Discharge instructions Patient Education 04/13/2024 09:52:19 [...] Address:Unknown When: Unknown Comments:Office to schedule [employer] [facility]06-24-2024 Note [id number] NoteCystoscopy ? Voiding after the procedure: [...] if you have a fever over 100 degrees.[facility] 03-27-2024 Hospital Discharge instructions Patient Education 03/27/2024 [...] including vitamins, herbs, eye drops, creams, and hjbt-bhc-nsibada medicines. Any problems you or family members [...] provider tells you to take them. Taking cpsl-sfh-aeeqqza medicines, vitamins, herbs, and supplements. General instructions [...] provider. Document Revised: 05/12/2021 Document Reviewed: 05/12/2021 [facility] Patient Education 2022 [employer]. 03/27/2024 08:34:27 Kegel Exercises Kegel Exercises Kegel [...] provider. Document Revised: 02/15/2022 Document Reviewed: 02/15/2022 [facility] Patient Education 2022 [employer]. 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 Aug, Dietary surveillance and counseling (ICD-10 - [...] representing insulin resistance. Explained pathophysiology to patient. [facility] Other 10-30-2023 Hospital Discharge instructions Follow Up Care 08/19/2023 10:13:34 With:JORDEN JOSHI, Star P, URL Address: [address] [place] [address]- When: Unknown [facility] [id number] Evaluation + Plan note Diagnostic Tests Pending * Chlamydia/Gonococcus, CLAUDIA 08/18/23 * Urine Culture 08/18/23 [facility]10-29-2023 Hospital Discharge instructions Patient Education 08/18/2023 11:41:37 [...] Treatment for this condition includes: Antibiotic medicine. Futk-nlb-cdyqupk medicines to treat discomfort. Drinking enough water [...] Follow these instructions at home: Medicines Take vrzk-msz-beomnrd and prescription medicines only as told by [...] provider. Document Revised: 05/19/2021 Document Reviewed: 05/19/2021 [facility] Patient Education 2022 [employer]. Follow Up Care 08/18/2023 10:05:00 With:Inderjit Adi Address: [address] [place] [phone]- Business (1) When:08/21/2023 11:41:26 Comments:Call the [...] you develop any new or worsening symptoms. 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 Jun, Dietary surveillance and counseling (ICD-10 - [...] with the patient, and documenting clinical information. [facility] Other Chiqe complaint+Reason for visit Narrative* Reason for Visit Dietary surveillance and counseling Exercise counseling Obesity, Class I, BMI 30-34.9 Prediabetes [facility] Work Phone: Evaluation + Plan note Future Appointments Appointment Date:10/15/2023 02:00:00 PM Scheduled Provider:Star LEONARDO MD Location:[facility] Appointment Type:URO New Patient Diagnostic Tests Pending * PAP [id number] [facility]30/23 [facility] Future Appointments Appointment Date:04/09/2024 11:30:00 AM Scheduled Provider: Location:[facility] Appointment Type:Urology CALL PAT FT Appointment Date:04/13/2024 09:15:00 AM Scheduled Provider: Location:[facility] Appointment Type:Urology FT [facility] Evaluation noteNo InformationNortPenn [facility] Other Evaluation note* Diagnosis Onset Date Resolution Status Dietary surveillance and counseling acute Exercise counseling acute Obesity, Class I, BMI 30-34.9 acute Prediabetes acute [facility] Work Phone: Hisojdi general Narrative - Reported* Type Description Date Medical History Cystic acne Medical History Hypertriglyceridmia Medical History Rhinitis Surgical History [place] teeth extraction Hospitalization History See above [facility] Other Hospital course Narrative No data available for this section [facility] No data available for this section [facility] No data available for this section [facility] Summary Purpose Family History No Family History [...] and content) DATE CREATED AUTHOR 10/12/2022 [facility] DATE CREATED AUTHOR AUTHOR'S ORGANIZ ATION 02/11/2024 [facility] EPIC DATE CREATED AUTHOR AUTHOR'S ORGANIZ ATION 02/27/2024 [facility] DATE CREATED AUTHOR AUTHOR'S ORGANIZ ATION 04/21/2024 [facility] REASON FOR VISIT (unrecogniz ed section and [...] Name: Inderjit Joshi MD Address: Address: [address], [place] [address] Goals (unrecognized section and content) Goals may [...] BE BASED ON THE PRIMARY CLINICAL RECORDS. [facility]. provides no warranty or guarantee of the accuracy or completeness of information in this document.
[2024-06-25 08:10] LABS: Basophils Percent Auto 0.6 % (0.2-2.0); Eosinophils Absolute Auto 0.2 10^3/uL (0.0-0.7); Eosinophils Percent Auto 2.3 % (0.9-7.0); Hematocrit 32.7 % (36.0-48.0); Hemoglobin 10.6 g/dL (12.0-16.0); Immature Granulocytes Abs Auto 0.02 10^3/uL (0.00-0.03); Immature Granulocytes Pct Auto 0.3 % (0.0-0.5); Lymphocytes Absolute Auto 1.7 10^3/uL (1.2-3.8); Lymphocytes Percent Auto 26.3 % (20.5-60.0); Mean Corpuscular HGB Conc 32.4 g/dL (29.9-35.2); Mean Corpuscular Hemoglobin 26.3 pg (26.7-34.0); Mean Corpuscular Volume 81.1 fL (81.0-99.0); Mean Platelet Volume 11.2 fL (9.5-13.5); Monocytes Absolute Auto 0.4 10^3/uL (0.3-0.8); Monocytes Percent Auto 6.4 % (1.7-12.0); Neutrophils Absolute Auto 4.2 10^3/uL (1.4-6.5); Neutrophils Percent Auto 64.1 % (43.0-75.0); Platelet Count 316 10^3/uL (150-450); Red Blood Count 4.03 10^6/uL (4.20-5.40); Red Cell Distribution Width 12.5 % (11.0-15.0); White Blood Count 6.6 10^3/uL (4.0-11.0)
[2024-06-25 09:02] LABS: Free T4 0.85 ng/dL (0.76-1.46)
[2024-06-25 09:06] LABS: Alanine Aminotransferase 34 U/L (14-59); Albumin Globulin Ratio 1.2; Albumin Level 3.7 g/dL (3.4-5.0); Alkaline Phosphatase 75 U/L (46-116); Aspartate Amino Transferase 23 U/L (15-37); BUN Creatinine Ratio 29.3; Bilirubin Total 0.2 mg/dL (0.2-1.0); Calcium 8.4 mg/dL (8.5-10.1); Chloride 105 mmol/L (98-107); Cholesterol 166 mg/dL (<=200); Estimated GFR (African America >60 (>=60); Estimated GFR (Non-African Ame >60 (>=60); Free T3 2.54 pg/mL (2.18-3.98); Globulin 3.2 g/dL; Glucose 96 mg/dL (74-106); HDL Cholesterol 42 mg/dL (40-60); LDL Cholesterol Calculated 99.8 mg/dL; Potassium 4.3 mmol/L (3.5-5.1); Sodium 140 mmol/L (136-145); Thyroid Stimulating Hormone 3.434 uIU/mL (0.358-3.740); Total Protein 6.9 g/dL (6.4-8.2); Triglycerides 121 mg/dL (<=150); VLDL CHOLESTEROL 24.2 mg/dL
[2024-06-25 09:10] LABS: Anion Gap 14.5; Carbon Dioxide 24.8 mmol/L (21.0-32.0); Estimated Average Glucose 108 mg/dL; Glycohemoglobin A1C 5.4 % (4.5-6.2)
[2024-06-25 19:28] LABS: Internal Control Within Normal Limits; Occult Blood Negative
[2024-06-26 10:10] LABS: Insulin 20.1 uIU/mL (2.6-24.9)
== END 2024-06-25 07:23 | disposition home or self-care (01) ==
LOC: LAB 07:22
PROVIDERS: PCP Family Medicine; Visit Provider Family Medicine
DX: Z00.00 Encounter for general adult medical examination without abnormal findings (principal); Z01.89 Encounter for other specified special examinations
CPT/HCPCS: 36415; 80053; 80061; 83036; 83525; 84439; 84443; 84481; 85025; G0328

== ENCOUNTER 2024-07-28 13:00 | Outpatient (OUT) | payer BC, OTHER, SELFPAY ==
--- OUTSIDE RECORDS SUMMARY | 2024-07-28 13:05 | XMS_ITS | CCD ---
Author Organization [facility] [employer] Care Team Providers Care Manager Highway Name Role Phone DR INDERJIT JOSHI Primary Care Unavailable ADI, DR JANSNE Admitting Unavailable ADI, DR JANSEN Attending Unavailable ADI, DR JANSEN Consulting Unavailable ADI, DR JANSEN Admitting Unavailable ADI, DR JANSEN Attending Unavailable ADI, DR JANSEN Consulting Unavailable ADI, DR JANSEN Primary Care Unavailable Sammy Mike Unavailable NONE, XXXX Primary Care Physician Unavailab Inderjit Teixeira Primary Care Physician [phone] GISELA PORTER Attending Unavailable GISELA PORTER Attending Unavailable JODIE TSAI Attending Unavailable Inderjit Joshi Primary Care Unavailable Sammy Mike Attending Unavailable Sammy Mike Admitting Unavailable Sammy Mike Admitting Unavailable Inderjit Joshi Primary Care Unavailable Sammy Mike Attending Unavailable Elissa Mejia Admitting Unavailable Elissa Mejia. Attending Unavailable Elissa [...] mechanism of action (substance) Drug allergy Unknown [employer] Other (6 sources) Sulfonamides (Antibiotic); Translations: [sulfa drugs] Drug allergy Unknown by patient [facility] (1 source) Sulfonamides (Antibiotic) Drug allergy (disorder) [address] [place] [address] Repository Medications Current Medications Medication Drug Class(es) Dates Sig (Normalized) Sig (Original) 12 hr buPROPion hydrochloride 90 mg / naltrexone hydrochloride 8 mg extended release oral tablet (1 source) Opioid Antagonist, Aminoketone Start: 06-26-2024 take 1 tablet by mouth once daily in the morning, then take 1 tablet by mouth twice daily, then take 2 tablets by mouth once daily in the morning, then take 1 tablet by mouth once daily in the evening, then take 2 tablets by mouth once daily in the morning, then take 2 tablets by mouth once daily in the evening Naltrexone-Bupropion (Contrave) 8-90 mg tablet extended release Active 1 TAB PO .COMPLEX 70 30 June 26, 2024 12:00am 1 tab orally; 1 tab po QAM x 1 week, then 1 tab po BID x 1 week,then 2 tabs po QAM and 1 tab po QPM x 1 week,then 2 tabs QAM and 2 tabs QPM cephalexin 500 mg oral capsule (1 source) Cephalosporin Antibacterial Start: 08-18-2023 End: 08-25-2023 take 1 capsule by mouth every twelve hours cephalexin 500 mg Cap 500 mg = 1 cap(s), Oral, q12hr, X 7 day(s), # 14 cap(s), Refills(s) 0 Start Date: 08/18/23 Stop Date: 08/25/23 Status: Ordered cholecalciferol 0.05 mg oral capsule (1 source) Vitamin D Start: 06-26-2024 take 50 ug by mouth once daily Cholecalciferol (Vitamin D3) Active 50 MCG PO Daily June 26, 2024 12:00am Clascoterone (1 source) Start: 06-26-2024 Clascoterone (Winlevi) 1 % cream Active APPLIC TOPICAL June 26, 2024 12:00am estrogens, conjugated (alf) 0.625 mg/ml vaginal cream (1 source) Estrogen Start: 04-13-2024 Premarin Vaginal 0.625 mg/g cream with applicator See Instructions, 30 gm, Refill(s) 1, Apply pea sized amount to urethra/vagina 3x a week at night x 1 month, then 2x a week for maintainence, [email or web address] #14, 154, cm, 04/13/24 9:25:00 EDT, Height/Length Dosing, 76, kg, 04/13/24 9:25:00 EDT, Weight Dosing Start Date: 04/13/24 Status: Ordered fluorouracil 50 mg/ml topical cream (1 source) Nucleoside Metabolic Inhibitor Start: 06-26-2024 Fluorouracil Active APPLIC TOPICAL June 26, 2024 12:00am Magnesium (3 sources) Magnesium 235mg two capsules qd Active magnesium oxide 400 mg oral tablet (4 sources) Start: 12-04-2023 take 400 mg by mouth once daily Magnesium Oxide Active 400 MG PO Daily June 26, 2024 12:00am Multivitamin preparation (7 sources) Start: 06-26-2024 take 1 tablet by mouth once daily Multivitamin Active 1 TAB PO Daily June 26, 2024 12:00am Start: 12-04-2023 take 1 tablet by jose th once daily Multivitamin Active 1 TAB PO Daily December 04, 2023 1:00am Start: 12-04-2023 take 1 tablet by jose th once daily Multivitamin Active 1 TAB PO Daily December 04, 2023 12:00am Multivitamin Act chyna Semaglutide Sodium 0.3 mg/ 0 .25 mL 0.25 mL (3 sources) Start: 07-11-2023 Semaglutide So dium 0.3 mg/ 0.25 mL 0.25 mL 0.25 mL Injection Once for 7 days Jun, Active Semaglutide Sodi um 0.3 mg/ 0.25 mL 0.25 mL 0.25 mL Injection Once for 7 days Active tretinoin 0.5 mg/ml topical lotion (1 source) Retinoid Start: 06-26-2024 Tretinoin (Alt dar) 0.05 % lotion Active TOPICAL June 26, 2024 12:00am Completed/Discontinued Medications Medication Drug Class(es) Dates Sig (Normalized) Sig (Original) benzoyl peroxide 100 mg/ml medicated liquid soap (6 sources) Start: 12-04-2023 End: 06-26-2024 Benzoyl Peroxide Discontinued 1 APPLIC TOPICAL Daily December 04, 2023 1:00am June 26, 2024 11:19am Benzoyl Peroxide Wash 10 % External for 30 Days PRN Active clindamycin 0.01 mg/mg topical gel (6 sources) Lincosamide Antibacterial Start: 12-04-2023 End: 06-26-2024 Clindamycin Phosphate Discontinued 1 APPLIC TOPICAL Twice daily December 04, 2023 1:00am June 26, 2024 11:20am Clindamycin Phos phate 1 % apply A SMALL AMOUNT topically to affected area twice a day External for 30 Days PRN Active ibuprofen 600 mg oral tablet (3 sources) Nonsteroidal Anti-inflammatory Drug Start: 07-10-2017 End: 06-26-2024 take 600 mg by mouth every six hours Ibuprofen Discontinued 600 MG PO Q6H 30 July 10, 2017 12:00am June 26, 2024 11:21am phentermine hydrochloride 37.5 mg oral tablet (1 source) Sympathomimetic Amine Anorectic Start: 06-26-2024 End: 06-26-2024 take 37.5 mg by mouth once daily Phentermine Discontinued 37.5 MG PO Daily June 26, 2024 12:00am June 26, 2024 11:56am 0.25 mg, 0.5 mg dose 1.5 ml semaglutide 1.34 mg/ml pen injector (6 sources) Start: 12-05-2023 End: 01-15-2024 inject 2.3 mg by subcutaneous injection every week Semaglutide Discontinued 2.3 MG SUBCUT every week December 05, 2023 10:18am January 15, 2024 4:08pm [employer] Start: 12-04-2023 End: 12-05-2023 inject 0.25 mg by subcutaneous injection every week Semaglutide Discontinued 0.25 MG SUBCUT every week December 04, 2023 1:00am December 05, 2023 10:19am for 4 weeks Semaglutide (Weight Loss) (4 sources) Start: 01-15-2024 End: 06-26-2024 Semaglutide (Weight Loss) (W egovy) 1 mg/0.5 mL pen injector Discontinued 1 MG SUBCUT every week 2 January 15, 2024 4:09pm June 26, 2024 11:22am Start: 01-15-2024 Semaglutide (W eight Loss) (Wegovy) 1 mg/0.5 mL pen injector Active 1 MG SUBCUT every week 2 January 15, 2024 4:09pm Start: 01-15-2024 End: 01-15-2024 Semaglutide (Weight Loss) (W egovy) 1 mg/0.5 mL pen injector Discontinued 1 MG SUBCUT every week January 15, 2024 12:00am January 15, 2024 4:10pm Semaglutide Base (2 sources) Start: 01-15-2024 End: 06-26-2024 inject 1 mL by subcutaneous injection every week Semaglutide Base Discontinued 0.33 ML SUBCUT every week 1.January 15, 2024 12:00am June 26, 2024 11:22am [facility] Pre-filled Syringes using Semaglutide Base. Dispense 1.32 mL = (Four 0.33 mL pre-filled syringes) Start: 01-15-2024 inject 1 mL by subcu taneous injection every week Semaglutide Base Active 0.33 ML SUBCUT every week January 15, 2024 12:00am [facility] Pre-filled Syringes using Semaglutide Base. Dispense 1.32 mL = (Four 0.33 mL pre-filled syringes) spironolactone 25 mg oral tablet (6 sources) Aldosterone Antagonist Start: 12-04-2023 End: 12-05-2023 take 1 tablet by mouth once daily Spironolactone (Aldactone) 25 mg tablet Discontinued 25 MG PO Daily December 04, 2023 1:00am December 05, 2023 10:19am Aldactone 25 MG 1 tablet Orally PRN Active sulfacetamide sodium 100 mg/ml topical lotion (6 sources) Sulfonamide Antibacterial Start: 12-04-2023 End: 06-26-2024 Sulfacetamide Sodium (Acne) Discontinued 1 APPLIC TOPICAL Twice daily December 04, 2023 1:00am June 26, 2024 11:22am Sulfacetamide So dium (Acne) 10 % External for 30 Days PRN Active TB Test (3 sources) Start: 02-18-2014 TB Test February 0.1 mL 24 hr tolterodine tartrate 2 mg extended release oral capsule (3 sources) Cholinergic Muscarinic Antagonist Start: 12-05-2023 End: 06-26-2024 Tolterodine Discontinued MG PO December 05, 2023 1:00am June 26, 2024 11:22am Problems Problem Classification Problem Date Documented Date Episodic/Chronic Acute bronchitis (4 sources) Acute bronchitis, unspecified; Translations: [ACUTE BRONCHITIS UNSPECIFIED] Onset: 10-03-2022 Episodic Administrative/social admission (18 sources) Dietary counseling and surveillance; Translations: [Other specified counseling] Onset: 08-29-2023 Episodic Diabetes mellitus without complication (9 sources) Other abnormal glucose; Translations: [Prediabetes] Onset: 12-05-2023 Episodic Disorders of lipid metabolism (11 sources) Dyslipidemia; Translations: [Hyperlipidemia, unspecified] Chronic Genitourinary [...] Chronic Other nutritional; endocrine; and metabolic disorders (6 sources) Obesity, unspecified; Translations: [Obesity, unspecified] Onset: 12-05-2023 Chronic Other nutritional; endocrine; and metabolic disorders (6 sources) Obese class I; Translations: [Obesity, unspecified] 12-04-2023 Chronic Other nutritional; endocrine; and metabolic disorders (1 source) Body mass index 30+ - obesity; Translations: [Body mass index (BMI) 31.0-31.9, adult] 06-26-2024 Chronic Other nutritional; endocrine; and metabolic disorders (1 source) Body mass index (BMI) 31.0-31.9, adult; Translations: [Body Mass Index 31.0-31.9, adult] 06-26-2024 Chronic Other nutritional; endocrine; and metabolic disorders (1 source) Abnormal weight gain; Translations: [Abnormal weight gain] 06-26-2024 Episodic Other nutritional; endocrine; and metabolic disorders (1 source) Abnormal weight gain; Translations: [Abnormal weight gain] 06-26-2024 Episodic Other and delivery including normal (3 sources) Vaginal delivery; Translations: [Encounter for full-term uncomplicated delivery] 07-09-2017 Episodic Other skin disorders (3 sources) Cystic acne; Translations: [Acne vulgaris] 12-04-2023 Episodic Unclassified (1 source) CONTACT W/AND (SUSP) EXPOS COVID-19; Translations: [CONTACT W/AND (SUSP) EXPOS COVID-19] Onset: 10-06-2022 Results Test Name Value Interpretation Reference Range Facility Coding Summary.on 04-14-2024 Coding Summary. CDYXLktr52SZy9mIu+PG hlYWQ+QC4TGYSkZ72ijU PloC8uQ8QELPdWPgceWL PHHTwSCaIjguEqVO5pyG NjZXJu IC8+FB6mBHRaJnscbUFb h1O7qSI6N36mhc7eJBmj oUR4OWAsTyNwdxdzv6np iUh6RIvjJuwxEzFa FGTxsY13NZR5jO53Qb75 wNQtaGJim8gnbUg3QpEj ZHGrWIB9aBibELmdx2Py JVJbD58kxIKdl5Z6 IGNvbGxhcHNlOyBlbXB0 fU4wNWtetvlcp2ibwqtp Jmn5iv41uTZhh1H3kYU6 G2BcvvJ2ANOucUOh GzeqdAZTuA3mwilxd5ey wwhoKnKjGZMeIOg1ABy6 RZEcvByuIuTyWR87WYZ8 QBNkieKuG4OlUNNl aZjqPrJ3k8N9Qk9GZ3ZL XnwuD1TZIABYWEtbaZN+ OC64mh10T2JhUqkzPhi7 RROaNRN1fST0kD6b WMEcCWegp5E3pSZ4I6Zc dtIyuc1gh3kwPQAyFNyg Y54ufJZij1O0EDGrsVG2 VFEzbFirMxLmsV48 Oyc+XWYedHjjw6QuNhgi e0qjx1rlzXp0NgbmEYRa deFemXfsGAX5o2SrJh8z KWKvdAO4kDL8rW6j CxCqFqY3ICkkG861TpHl bWYwLnilC74jA6XhgKE+ PYDuSlo6GHTctFegDJ7u I0ZnTWUfkmhutILm qZkePN4qMEBjhhpmTEVj rP8uNVTmF9i6LjRuSxM7 BLxqG9SpWHEqypvrNs76 uF8hHyCnKfL4FZsw T6EvflG2EQWqwOFcIYjs VGC4O09bp8S8IDIuUCQi MYI3lUY1qJ0ktXviscwb bGVmdDsgdmVydGlj POkrLDviY544MUBxjQwy PkNvZGluZyBEYXRlOiAg MDYvMjUvMjAyNDwvdGQ+ ERJuXDS2pNvoQUEa kTZiLUgsRj7kxFqphUlx TG2uHFKqtqdaXVYowB7m TITmkMBraQvmWV3hKZEe zmjxm462SeKmZKN8 SUCucPOqU8IduH5tAnCu TZFhCCNzV1MdvSAaTJqs M344KYmoDaO7CKKgjxXy B4PrZDDkwJadQkN9 q0A7Il7Ul8OkzhllJ6Ek dSCaAyUlHsemPYo2F1Kp PjwvdHI+CW76TBQrIR69 RZd3VBU4wIelMVjb WCAbK5VlgF6eWmFqWJGu ZGRkOyc+PHRhYmxlIHdp ZHRoPScxMDAlJyBzdHls ED4jRh8wPXVbIEYw wQmshWOfYhOfb1nhLXLi DEgbGN0arCorN8QdbFL4 HTVxr9l9Pe00Z07gG7Ye dXA+KDZigSR9dQA6 sU4eQsZaEcD3IEppK549 OtObtZMvSzwmo5ddm4qq xHy9ThL8BBMgzhBsbHux QBS7k2EkVi50P67c IHdpZHRoPSIxNSUiIHZh yLbxsz4eiO8eOi2+PGNv rRZ6lKT5kE0gYpDgOpX2 MKoyW023AnOyjATl Ikkbo8ufk2xwyCc8OtEj OMNfttXxzCjkICT0j7Dh Kb05B5QmfLhry7McRkw9 cn70bCBua6E5gWJ6 F0NxUOErcubgpPGggQbc TJ1lZTFttrajRFGglZ1y ZSEnB6e7MnJhQnR6OGhs Q3IymdS5MGSddJEs INEeaLPDzW8lateth1mo kshoRoVnOAYdTUo2ICa6 EPQtaFtySxOxFTC9RtV8 MUC8uZRrkZ7edPxx uinqgP1lGiv+LYZ9qIBp iABJGS4tSmuxaMS+PHRk XHH8iHoaBHdhEOGdtW6b LXTpU1u0OzZyReJ1 BRavS5JiabM0YJEfkARl MPOqlYBRfR8whkvjp5cy mgacIlBkHSFnHBw7GIk8 LWFsaWduOiBsZWZ0 MxV6FCR9jMXwwO8xrTlq lfxbzW6qPvx+QmlydGgg WXW5SNt1O0PvPcp8TUTi bRtpNE3ylSGfRGpn Pw1jkPisnEgdRT5nNFJu cgxpi115HpUvn9ekTGZe pKYpXXitEHO0B63zs4P7 TTRwBWEfUVD9mHQ3 bI9nsYmbphvbjQJqaGrr zmImmIfbBHyoTRqcN026 QBWtpSnnGeCkKNp8O6Tq Zbf1ZLSxyRtyTV4f rLWhEVzoJq8fgPnilEjk RB6bWHRaxafqg773WgLf v6keVFYvkVAcLRowVMR7 H19tc4D3PEGnKHLr SDH2yXW0uO8yxFpxflsf bGVmdDsgdmVydGljYWwt WXlkD053QQQwmLdjCdBg qPo4C3NdWlm2HHUw lHyyHB2yzGBfHGktFi4b jLnatHilZW4cUUYwoigs v820GvOil8aiHTIhkYNb EGuxQNL1O44wz0B9 HXEpTJPrIVK5cQT3yO1u bGlnbjogbGVmdDsgdmVy gLxgLDxuKVomZ026EJIv cDsnPlBhdGllbnQg DGfyEKp5B9YqEwpihJL+ DG27WAGgIM31iJDtcINe h1vtkUf4MpCvGCOzMGP2 oSnqLMyam5EsVMCw M60ijFCyy2Y1LJSaxBsi wEYzXxWmeVX6xN6nPVzz crtwx0evnzlePlbos8ci sy05jV25Q93oXGuy ZHRoPSIzMCUiIHZhbGln ut8kdP2mUv7+PGNvbCB3 aCI1dH6oFOQoXbK0RQrd F081XsQgeHMuAkth h5eeg9qgxHy2JqE8MOQc fuByzOgnLMY4f0AsVf28 O81fFHbxKMKfVOElSDLa RDOzfTggke1vcI6c Ii8+WAIngHN2fTX0fY7w OrNoXmT2HDojQ041ErGa hYXbMnurC86pB2TenCL+ BZFiQnl1XXLycMkm AO2hdUQaQQooDa9aEHK8 JuGeVjFjKRywI2NiUDZi cmkvizulyQH4JSUoMKJf tC49Jy7cgNjhOOUt vDPKcQ8nhncoo9xrdyux LkMgWIOjMFx3KUb3HUOr dByqXvHjGJO6ZcU2BQL6 xAGztF7otBulkjho hW6cP9CzMDRvyggcRn34 lO4uEtYmPiW5YNssWwc+ C2QQT2uWTOGKZJYHFfPT QTwvdGQ+PHRkIHN0 kSwdIRbfZHJagN2uWFHp D2y6KhEkKjH1LMhaG4Kf LUQdtkptMc77wL9aJgYa CwT7NEwvK9OprsP0 SKAocTIqJNhvDQK0L80x m0O2ARVoSYSwAIJ2zHR7 lJ1gcKzwoyfpaAYyvHmy dmVydGljYWwtYWxp T970MKGpiRaxEqD8NpDp AqA2NLd1U4UpFoq6GPYb zBhePD4reCWfUVijWt6x kXhteHzbIK5xMEQn omtgLFHtoQ8hAHTcsQLu iNndSS6xQMHfujogl751 BcYpAJP4BTSixETdE2Vh zO4gBiBfKPVlLGQr L0FxmDIrOEkrF766CRwz PxV9WKTtshFiH9ZgSKYc sMbtWyB1c3M4Sx2sFOQJ ZWFyczwvdGQ+PHRk UMV0oUneCAgjAXYabQ7c XPFtT2f5MfSuTaY2CEzv A4YlPLJualteGf07oW7o NrCqUeL4FRcnD5Jw qhQ8WFDfxNHsZDjtIJZ6 L01sk8J0NJEqKNFwNPF3 rGK0qI2vuOfknzzbzOOe dDsgdmVydGljYWwt HErgT984EEFqdKqaDjTz bWFsZTwvdGQ+PHRkIHN0 pPocNRepIEKbyJ4vAPFc N5w9BoRgPlN1ZElp U0RfUJAqgyzgCb93iD0o LlMxQwD8HBreD6KalgE2 QFBvtQRzZWxpXUP5H81n r4L2KWZjSZImDPD5 vEZ8rT5kyLrpbzyrvNSb dDsgdmVydGljYWwtYWxp D165WCMglYsiJr60oWEc zVggwhA0M0OaCymu dHI+KC32NJUzPG86lBZe kLAai6icrGm8EeZlKJYf SMA4tQnfZTbti1FlZLXm X90zkYQvb5A6DVDl kPwjqZGnAbQahIM1pG1l JTqfedize8znrmgoFuni b7tabv20aY52I60uJDnr ZHRoPSIzMCUiIHZh aLuxbf2hfU5hJo7+PGNv iIN2iJV0sE1iHlMpMvA8 FJbhK969ZxGmeTIzWvae t6jym6xfwTh0GuNf EGEsyuAmuAdlLJK7w5Oz Nf07O13hJLqzGDAuITPx GUNaRRNwkPndpa5ioU5e Ii8+XK0hw4fofa68 rY33jAJ+VIMbOUJ4nWvn GLezBGRisX2zDOxxLxQ9 AQPjPkCvgK58kJJfHIqi Bp8fbHhoaWzuGF7t CPRcmvpur960LxNpz3nz YGShcVVmYOzfGLP8P88i p2F0WAHjCNEcLSW9tMD3 pE1rnXxzjxsfoSZk dDsgdmVydGljYWwtYWxp S979TEMzpSfhBeGcnQOc G4tigoBXPN7yGivazWQ+ UWGaIJF2xVmwHClw UAThrQ8cIPRzI7x6PkJh ApE7SEykN9TeoqN7ZBTj wCGfHWMfwCPNjB4ifrlc l8zctavxRsRiXRIk XWi9UTz3YXSarHreTzHq IPK7GaK5QUB5mPEwwP0r rVjhekgekX1sOpq+RklO OjwvdGQ+PHRkIHN0 wWmyXKeqDPNqlB4oPKPy A1a8GeSdLjB3EVjdD2Un khJ9DIFiuPJtDUCueYXE bH8xfizqd5uhsatg TyFcHROkYNj9EAy8NEIo lCenXlUcMMH6QaU3AAD3 sLYseV2dbJbrjxtgvZ1b Oyc+TVJOOjwvdGQ+ YTBfNAV4uDjoLXjwYDBl hW2eBSUoN3w2DeVxQxN9 DSkdU2NcrxY4PZHcxZZn TPKlfOPYtY8bjjbj p3fgzptaIiGjOJYnKJc4 AJz4WGVooRvuBgMoZLA1 VoA9KGF3aXGcpM3fwCtt altsaU3oVno+UGF5 XRR8WB14FB32I9MvLhvl dGFibGU+PHRhYmxlIHdp ZHRoPScxMDAlJyBzdHls PA5jRi2jAOWoFRCc bGxhcHNlOiBjb (more content not included)... Normal [facility] Consent for Procedure/Surger yon 04-13-2024 Consent for Procedure/Surgery [id number] 2#1.00TIFF Normal [facility] Consent for Treatmenton 03-22 Consent for Treatment [id number] #1.00TIFF [facility] Inpatient Patient Summaryon 04-13-2024 Inpatient Patient Summary [place] [id number] Clinical Summary Person Information Name: MEREDITH BOO Age: 33 Years : 1990 Sex: Female PCP: Inderjit Joshi MD Marital Status: Race: White Ethnicity: Non- or Language: Uruguayan Visit Id: Visit Reason: GROSS HEMATURIA Speciality: Acuity: Enc Type: Outpatient Med Service: Surgery Arrival: 04/13/2024 08:42:19 Discharge: Dispo Type: Address: [address] [place] [address] [address] [place] [phone] Provider Notes: Diagnosis: Gross hematuria; Intrinsic sphincter [...] Information: EU - Cystoscopy Discharge Instructions (CUSTOM) [facility] IntraOperative Documentson 0 04-13-2024 IntraOperative Documents [id number] 4#1.00TIFF [facility] Main OR Intraoperative Recor don 04-13-2024 Main OR Intraoperative Record IntraOp Document Type FTURO Summary Primary Physician: Elissa Mejia MD Finalized Date/Time: 04/13/24 09:54:15 Pt. Name: MEREDITH BOO/Sex: 1990 Female Med Rec #: [id number] Physician: Elissa Mejia MD Financial #: [id number] Pt. Type: O Room/Bed: / Admit/Disch: 04/13/24 08:42:19 - Institution: Case Times FTURO Entry 1 Patient Times In Room 04/13/24 09:41:00 Out Room 04/13/24 09:54:00 Procedure Times Start 04/13/24 09:43:00 Stop 04/13/24 09:49:00 Anesthesia Times Last Modified By: Liliana Monsivais 04/13/24 09:54:03 Case Attendance FTURO Entry 1 Entry 2 Entry 3 Case Attendee Roberto JOSHI, Liliana Boss PSYCHOSOCIAL REHABILITATION COUNSELOR, Dior Valdez Role Performed Surgeon - Primary Masonry Contractor - Primary Scrub - Primary Time In [...] PELVIC EXAM Primary Procedure Yes Primary Surgeon Roberto JOSHI, Elissa White Start 04/13/24 09:43:00 Stop 04/13/24 09:49:00 Anesthesia [...] Position Verified Availability Equipment, Medication Time Out Lue MD, Elissa M., Verified (If Participants Liliana Monsivais, Applicable) Dior [...] 04/13/24 09:54 Liliana Monsivais 04/13/24 09:[address] [facility] Main OR Preoperative Recordo n 04-13-2024 Main OR Preoperative Record Holding Area Document Type FTURO Summary Primary Physician: Elissa Mejia MD Finalized Date/Time: 04/13/24 09:42:06 Pt. Name: MEREDITH BOO/Sex: 1990 Female Med Rec #: [id number] Physician: Elissa Mejia MD Financial #: [id number] Pt. Type: O Room/Bed: / Admit/Disch: 04/13/24 [...] Complaints of Pain: No Skin Integrity Intact, [place], Warm, & Dry Vitals - EU Blood Pressure 114/75 Pulse 91 bpm Respirations 18 br/min SPO2 RN Reviewed Yes Last Modified By: Liliana Monsivais 04/13/24 09:42:04 Finalized By: Liliana Monsivais Document Signatures Signed By: Abigail Santillan LPN 04/13/24 09:22 Liliana Monsivais 04/13/24 09:[address] [facility] Operative Reporton Operative Report Patient: MEREDITH BOO Age: 33 years Sex: Female : 1990 Associated Diagnoses: None Author: Elissa Mejia MD Procedure Operative Information Details: Date/ Time: 04/13/2024 09:57:00. Pre-Op Dx: Gross Hematuria - R31.0. Post-Op Dx: Atrophic vaginitis ([id number] N95.2, Working, Medical), Gross hematuria ([id number] R31.0, Discharge, Medical). Anesthesia Type: Local. Procedure: [...] regarding atrophic vaginitis and urinary leakage. Normal [facility] Comment on above: Result Comment: Elec tronically Signed By: Elissa Mejia MD\.br\Date and Time Signed: 04/13/24 09:59 EDT Outpatient Surgery Discharge Instructionon 04-13-2024 Outpatient Surgery Discharge Instruction [id number] 6#1.00TIFF Normal [facility] Outpatient Surgery Discharge Instruction [place] [id number] Patient Discharge Instructions PERSON INFORMATION Name: MEREDITH BOO Date of : 1990 Current Date: 04/13/2024 09:56:47 PHYSICIANS Admitting Physician: Elissa Mejia MD Comment: Discharge Diagnosis: Gross hematuria; Intrinsic sphincter deficiency (ISD); Stress incontinence, female MEREDITH BOO has been given the following list of [...] you have a fever over 100 degrees. ITIRSO KASANDRA, have received the attached patient education materials/instructio ns and have verbalized understanding: May we do a follow up call? Yes No I was present when discharge instructions were given Patient Signature Date Clinican/Nurse Signature Date You may receive a survey from [employer] asking you to rate your care experience. Your feedback is important and will help us understand what we do well and how we can improve the quality of care we provide to you, your loved ones and our community. It?s an honor to serve you. Thank you for choosing [facility] Normal [facility] Progress Note-Physicianon Progress Note-Physician Patient: MEREDITH BOO Age: 33 years Sex: Female : 1990 [...] 2x a week for maintainence, [id number], 154, cm, 04/13/24 9:25:00 EDT, Height/Length Dosing, 76, kg, 04/13/24 9:25:00 EDT, Weight Dosing Impression and Plan Assessment and Plan: Diagnosis: Atrophic vaginitis ([id number]-IT N95.2, Working, Medical), Intrinsic sphincter deficiency (ISD) ([id number]-PY N36.42, Discharge, Medical), Stress incontinence, female (JWF56-OL N39.3, Discharge, Medical). 33 year old female [...] Risks as above. 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 [facility] Comment on above: Result Comment: Elec tronically Signed By: Roberto JOSHI, Elissa White\.br\Date and Time Signed: 04/13/24 10:05 EDT Insurance Correspondenceon 0 04-01-2024 Insurance Correspondence [id number] 9#1.00TIFF [facility] Formson 03-30-2024 Forms [id number]# 1.00TIFF [facility] Physician Referralon 024 Physician Referral [id number] 8#1.00TIFF [facility] Screenson 03-30-2024 Screens [id number] 7#1.00TIFF [facility] Ambulatory Visit Summaryon 0 03-27-2024 Ambulatory Visit Summary MEREDITH BOO :1990 Visit Date:03/27/2024 Ambulatory Visit Instructions Your Diagnosis Intrinsic sphincter deficiency (ISD) Stress incontinence, female Gross hematuria Your Care Team Attending Physician - Roberto JOSHI, Elissa White Primary Care Physician - Adi JOSHI, Inderjit Discharge Vitals Temperature (Temporal Artery) 36.4 ?C Heart Rate (Peripheral) 88 Blood Pressure 116/78 Height 154.94 cm Height 61 in Weight 76.5 kg Weight 168.3 lb BMI 31.87 What to do next You Need to Schedule the Following Appointments Follow Up with Roberto JOSHI, Elissa White, BULMARO, URO When: Where: Allergies sulfa drugs (Unknown [...] including vitamins, herbs, eye drops, creams, and qjdh-rcf-irgpstl medicines. ? Any problems you or family [...] tells you to take them. ? Taking ugun-jae-yljadak medicines, vitamins, herbs, and supplements. General instructions [...] (local anest (more content not included)... Normal [facility] Patient Educationon 03-27-20 Patient Education [...] provider. Document Revised: 02/15/2022 Document Reviewed: 02/15/2022 [employer] Patient Education ? 2022 [employer] Urology Injection Treatments for Urinary Incontinence [...] including vitamins, herbs, eye drops, creams, and kxnw-hnl-tmhpkqi medicines. ? Any problems you or family [...] drinks th (more content not included)... Normal 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 Normal [facility] Comment on above: Result Comment: Elec tronically Signed By: Elissa Mejia MD\.br\Date and Time Signed: 03/27/24 09:46 EDT\.br\Electronically Co-Signed By: Ashlee Ramon\.br\Date and Time Co-Signed: 03/27/24 09:34 EDT PAP [id number] 09-05-2023 Cytology report Cyto stain Doc (Cvx/Vag) Note Invalid Interpretation Code [facility] Comment on above: Result Comment: TEST S RESULT FLAG UNITS REF RANGE LAB Clinician Provided Cytology Information Source.............Endocervix No. of containers..01 ThinPrep Vial DIAGNOSIS: 01 NEGATIVE FOR INTRAEPITHELIAL LESION OR MALIGNANCY. Specimen adequacy: 01 Satisfactory for evaluation. Endocervical and/or squamous metaplastic cells (endocervical component) are present. Performed by: Anastasia Vaughn, [employer]ig[employer] Head Stringer (ASCP) . 01 Note: Note 01 The [...] <-Panic Low,>-Panic High,A-Abnormal,AA-Critical Abnormal Performed at: [address] [address] Itzel Kovacs MD, Performed By: #### 1 [id number] #### [facility] [address] [place] [address] HPV 16+18+31+33+35+39+45+ 51+52+56+58+59+66+68 DNA Probe+sig amp Ql (Cvx) Negative Invalid Interpretation Code Negative [facility] Comment on above: Result Comment: This nucleic acid amplification test detects fourteen high-risk HPV types (16,18,31,33,35,39,45,51,52,56,58,59,66,68) without differentiation. Performed at: [facility] [id number] MD Fermín Robbins Performed at: =G [facility] [id number] MD Fermín Robbins Performed By: #### 1 [id number] #### [facility] [address] [place] [address] PAP [id number] 08-30-2023 Collection Technique BRUSH-SPATULA Normal [facility] Comment on above: Performed By: #### 1 [id number] #### [facility] [address] [place] [address] Gynecological Body Site ENDOCERVIX Normal [facility] Comment on above: Performed By: #### 1 [id number] #### [facility] [address] [place] [address] Physician Orderon 08-30-2023 Physician Order [id number] #1.00TIFF Normal [facility] ED Note-Physicianon 08-24-20 ED Note-Physician [...] over a week ago. Patient saw her BOARD HAMMER OPERATOR who diagnosed her with a UTI [...] was confirmed by urine dipstick by her BOARD HAMMER OPERATOR, culture was not performed. Patient reports she has not been able to follow-up with her BOARD HAMMER OPERATOR over the weekend. Patient ports being [...] with her PCP as well as her BOARD HAMMER OPERATOR. Return precautions to ED were discussed. [...] q12hr Follow-up With When Contact Information Inderjit Adi In 3 days 08/21/2023 EDT [facility] [place] [address]- Business (1) Additional Instructions: Call the office [...] Patient seen and evaluated by the physician assistant signal maintainer. Attending physician was present in the emergency department and supervised care. This visit was performed by both the physician and an APC. I performed all as (more content not included)... Normal [facility] Comment on above: Result Comment: Elec tronically Signed By: Ryan Dorsey PA-C\.br\Date and Time Signed: 08/18/23 11:45 EDT\.br\Electronically Co-Signed By: Nicholas Thurston MD\.br\Date and Time Co-Signed: 08/24/23 08:18 EDT Chlamydia/Gonococcus, NAAon 08-21-2023 C. trachomatis rRNA CLAUDIA+probe Ql (Unsp spec) Negative Invalid Interpretation Code Negative [facility] Comment on above: Performed By: #### 1 [id number] #### [facility] [address] [place] [address] N. gonorrhoeae rRNA CLAUDIA+probe Ql (Unsp spec) Negative Invalid Interpretation Code Negative [facility] Comment on above: Result Comment: Perf ormed at: =G [facility] [address] [place], [place] [id number] MD Fermín Robbins Performed By: #### 1 [id number] #### [facility] [address] [place] [address] C Urineon 08-20-2023 Bacteria identified Cx Nom (U) Microbiology PROCEDURE: Urine Culture [R1] SOURCE: U CleanCatch BODY SITE: COLLECTED DATE/TIME: 08/18/2023 10:48 EDT RECEIVED DATE/TIME: 08/18/2023 15:34 EDT START DATE/TIME: 08/18/2023 15:34 EDT FREE TEXT SOURCE: Willian PEDERSON, Ryan Dorsey PA-C, Ryan Del Cid FINAL REPORTS Final Report [] Verified Date/Time: 08/20/2023 09:14 EDT 2,000 cfu/ml Mixed skin contaminants Performing Locations R1: This test was performed at: [facility], [address] [place] [address], [address] , [place], Normal [facility] Comment on above: Performed By: #### 2 [id number] ####[facility] [address] [place] [address] Auto Diffon 08-18-2023 Basophils/100 WBC (Bld) 0.4 % Normal 0.0-2.[address] [facility] Comment on above: Order Comment: Order Added by Discern Expert. Performed By: #### 1 [id number] #### [facility] [address] [place] [address] Basophils/Leukocytes Auto (Bld) [Pure # fraction] 0.0 E9/L Normal 0.0-0.[address] [facility] Comment on above: Order Comment: Order Added by Discern Expert. Performed By: #### 1 [id number] #### [facility] [address] [place] [address] Eosinophils/100 WBC (Bld) 1.9 % Normal 0.0-8.[address] [facility] Comment on above: Order Comment: Order Added by Discern Expert. Performed By: #### 1 [id number] #### [facility] [address] [place] [address] Eosinophils/Leukocyte s Auto (Bld) [Pure # fraction] 0.2 E9/L Normal 0.0-0.[address] [facility] Comment on above: Order Comment: Order Added by Discern Expert. Performed By: #### 1 [id number] #### [facility] [address] [place] [address] Lymphocytes/100 WBC (Bld) 21.1 % Normal 14.0-50.[address] [facility] Comment on above: Order Comment: Order Added by Discern Expert. Performed By: #### 1 [id number] #### [facility] [address] [place] [address] Lymphocytes/Leukocyte s Auto (Bld) [Pure # fraction] 1.8 E9/L Normal 1.0-4.[address] [facility] Comment on above: Order Comment: Order Added by Discern Expert. Performed By: #### 1 [id number] #### [facility] [address] [place] [address] Monocytes/100 WBC (Bld) 5.7 % Normal 4.0-14.[address] [facility] Comment on above: Order Comment: Order Added by Discern Expert. Performed By: #### 1 [id number] #### [facility] [address] [place] [address] Monocytes/Leukocytes Auto (Bld) [Pure # fraction] 0.5 E9/L Normal 0.2-1.[address] [facility] Comment on above: Order Comment: Order Added by Discern Expert. Performed By: #### 1 [id number] #### [facility] [address] [place] [address] Neutrophils/100 WBC (Bld) 70.9 % Normal 36.0-75.[address] [facility] Comment on above: Order Comment: Order Added by Patt Expert. Performed By: #### 1 [id number] #### [facility] [address] [place] [address] Neutrophils/Leukocyte s Auto (Bld) [Pure # fraction] 6.2 E9/L Normal 2.0-7.[address] [facility] Comment on above: Order Comment: Order Added by Patt Expert. Performed By: #### 1 [id number] #### [facility] [address] [place] [address] BMPon 08-18-2023 Creatinine [Mass/Vol] 0.7 mg/dL Normal 0.5-1.3 [facility] Comment on above: Performed By: #### 1 [id number] #### [facility] [address] [place] [address] Urea nitrogen [Mass/Vol] 18 mg/dL Normal 5-[address] [facility] Comment on above: Performed By: #### 1 [id number] #### [facility] [address] [place] [address] Urea nitrogen/Creatinine [Mass ratio] 26 No Units High 10-[address] [facility] Comment on above: Performed By: #### 1 [id number] #### [facility] [address] [place] [address] Anion gap [Moles/Vol] 8 mmol/L Normal 6-16 [facility] Comment on above: Performed By: #### 1 [id number] #### [facility] [address] [place] [address] Calcium [Mass/Vol] 9.2 mg/dL Normal 8.9-11.[address] [facility] Comment on above: Performed By: #### 1 [id number] #### [facility] [address] [place] [address] Chloride [Moles/Vol] 107 mmol/L Normal 101-111 [facility] Comment on above: Performed By: #### 1 [id number] #### [facility] [address] [place] [address] CO2 [Moles/Vol] 25 mmol/L Normal 21-31 [facility] Comment on above: Performed By: #### 1 [id number] #### [facility] [address] [place] [address] Glucose [Mass/Vol] 98 mg/dL Normal 55-[address] [facility] Comment on above: Result Comment: If t his glucose result represents a fasting glucose, interpretation should refer to the following reference range: 55-99 mg/dL Performed By: #### 1 [id number] #### [facility] [address] [place] [address] Potassium [Moles/Vol] 4.0 mmol/L Normal 3.5-5.3 [facility] Comment on above: Performed By: #### 1 [id number] #### [facility] [address] [place] [address] Sodium [Moles/Vol] 136 mmol/L Normal 135-[address] [facility] Comment on above: Performed By: #### 1 [id number] #### [facility] [address] [place] [address] CBC w/ Auto Diffon Erythrocyte distribution width (RBC) [Ratio] 13.0 % Normal 10.9-14.[address] [facility] Comment on above: Performed By: #### 1 [id number] #### [facility] [address] [place] [address] Hematocrit (Bld) [Volume fraction] 41.8 % Normal 34.0-46.[address] [facility] Comment on above: Performed By: #### 1 [id number] #### [facility] [address] [place] [address] Hemoglobin (Bld) [Mass/Vol] 14.2 g/dL Normal 12.0-16.[address] [facility] Comment on above: Performed By: #### 1 [id number] #### [facility] [address] [place] [address] MCH (RBC) [Entitic mass] 27.5 pg Normal 27.0-34.[address] [facility] Comment on above: Performed By: #### 1 [id number] #### [facility] [address] [place] [address] MCHC (RBC) [Mass/Vol] 33.9 g/dL Normal 31.4-36.0 [facility] Comment on above: Performed By: #### 1 [id number] #### [facility] [address] [place] [address] MCV (RBC) [Entitic vol] 81.0 fL Normal 80.0-100.[address] [facility] Comment on above: Performed By: #### 1 [id number] #### [facility] [address] [place] [address] Platelet mean volume (Bld) [Entitic vol] 8.7 fL Normal 6.4-10.[address] [facility] Comment on above: Performed By: #### 1 [id number] #### [facility] [address] [place] [address] Platelets (Bld) [#/Vol] 346.0 E9/L Normal 150.0-500.[address] [facility] Comment on above: Performed By: #### 1 [id number] #### [facility] [address] [place] [address] RBC (Bld) [#/Vol] 5.2 E12/L Normal 4.3-5.[address] [facility] Comment on above: Performed By: #### 1 [id number] #### [facility] [address] [place] [address] WBC corrected for nucl RBC Auto (Bld) [#/Vol] 8.7 E9/L Normal 4.0-11.[address] [facility] Comment on above: Performed By: #### 1 [id number] #### [facility] [address] [place] [address] CHEMISTRYOrdered By: SYSTEM SYSTEM on 08-18-2023 Albumin [Mass/Vol] 4.6 g/dL Normal 3.3 - 5.0 gm/dL [facility] Albumin/Globulin [Mass ratio] 1.4 {ratio} Normal 1.1 - 2.2 [facility] ALP [Catalytic activity/Vol] 65 [iU]/d Normal 21 - 98 Int._Unit/L [facility] Rem[facility] ALT No additional P-5'-P [Catalytic activity/Vol] 21 [iU]/d Normal 6 - 46 Int._Unit/L [facility] Anion gap [Moles/Vol] 8 mmol/L Normal 6 - 16 mEq/L [facility] AST [Catalytic activity/Vol] 24 [iU]/d Normal [...] 116 mL/min/1.73 m2 Normal >=59mL/min/1. 73 m2 [facility] Chem S Comment on [...] 7.9 g/dL High 6.0 - 7.8 gm/dL [facility] Sodium [Moles/Vol] 136 mmol/L Normal 135 - 145 mmol/L [facility] Urea nitrogen [Mass/Vol] 18 mg/dL Normal 5 - 21 mg/dL [facility] Urea nitrogen/Creatinine [Mass ratio] 26 mg/mg High 10 - 20 [facility] Consent for Treatmenton 2 Consent for Treatment [id number] #1.00TIFF Normal [facility] Discharge Instructionson Discharge Instructions [id number]#1.00TIFF Normal [facility] ED Clinical Summaryon 2022 ED Clinical Summary [place] [id number] ED Clinical Summary Person [facility] Age[facility] 33 Years : 1990 Sex: Female Language: Uruguayan PCP: Inderjit Joshi MD Marital Status: Visit [...] 08/18/2023 11:46:58 08/18/2023 11:46:58 08/18/2023 11:46:58 ADDRESS: [address] [place] [id number] PHYS DOC NOTES: MEDICAL INFORMATION: Prescriptions Given: New Medications Printed Prescriptions cephalexin (cephalexin 500 mg Cap) 1 Capsules By Mouth every 12 hours for 7 Days. Refills: 0. PATIENT EDUCATION INFORMATION: Instructions: Urinary Tract Infection, Adult Follow up: With: Address: When: Inderjit Joshi [address] [facility], [address] [place] [id number] Business (1) In 3 days 08/21/2023 Comments: [...] or worsening symptoms. DIAGNOSIS: UTI symptoms Normal [facility] ED Patient Education Noteon 08-18-2023 [...] this condition includes: ? Antibiotic medicine. ? Zxci-hwb-plgatfx medicines to treat discomfort. ? Drinking enough [...] these instructions at home: Medicines ? Take rehk-lyr-pdnknku and prescription medicines only as told by [...] Document Revie (more content not included)... Normal [facility] ED Patient Summaryon 023 ED Patient Summary [address] [address] Patient Discharge Instructions Person Information Name: MEREDITH BOO Age: 33 Years Arrival Date: 08/18/2023 10:03:40 Discharge Diagnosis: UTI symptoms Primary Care Physician: Inderjit Joshi MD Provider Information Primary Provider: Advanced Economics Professor:Ryan Dorsey PA-C The exam and treatment you received in the Emergency Department were for an urgent problem and are not intended as complete care. It is important that you follow up with a doctor, nurse practitioner, or physician?s assistant signal maintainer for ongoing care. If your symptoms become worse or you do not improve as expected and you are unable to reach your usual health care provider, you should return to the Emergency Department. We are available 24 hours a day. MEREDITH BOO has been given the following list of patient education materials, prescriptions and follow-up instructions: Follow-up Instructions: With: Address: When: Inderjit Joshi [address] [place] [address], [place] [address] Business (1) In 3 days [...] opioids can be used to help relieve wfqsvzuq-iy-hrfklr pain and are often prescribed following a [...] unused prescription (more content not included)... Normal [facility] HEMATOLOGYOrdered By: SYSTEM SYSTEM on [...] 6.2 E9/L Normal 2.0 - 7.5 E9/L [facility] HemeAutoSS HEMATOLOGYOrdered By: Shonda Bowen on 08-18-2023 Erythrocyte distribution width (RBC) [Ratio] 13.0 % Normal 10.9 - 14.2 % FT [facility] Hematocrit (Bld) [Volume fraction] 41.8 % Normal 34.0 - 46.0 % FT [facility] Hemoglobin (Bld) [Mass/Vol] 14.2 g/dL Normal 12.0 - 16.0 gm/dL FT [facility] MCH (RBC) [Entitic mass] 27.5 pg Normal 27.0 - 34.0 pg FT [facility] MCHC (RBC) [Mass/Vol] 33.9 g/dL Normal 31.4 - 36.0 gm/dL FT [facility] MCV (RBC) [Entitic vol] 81.0 fL Normal 80.0 - 100.0 fL FT [facility] Platelet mean volume (Bld) [Entitic vol] 8.7 fL Normal 6.4 - 10.8 fL [facility] HemeAutoSS Platelets (Bld) [#/Vol] 346.0 E9/L Normal 150.0 - 500.0 E9/L FT [facility] RBC (Bld) [#/Vol] 5.2 E12/L Normal 4.3 - 5.9 E12/L FT [facility] WBC corrected for nucl RBC Auto (Bld) [#/Vol] 8.7 E9/L Normal 4.0 - 11.0 E9/L [facility] HemeAutoSS Hep Func Panelon 08-18-2023 Bilirubin.indirect [Mass or moles/Vol] UTC Abnormal 0.1-0.[address] [facility] Comment on above: Result Comment: Resu lt verified by Discern Rule. Performed result UTC (Unable to Calculate) was sent as an Alpha code due the inability to calculate a valid numeric value. Performed By: #### 1 [id number] #### [facility] [address] [place] [address] Albumin [Mass/Vol] 4.6 g/dL Normal 3.3-5.[address] [facility] Comment on above: Performed By: #### 1 [id number] #### [facility] [address] [place] [address] Albumin/Globulin (S) [Mass conc ratio] 1.4 Normal 1.1-2.[address] [facility] Comment on above: Performed By: #### 1 [id number] #### [facility] [address] [place] [address] ALP [Catalytic activity/Vol] 65 Int._Unit/L Normal 21-[address] [facility] Comment on above: Performed By: #### 1 [id number] #### [facility] [address] [place] [address] ALT No additional P-5'-P [Catalytic activity/Vol] 21 Int._Unit/L Normal 6-[address] [facility] Comment on above: Performed By: #### 1 [id number] #### [facility] [address] [place] [address] AST [Catalytic activity/Vol] 24 Int._Unit/L Normal 5-[address] [facility] Comment on above: Performed By: #### 1 [id number] #### [facility] [address] [place] [address] Bilirubin [Mass/Vol] 0.2 mg/dL Normal 0.0-1.1 [facility] Comment on above: Performed By: #### 1 [id number] #### [facility] [address] [place] [address] Globulin (S) [Mass/Vol] 3.3 g/dL Normal 1.4-4.[address] [facility] Comment on above: Performed By: #### 1 [id number] #### [facility] [address] [place] [address] Protein [Mass/Vol] 7.9 g/dL High 6.0-7.[address] [facility] Comment on above: Performed By: #### 1 [id number] #### [facility] [address] [place] [address] Bilirubin.direct [Mass/Vol] mg/dL Normal 0.1-0.[address] [facility] Comment on above: Performed By: #### 1 [id number] #### [facility] [address] [place] [address] Lipase Levelon 08-18-2023 Lipase [Catalytic activity/Vol] 40 U/L Normal 13-[address] [facility] Comment on above: Performed By: #### 1 [id number] #### [facility] [address] [place] [address] UA With Cult Reflexon 2022 Bacteria LM Ql (Urine sed) TRACE Normal Trace [facility] Comment on above: Performed By: #### 1 [id number] #### [facility] [address] [place] [address] Bilirubin Ql (U) Negative Normal Negative [facility] Comment on above: Performed By: #### 1 [id number] #### [facility] [address] [place] [address] Clarity (U) CLEAR Normal Clear [facility] Comment on above: Performed By: #### 1 [id number] #### [facility] [address] [place] [address] Color (U) YELLOW Normal Yellow [facility] Comment on above: Performed By: #### 1 [id number] #### [facility] [address] [place] [address] Epithelial cells.squamous LM.HPF (Urine sed) [#/Area] 5-8 Normal 0-2 [facility] Comment on above: Performed By: #### 1 [id number] #### [facility] [address] [place] [address] Glucose Test strip (U) [Mass/Vol] Negative Normal Negative [facility] Comment on above: Performed By: #### 1 [id number] #### [facility] [address] [place] [address] Hemoglobin Ql (U) Negative Normal Negative [facility] Comment on above: Performed By: #### 1 [id number] #### [facility] [address] [place] [address] Ketones (U) [Mass/Vol] Negative Normal Negative [facility] Comment on above: Performed By: #### 1 [id number] #### [facility] [address] [place] [address] [place].plasma/Lithiu m.RBC (Bld) [Mass ratio] 0-3 Normal 0-[address] [facility] Comment on above: Performed By: #### 1 [id number] #### [facility] [address] [place] [address] Mucus Ql (Urine sed) 2+ Normal Fish [facility] Comment on above: Performed By: #### 1 [id number] #### [facility] [address] [place] [address] Nitrite Ql (U) Negative Normal Negative [facility] Comment on above: Performed By: #### 1 [id number] #### [facility] [address] [place] [address] pH (U) 5.5 [pH] Invalid Interpretation Code 5.0-9.[address] [facility] Comment on above: Performed By: #### 1 [id number] #### [facility] [address] [place] [address] Protein (U) [Mass/Vol] Negative Normal Negative [facility] Comment on above: Performed By: #### 1 [id number] #### [facility] [address] [place] [address] Specific gravity (U) [Rel density] 1.025 Invalid Interpretation Code 1.005-1.[address] [facility] Comment on above: Performed By: #### 1 [id number] #### [facility] [address] [place] [address] Type of Urine collection method Clean Catch Normal [facility] Comment on above: Performed By: #### 1 [id number] #### [facility] [address] [place] [address] Urobilinogen Qn (U) 0.2 {Carl'U}/dL Normal 0.0-1.[address] [facility] Comment on above: Performed By: #### 1 [id number] #### [facility] [address] [place] [address] WBC Auto Ql (U) Negative Normal Negative [facility] Comment on above: Performed By: #### 1 [id number] #### [facility] [address] [place] [address] WBC LM.HPF (Urine sed) [#/Area] 0-5 Normal 0-[address] [facility] Comment on above: Performed By: #### 1 [id number] #### [facility] [address] [place] [address] URINALYSISOrdered By: Adrian Lagos on 08-18-2023 Bacteria LM Ql (Urine sed) Trace /HPF Normal Trace/HPF [facility] UA Auto SS Bilirubin Ql (U) Negative [...] AM) Normal Negative [facility] UA Auto SS [place].plasma/Lithiu m.RBC (Bld) [Mass ratio] 0-3 /HPF Normal [...] [Mass/Vol] Negative (08/18/23 10:48 AM) Normal Negative [facility] UA Auto SS Specific gravity (U) [Rel density] 1.025 *NA* (08/18/23 10:48 AM) Invalid Interpretation Code 1.005 - 1.030 [facility] UA Auto SS UA Spec Desc Clean Catch (08/18/23 10:48 AM) Normal [facility] UA Auto SS Urobilinogen Qn (U) [id number] {Carl'U}/dL Normal 0.0 - 1.0 EU/dL [facility] UA Auto SS WBC Auto Ql (U) Negative (08/18/23 10:48 AM) Normal Negative [facility] UA Auto SS WBC LM.HPF (Urine sed) [#/Area] 0-5 /HPF Normal 0-5/HPF [facility] UA Auto SS eGFRon 08-18-2023 GFR/1.73 sq M.predicted among non-blacks MDRD (S/P/Bld) [Vol rate/Area] 116 mL/min/1.73 m2 Normal >=[address] [facility] Comment on above: Order Comment: Order added by Discern Expert. Result Comment: [place] rosalinda kidney disease could be indicated at eGFR's of less than 60 mL/min/1.73m2. Kidney failure is indicated at less than 15 mL/min/1.73m2. Performed By: #### 1 [id number] #### [facility] [address] [place] [address] Vaginitis/Vaginosis, DNA Pro beon 08-16-2023 Amy sp rRNA Probe Ql (Vag fld) Negative Invalid Interpretation Code Negative [facility] Comment on above: Performed By: #### [id number] ####[facility] [address] [place] [address] G. vaginalis rRNA Probe Ql (Genital specimen) Negative Invalid Interpretation Code Negative [facility] Comment on above: Performed By: #### 3 [id number] ####[facility] [address] [place] [address] T. vaginalis rRNA Probe Ql (Genital specimen) Negative Invalid Interpretation Code Negative [facility] Comment on above: Result Comment: Perf ormed at: [facility] [address] [place], [place] [id number] PhD José Miguel Naranjo Performed By: #### 3 [id number] ####[facility] [address] [place] [address] Physician Orderon 08-14-2023 Physician Order [id number]# 1.00TIFF Normal [facility] Covid-19 PCR (CVDTB)on 09-20 SARS-CoV-2 (COVID-19) RNA CLAUDIA+probe Ql (Unsp spec) Not detected Normal NOT DETECTED [facility] Comment on above: Result Comment: This test is not yet approved or cleared by the [place] FDA. When there are no FDA-approved or cleared tests available, and other criteria are met, FDA can make tests available under an emergency access mechanism called an Emergency Use Authorization (EUA). The EUA for this test is supported by the Staff Command And Control Officer of Health and Human Service's (HHS's) declaration [...] consistent with SARS-CoV-2. Performed By: #### C VDTBH #### [facility] [address] [place] [address] Dr. Salma Ro INFLUENZA A AND B AGon 10-03 INFLUBNEG SEE BELOW Normal [facility] Comment on above: Result Comment: Nega tive for Flu B protein antigen. Infection due to Flu B cannot be ruled out. Flu B antigen in the sample may be below the detection limit of the test. Performed By: #### I NFLUAB #### [facility] [address] [address] [address] Salma Ro INFLUENZA A AG Positive Abnormal NEGATIVE SEE COMMENT [facility] Comment on above: Performed By: #### I NFLUAB #### [facility] [address] [place] [address] Dr. Salma Ro INFLUENZA B AG Negative Normal NEGATIVE SEE COMMENT [facility] Comment on above: Performed By: #### I NFLUAB #### [facility] [address] [place] [address] Dr. Salma Ro INFLUPOSH SEE BELOW Normal [facility] Comment on above: Result Comment: NOTE : Live attenuated influenzae vaccine viruses can cause a positive result for a rapid influenza diagnostic test if administered up to 7 days prior to rapid testing. Performed By: #### I NFLUAB #### [facility] [address] [place] [address] Dr. Salma Ro INTERNAL CONTROLS Within Normal Limits Normal Wi thin Normal Limits [facility] Comment on above: Performed By: #### I NFLUAB #### [facility] [address] [place] [address] Dr. Salma Ro INSULINon 01-11-2022 Insulin 27.8 uIU/mL Critically high 2.6-24.9 [facility] Comment on above: Performed By: #### I NSULIN #### [facility] [address] [place] [address] Dr. Salma Ro CBC AUTO DIFFon 01-10-2022 BASO # 0.0 103/ul Normal 0.0-0.1 [facility] Comment on above: Performed By: #### I NSULIN #### [facility] [address] [place] [address] Dr. Salma Ro Basophils/100 WBC (Bld) 0.4 % Normal 0.2-2.0 [facility] Comment on above: Performed By: #### I NSULIN #### [facility] [address] [place] [address] Dr. Salma Ro EO # 0.2 103/ul Normal 0.0-0.7 [facility] Comment on above: Performed By: #### I NSULIN #### [facility] [address] [place] [address] Dr. Salma Ro Eosinophils/100 WBC (Bld) 1.8 % Normal 0.9-7.0 [facility] Comment on above: Performed By: #### I NSULIN #### [facility] [address] [place] [address] Dr. Salma Ro Erythrocyte distribution width (RBC) [Ratio] 12.9 % Normal 11.0-15.0 [facility] Comment on above: Performed By: #### I NSULIN #### [facility] [address] [place] [address] Dr. Salma Ro Hematocrit (Bld) [Volume fraction] 38.0 % Normal 36.0-48.0 [facility] Comment on above: Performed By: #### I NSULIN #### [facility] [address] [place] [address] Dr. Salma Ro Hemoglobin (Bld) [Mass/Vol] 12.6 g/dL Normal 12.0-16.0 [facility] Comment on above: Performed By: #### I NSULIN #### [facility] [address] [place] [address] Dr. Salma Ro IG # 0.03 10e3/ul Normal 0.00-0.03 [facility] Comment on above: Performed By: #### I NSULIN #### [facility] [address] [place] [address] Dr. Salma Ro IG % 0.4 % Normal 0.0-0.5 [facility] Comment on above: Performed By: #### I NSULIN #### [facility] [address] [place] [address] Dr. Salma Ro LYMPH # 2.1 103/ul Normal 1.2-3.8 [facility] Comment on above: Performed By: #### I NSULIN #### [facility] [address] [place] [address] Dr. Salma Ro Lymphocytes/100 WBC (Bld) 24.6 % Normal 20.5-60.0 [facility] Comment on above: Performed By: #### I NSULIN #### [facility] [address] [place] [address] Dr. Salma Ro MANUAL DIFF REQ NO Normal [facility] Comment on above: Performed By: #### I NSULIN #### [facility] [address] [place] [address] Dr. Salma Ro MCH (RBC) [Entitic mass] 27.1 pg Normal 26.7-34.0 [facility] Comment on above: Performed By: #### I NSULIN #### [facility] [address] [place] [address] Dr. Salma Ro MCHC (RBC) [Mass/Vol] 33.2 g/dL Normal 29.9-35.2 [facility] Comment on above: Performed By: #### I NSULIN #### [facility] [address] [place] [address] Dr. Salma Ro MCV (RBC) [Entitic vol] 81.7 fL Normal 81.0-99.0 [facility] Comment on above: Performed By: #### I NSULIN #### [facility] [address] [place] [address] Dr. Salma Ro MONO # 0.5 103/ul Normal 0.3-0.8 [facility] Comment on above: Performed By: #### I NSULIN #### [facility] [address] [place] [address] Dr. Salma Ro Monocytes/100 WBC (Bld) 6.3 % Normal 1.7-12.0 [facility] Comment on above: Performed By: #### I NSULIN #### [facility] [address] [place] [address] Dr. Salma Ro NEUT # 5.6 103/ul Normal 1.4-6.5 [facility] Comment on above: Performed By: #### I NSULIN #### [facility] [address] [place] [address] Dr. Salma Ro Neutrophils/100 WBC (Bld) 66.5 % Normal 43.0-75.0 [facility] Comment on above: Performed By: #### I NSULIN #### [facility] [address] [address] [address] Salma Ro Platelet mean volume (Bld) [Entitic vol] 10.4 fL Normal 9.5-13.5 [facility] Comment on above: Performed By: #### I NSULIN #### [facility] [address] [address] [address] Salma Ro PLT 395 103/ul Normal 150-450 [facility] Comment on above: Performed By: #### I NSULIN #### [facility] [address] [address] [address] Salma Ro RBC 4.65 106/ul Normal 4.20-5.40 [facility] Comment on above: Performed By: #### I NSULIN #### [facility] [address] [place] [address] Dr. Salma Ro WBC 8.4 103/ul Normal 4.0-11.0 [facility] Comment on above: Performed By: #### I NSULIN #### [facility] [address] [address] [address] Salma Ro FREE THYROXINE INDEX T7on FTI 2.79 Normal [facility] Comment on above: Performed By: #### L IPID, T7, TSH, CMP #### [facility] [address] [place] [address] Dr. Salma Ro T3U 34.0 % Normal 23.5-40.5 [facility] Comment on above: Performed By: #### L IPID, T7, TSH, CMP #### [facility] [address] [address] [address] Salma Ro T4 [Mass/Vol] 8.20 ug/dL Normal 5.53-11.00 [facility] Comment on above: Performed By: #### L IPID, T7, TSH, CMP #### [facility] [address] [place] [address] Dr. Salma Ro GLYCOHEMOGLOBIN A1Con 2021 ADA RECOMMENDATION ADA THERAPEUTIC TARGET 6.0 - 7.0 ACTION SUGGESTED > 7.0 Normal [facility] Comment on above: Performed By: #### A 1C #### [facility] [address] [address] [address] Salma Ro Glucose [Mass/Vol] 114 mg/dL Normal [facility] Comment on above: Performed By: #### A 1C #### [facility] [address] [address] [address] Salma Ro HbA1c (Bld) [Mass fraction] 5.6 % Normal <=6.0 [facility] Comment on above: Performed By: #### A 1C #### [facility] [address] [address] [address] Salma Ro IRONon 01-10-2022 Iron [Mass/Vol] 60.0 ug/dL Normal 37.0-170.0 [facility] Comment on above: Performed By: #### I KRISTA VITAD #### [facility] [address] [address] [address] Salma Ro LIPID PROFILEon 01-10-2022 CHOL-HDL RATIO NORM SEE BELOW Normal [facility] Comment on above: Result Comment: 3.3 - 4.4 LOW RISK 4.4 - 7.1 AVERAGE RISK 7.1 - 11.0 MODERATE RISK >11.0 HIGH RISK Performed By: #### L IPID, T7, TSH, CMP #### [facility] [address] [address] [address] Salma Ro Cholesterol [Mass/Vol] 171 mg/dL Normal <=200 [facility] Comment on above: Performed By: #### L IPID, T7, TSH, CMP #### [facility] [address] [address] [address] Salma Ro Cholesterol in HDL [Mass/Vol] 36 mg/dL Critically low 40-60 [facility] Comment on above: Performed By: #### L IPID, T7, TSH, CMP #### [facility] [address] [address] [address] Salma Ro Cholesterol in LDL [Mass/Vol] 98.4 mg/dL Normal [facility] Comment on above: Performed By: #### L IPID, T7, TSH, CMP #### [facility] [address] [address] [address] Salma Ro Cholesterol.total/Cho lesterol in HDL [Mass ratio] 4.8 {ratio} Normal [facility] Comment on above: Performed By: #### L IPID, T7, TSH, CMP #### [facility] [address] [address] [address] Salma Ro HDL NORMAL > or = 60 mg/dl - LOW CARDIOVASCULAR RISK <40 mg/dl - HIGH CARDIOVASCULAR RISK Normal [facility] Comment on above: Performed By: #### L IPID, T7, TSH, CMP #### [facility] [address] [address] [address] Salma Ro LDL CALC NORMAL SEE BELOW Normal [facility] Comment on above: Result Comment: <100 mg/dl OPTIMAL 100 - 129 mg/dl NEAR OR ABOVE OPTIMAL 130 - 159 mg/dl BORDERLINE HIGH 160 - 189 mg/dl HIGH >190 mg/dl VERY HIGH Performed By: #### L IPID, T7, TSH, CMP #### [facility] [address] [address] [address] Salma Ro Triglyceride [Mass/Vol] 183 mg/dL Critically high <=150 [facility] Comment on above: Performed By: #### L IPID, T7, TSH, CMP #### [facility] [address] [address] [address] Salma Ro VLDL CALC 36.6 mg/dL Normal [facility] Comment on above: Performed By: #### L IPID, T7, TSH, CMP #### [facility] [address] [address] [address] Salma Ro PROF 14(COMP METB)on 022 Albumin [Mass/Vol] 4.0 g/dL Normal 3.4-5.0 [facility] Comment on above: Performed By: #### L IPID, T7, TSH, CMP #### [facility] [address] [place] [address] Dr. Salma Ro Albumin/Globulin [Mass ratio] 1.1 {ratio} Normal [facility] Comment on above: Performed By: #### L IPID, T7, TSH, CMP #### [facility] [address] [address] [address] Salma Ro ALP [Catalytic activity/Vol] 100 U/L Normal 46-116 [facility] Comment on above: Performed By: #### L IPID, T7, TSH, CMP #### [facility] [address] [place] [address] Dr. Salma Ro ALT [Catalytic activity/Vol] 40 U/L Normal 14-59 [facility] Comment on above: Performed By: #### L IPID, T7, TSH, CMP #### [facility] [address] [place] [address] Dr. Salma Ro Anion gap [Moles/Vol] 14.4 mmol/L Normal [facility] Comment on above: Performed By: #### L IPID, T7, TSH, CMP #### [facility] [address] [place] [address] Dr. Salma Ro AST [Catalytic activity/Vol] 17 U/L Normal 15-37 [facility] Comment on above: Performed By: #### L IPID, T7, TSH, CMP #### [facility] [address] [place] [address] Dr. Salma Ro Bilirubin [Mass/Vol] 0.2 mg/dL Normal 0.2-1.3 [facility] Comment on above: Performed By: #### L IPID, T7, TSH, CMP #### [facility] [address] [place] [address] Dr. Salma Ro Calcium [Mass/Vol] 8.6 mg/dL Normal 8.5-10.1 [facility] Comment on above: Performed By: #### L IPID, T7, TSH, CMP #### [facility] [address] [place] [address] Dr. Salma Ro Chloride [Moles/Vol] 105 mmol/L Normal 98-107 [facility] Comment on above: Performed By: #### L IPID, T7, TSH, CMP #### [facility] [address] [place] [address] Dr. Salma Ro CO2 [Moles/Vol] 26.1 mmol/L Normal 22.0-30.0 [facility] Comment on above: Performed By: #### L IPID, T7, TSH, CMP #### [facility] [address] [address] [address] Salma Ro Creatinine [Mass/Vol] 0.72 mg/dL Normal 0.52-1.04 [facility] Comment on above: Performed By: #### L IPID, T7, TSH, CMP #### [facility] [address] [address] [address] Salma Ro EGFR-AF CHINESE >60 Normal >=60 [facility] Comment on above: Performed By: #### L IPID, T7, TSH, CMP #### [facility] [address] [address] [address] Salma Ro EGFR-NON AF CHINESE >60 Normal >=60 [facility] Comment on above: Performed By: #### L IPID, T7, TSH, CMP #### [facility] [address] [address] [address] Salma Ro Globulin (S) [Mass/Vol] 3.7 g/dL Normal [facility] Comment on above: Performed By: #### L IPID, T7, TSH, CMP #### [facility] [address] [address] [address] Salma Ro Glucose [Mass/Vol] 105 mg/dL Normal 74-106 [facility] Comment on above: Performed By: #### L IPID, T7, TSH, CMP #### [facility] [address] [address] [address] Salma Ro Potassium [Moles/Vol] 4.5 mmol/L Normal 3.4-5.0 [facility] Comment on above: Performed By: #### L IPID, T7, TSH, CMP #### [facility] [address] [address] [address] Salma Ro Protein [Mass/Vol] 7.7 g/dL Normal 6.1-8.2 [facility] Comment on above: Performed By: #### L IPID, T7, TSH, CMP #### [facility] [address] [address] [address] Salma Ro Sodium [Moles/Vol] 141 mmol/L Normal 137-145 [facility] Comment on above: Performed By: #### L IPID, T7, TSH, CMP #### [facility] [address] [address] [address] Salma Ro Urea nitrogen [Mass/Vol] 20.0 mg/dL Critically high 7.0-18.0 [facility] Comment on above: Performed By: #### L IPID, T7, TSH, CMP #### [facility] [address] [place] [address] Dr. Salma Ro Urea nitrogen/Creatinine [Mass ratio] 27.8 mg/mg Normal [facility] Comment on above: Performed By: #### L IPID, T7, TSH, CMP #### [facility] [address] [place] [address] Dr. Salma Ro TSHon 01-10-2022 TSH 3.488 uIU/mL Normal 0.470-4.680 [facility] Comment on above: Performed By: #### L IPID, T7, TSH, CMP #### [facility] [address] [place] [address] Dr. Salma Ro TSH RANGE SEE BELOW Normal [facility] Comment on above: Result Comment: <0.3 4 UIU/ml HYPERTHYROID 0.34-5.60 UIU/ml EUTHYROID >5.60 UIU/ml HYPOTHYROID Performed By: #### L IPID, T7, TSH, CMP #### [facility] [address] [place] [address] Dr. Salma Ro VITAMIN D 25 OHon 01-10-2022 VIT D 25-OH 28.2 ng/mL Normal [facility] Comment on above: Performed By: #### I KRISTA, VITAD #### [facility] [address] [place] [address] Dr. Salma Ro VIT D RANGES SEE BELOW Normal [facility] Comment on above: Result Comment: <20 ng/mL Vit D deficient 20 - <30 ng/mL Vit D insufficient 30 - 100 ng/mL Vit D sufficient >100 ng/mL Potential Toxicity Performed By: #### I KRISTA VITAD #### [facility] [address] [place] [address] Dr. Salma Ro Vital Signs Date Time Vital Sign Value Performing Clinician Facility 06-26-2024 11:12-0400 Body height 156.[address] [facility] 06-26-2024 11:12-0400 Body mass index (BMI) [Ratio] 31.5 kg/m2 [facility] 06-26-2024 11:12-0400 Body weight 76.[address] [facility] 06-26-2024 11:12-0400 Diastolic blood pressure 74 mm[Hg] [facility] 06-26-2024 11:12-0400 Heart rate 91 /min [facility] 06-26-2024 11:12-0400 Inhaled oxygen flow rate 37 L/min [facility] 06-26-2024 11:12-0400 Respiratory rate 18 /min [facility] 06-26-2024 11:12-0400 SaO2% (BldA) [Mass fraction] 100 % [facility] 06-26-2024 11:12-0400 Systolic blood pressure 111 mm[Hg] [facility] 03-27-2024 08:37-0400 Blood Pressure Location Elissa Lue [facility] 03-27-2024 08:37-0400 Body temperature 97.52 [degF] Elissa Lue [facility] 03-27-2024 08:37-0400 Diastolic blood pressure 78 mm[Hg] Elissa Lue [facility] 03-27-2024 08:37-0400 Heart rate 88 /min Elissa Lue [facility] 03-27-2024 08:37-0400 Systolic blood pressure 116 mm[Hg] Elissa Mejia [facility] 12-05-2023 09:16-0500 Body height 156.[address] [facility] 12-05-2023 09:16-0500 Body mass index (BMI) [Ratio] 31.9 kg/m2 [facility] 12-05-2023 09:16-0500 Body weight 78.[address] [facility] 12-05-2023 09:16-0500 Heart rate 88 /min [facility] 12-05-2023 09:16-0500 Respiratory rate 18 /min [facility] 12-05-2023 09:16-0500 SaO2% (BldA) [Mass fraction] 98 % [facility] 08-29-2023 11:30-0500 Body height 156.21 cm Jaco Solarsi Other [employer] Other 08-29-2023 11:30-0500 Body mass index (BMI) [Ratio] 33.64 kg/m2 Jaco Solarsi Other [employer] Other 08-29-2023 11:30-0500 Body weight 82.1 kg Jaco Solarsi Other [employer] Other 08-29-2023 11:30-0500 Diastolic blood pressure 76 mm[Hg] Jaco Solarsi Other [employer] Other 08-29-2023 11:30-0500 Respiratory rate 18 /min Jaco Solarsi Other [employer] Other 08-29-2023 11:30-0500 SaO2% (BldA) [Mass fraction] 100 % Jaco Solarsi Other [employer] Other 08-29-2023 11:30-0500 Systolic blood pressure 123 mm[Hg] Sammy Mike Other [employer] [facility] [place] Other 08-18-2023 10:11-0400 Body temperature 98.24 [degF] Nicholas Thurston [facility] 08-18-2023 10:11-0400 Diastolic blood pressure 92 mm[Hg] Nicholas Thurston [facility] 08-18-2023 10:11-0400 Heart rate 90 /min Nicholas Thurston [facility] 08-18-2023 10:11-0400 Respiratory rate 18 /min Nicholas Thurston [facility] 08-18-2023 10:11-0400 SaO2% (BldA) [Mass fraction] 95 % Nicholas [facility]ston [facility] 08-18-2023 10:11-0400 Systolic blood pressure 131 mm[Hg] Nicholas [facility]ston [facility] 07-11-2023 09:00-0400 Body height 156.21 cm Sammy Mike Other [employer] [facility] [place] Other 07-11-2023 09:00-0400 Body mass index (BMI) [Ratio] 33.9 kg/m2 Sammy Mike Other [employer] Other 07-11-2023 09:00-0400 Body weight 82.74 kg Sammy Mike Other [employer] Other 07-11-2023 09:00-0400 Diastolic blood pressure 82 mm[Hg] Sammy Mike Other [employer] Other 07-11-2023 09:00-0400 Respiratory rate 20 /min Sammy Mike Other [employer] Other 07-11-2023 09:00-0400 SaO2% (BldA) [Mass fraction] 98 % Sammy Mike Other [employer] Other 07-11-2023 09:00-0400 Systolic blood pressure 119 mm[Hg] Sammy Mike Other [employer] Other Encounters Encounter Date Encounter Type Care Provider Facility Start: 06-26-2024 End: 06-26-2024 ambulatory [facility] Work Phone: Start: 06-26-2024 End: 06-26-2024 Patient encounter procedure [facility] Work Phone: Start: 04-13-2024 End: 04-13-2024 ambulatory Elissa Mejia Facility:[facility] Start: 04-13-2024 End: 04-13-2024 Patient encounter procedure Elissa Mejia [facility] Start: 03-27-2024 End: 03-27-2024 ambulatory Elissa Mejia Facility:[facility] Start: 03-27-2024 End: 03-27-2024 Patient encounter procedure Elissa Mejia [facility] Start: 02-10-2024 End: 02-10-2024 ambulatory JODIEDerrick NELSONM Not Available Start: 12-05-2023 ambulatory Sammy Mike Facility :[facility] Start: 12-05-2023 End: 12-05-2023 ambulatory [facility] Work Phone: Start: 12-05-2023 End: 12-05-2023 Patient encounter procedure [facility] Work Phone: Start: 11-12-2023 End: 11-12-2023 ambulatory GISELA A PETITTI Not Available Start: 10-15-2023 End: 10-15-2023 ambulatory Star LEONARDO Facility:[facility] Start: 10-15-2023 End: 10-15-2023 Patient encounter procedure Star Berg JORDEN [facility] Start: 09-03-2023 End: 09-04-2023 ambulatory GISELA A PETITTI Not Available Start: 08-30-2023 End: 08-30-2023 ambulatory Christine J Sanaz Facility:[facility] Start: 08-30-2023 End: 08-30-2023 Lab Drop off Christine J Sanaz [facility] Start: 08-29-2023 Follow-up encounter Sammy Ballesteros regine [facility] Start: 08-29-2023 End: 08-30-2023 ambulatory Inderjit Whyte [facility] Other Start: 08-19-2023 ambulatory Elissa Roberto Facility:[facility] Start: 08-18-2023 End: 08-18-2023 Emergency department patient visit Nicholas Thurston [facility] Start: 08-14-2023 End: 08-14-2023 ambulatory Christine J Sanaz Facility:[facility] Start: 08-14-2023 End: 08-14-2023 Lab Drop off Christine J Sanaz [facility] Start: 07-22-2023 End: 07-22-2023 ambulatory Sammy Mike Other [place] Other Start: 07-22-2023 Telephone encounter Sammy fatima [facility] Start: 07-11-2023 End: 07-11-2023 ambulatory Sammy Mike Other [place] Other Start: 07-11-2023 Nutrition therapy Sammyjulissa Mike [facility] Start: 10-03-2022 End: 10-03-[address] INDERJIT JOSHI Facility:[facility]1 Start: 01-15-2022 Encounter for genera l adult medical examination without abnormal findings DR INDERJIT JOSHI [facility] Start: 01-10-2022 End: 01-11-[address] INDERJIT JOSHI Facility:[facility] Start: 01-10-2022 End: 01-11-2022 Encounter for general adult medical examination without abnormal findings DR INDERJIT JOSHI Facility:[facility] Immunizations Immunization Date Immunization Notes Care Provider Radha wolf 07-08-2022 SARS-CoV-2 (COVID-19 ) mRNAMUL.[id number] Star LEONARDO [facility] 02-14-2021 SARS-CoV-2 (COVID-19 ) mRNA-1273 vaccine [employer] [facility] 01-20-2021 SARS-CoV-2 (COVID-19 ) mRNA-1273 vaccine [employer] [facility] 05-02-2017 tetanus toxoid, redu maximino diphtheria toxoid, and acellular pertussis vaccine, adsorbed [employer] [facility] 12-17-2011 hepatitis B vaccine, adult dosage [employer] [facility] 06-26-2011 hepatitis B vaccine, adult dosage [employer] [facility] 05-23-2011 hepatitis B vaccine, adult dosage [employer] [facility] Payers Date Payer Category Payer Unknown [id number] 2023 Blue Cross Blue Shield [id number] 2023 Self-pay [id number] 1988 Unknown [id number] 1988 Unknown [id number] 2.16.840.1.423375.3.579.2.593 1988 Unknown [id number] 2.16.840.1.801648.3.579.2.1259 1988 Unknown [id number] 2.16.840.1.873215.3.579.2.727 1988 Unknown [id number] 2.16.840.1.727309.3.579.2.727 1988 Unknown [id number] 2.16.840.1.077670.3.579.2.727 1988 Unknown [id number] 2.16.840.1.960508.3.579.2.727 1988 Unknown [id number] 2.16.840.1.828828.3.579.2.727 1988 Unknown [id number] 2.16.840.1.177308.3.579.2.727 1988 Unknown [id number] 2.16.840.1.463199.3.579.2.727 1959 Unknown [id number] Medicaid [employer] [id number] 501 [id number] Unknown [place] BC/BS [id number] Unknown [id number] 2.16.840.1.329378.3.579.2.531 Unknown [id number] 2.16.840.1.403052.3.579.2.531 Social History Date Type Detail Facility Unknown if ever smoked [employer] Other Sex Assigned At [facility] Tobacco smoking status No Smoking Status Entered [facility] Start: 1990 Sex Assigned At Female [facility] Start: 03-27-2024 Tobacco smoking status Never smoked tobacco (finding) [facility] Tobacco smoking status Never [facility] NEGATED: Highlighted row [facility] Functional Status Date Assessment Result Facility 04-13-2024 Functional Status N/A [facility] 03-27-2024 Functional Status N/A [facility] 08-18-2023 Functional Status N/A [facility] Clinical Notes 07-11-2023 to 04-13-2024 Note Date & Type Note Facility 04-13-2024 Evaluation + Plan note Extrac mary from: Title:[facility] HOPD Note Author:Roberto JOSHI, Elissa Whyte . Date:04/13/24 Impression and Plan Assessment and Plan: Diagnosis: Atrophic vaginitis (IGK39-IS N95.2, Working, Medical), Intrinsic sphincter deficiency (ISD) (POP38-VK N36.42, Discharge, Medical), Stress incontinence, female (HYN08-NU N39.3, Discharge, Medical). 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 [facility]06-24-2024 Hospital Discharge instructions Patient Education 04/13/2024 [...] Address:Unknown When: Unknown Comments:Office to schedule [employer] [facility]06-24-2024 Note [id number] [facility] 04-13-2024 NoteCystoscopy ? Voiding after the procedure: [...] if you have a fever over [address] 03-27-2024 Hospital Discharge instructions Patient [...] including vitamins, herbs, eye drops, creams, and ullb-lhy-wcnttkk medicines. Any problems you or family members [...] provider tells you to take them. Taking ekeo-qqs-fznkcxn medicines, vitamins, herbs, and supplements. General instructions [...] provider. Document Revised: 05/12/2021 Document Reviewed: 05/12/2021 [employer] Patient Education 2022 [employer]. 03/27/2024 08:34:27 Kegel Exercises Kegel Exercises Kegel [...] provider. Document Revised: 02/15/2022 Document Reviewed: 02/15/2022 [employer] Patient Education 2022 [employer]. Follow Up Care 12/25/2023 16:33:02 With:Roberto JOSHI, BULMARO Pérez, URO Address: When: Unknown [facility] 11-09-2023 Evaluation note* Encounter Date Diagnosis Assessment [...] voice recognition software. Please excuse errors in flash developer. Aug, Dietary surveillance and counseling (ICD-10 [...] representing insulin resistance. Explained pathophysiology to patient. [employer] Other 10-30-2023 Hospital Discharge instructions Follow Up Care 08/19/2023 10:13:34 With:JORDEN JOSHI, BULMARO Oquendo Address: [address] [place] [address] [place] [id number]- When: Unknown [facility] Dolores [id number] Evaluation + Plan note Diagnostic Tests Pending * Chlamydia/Gonococcus, CLAUDIA 08/18/23 * Urine Culture 08/18/23 [facility]10-29-2023 Hospital Discharge instructions Patient Education 08/18/2023 [...] Treatment for this condition includes: Antibiotic medicine. Rofs-gjw-cjwefwf medicines to treat discomfort. Drinking enough water [...] Follow these instructions at home: Medicines Take oirv-yug-apyaudi and prescription medicines only as told by [...] provider. Document Revised: 05/19/2021 Document Reviewed: 05/19/2021 [employer] Patient Education 2022 [employer]. Follow Up Care 08/18/2023 10:05:00 With:Inderjit Adi Address: [address] [place], [place] [id number] Business (1) When:08/21/2023 11:41:26 Comments:Call the office [...] you develop any new or worsening symptoms. [facility]10-25-2023 Evaluation + Plan note Diagnostic Tests Pending * Vaginitis/Vaginosis, DNA Probe 08/14/23 [facility]09-21-2023 Evaluation note* Encounter Date Diagnosis Assessment [...] voice recognition software. Please excuse errors in flash developer. Jun, Dietary surveillance and counseling (ICD-10 [...] with the patient, and documenting clinical information. [employer] Other Chief complaint+Reason for visit Narrative* Reason for Visit Dietary surveillance and counseling Exercise counseling Obesity, Class I, BMI 30-34.9 Prediabetes [facility] Work Phone: Evaluation + Plan note Future Appointments Appointment Date:10/15/2023 02:00:00 PM Scheduled Provider:Star LEONARDO MD Location:[facility] Appointment Type:URO New Patient Diagnostic Tests Pending * PAP [id number] [facility]23 [facility] Appointments Appointment Date:04/09/2024 11:30:00 AM Scheduled Provider: Location:[facility] Appointment Type:Urology CALL PAT FT Appointment Date:04/13/2024 09:15:00 AM Scheduled Provider: Location:[facility] Appointment Type:Urology FT [facility] [place] Other Evaluation note* Diagnosis Onset Date Resolution Status Dietary surveillance and counseling acute Exercise counseling acute Obesity, Class I, BMI 30-34.9 acute Prediabetes acute [facility] Work Phone: Evaluation note* Diagnosis Onset Date Resolution Status Abnormal weight gain acute BMI 31.0-31.9,adult acute Dietary surveillance and counseling acute Dyslipidemia acute Exercise counseling acute Hypertriglyceridemia acute Obesity, Class I, BMI 30-34.9 acute Prediabetes acute [facility] Work Phone: History general Narrative - Reported* Type Description Date Medical History Cystic acne Medical History Hypertriglyceridmia Medical History Rhinitis Surgical History [place] teeth extraction Hospitalization History See above [employer] Other Hospital course Narrative No data available for this section [facility] No data available for this section [facility] No data available for this section [facility] Summary Purpose Family History Relationship Condition Age at Onset Recorded Date/T katya father High blood cholesterol Unknown Hypertension Unknown grandparent Unknown Not Specified Hypertension Unknown High blood cholesterol Unknown Relationship Condition Age at Onset Recorded Date/T katya father High blood cholesterol Unknown Hypertension Unknown grandparent Unknown mother Hypertension Unknown High blood cholesterol Unknown Advance Directives Advance Directive Response Recorded Date/ Time Advance Directives No June 10:46am Advance Directive Response Recorded Date/ Time Advance Directives No June 11:46am Chief Complaint and Reason for Visit Chief Complaint Transferring from Dr Peg Mike Reason for Visit Abnormal weight gain BMI 31.0-31.9,adult Dietary surveillance and counseling Dyslipidemia Exercise counseling Hypertriglyceridemia Obesity, Class I, BMI 30-34.9 Prediabetes Additional Source Comments INFORMATION SOURCE (unrecogn ized section and content) DATE CREATED AUTHOR 10/12/2022 [facility] DATE CREATED AUTHOR AUTHOR'S ORGANIZ ATION 02/11/2024 [facility] EPIC DATE CREATED AUTHOR AUTHOR'S ORGANIZ ATION 02/27/2024 [facility] DATE CREATED AUTHOR AUTHOR'S ORGANIZ ATION [facility]20[facility] REASON FOR VISIT (unrecogniz ed section and content) Initial [facility] VoicemailNo In formation Patient Care team informatio n (unrecognized section and content) Team Status: Active Member Role Status Sonia Joshi MD Primary Care Provider Active Team Status: Inactive Member Role Status Dates Inderijt Joshi MD Primary Care Provider Active Start: December 05, 2023 End: December 05, 2023 Sammy Mike DO Attending Provider Active St art: December 05, 2023 End: December 05, 2023 Personnel Name: Inderjit Joshi MD Address: Address: [address] [place] [address] Goals (unrecognized section and content) Goals may [...] BE BASED ON THE PRIMARY CLINICAL RECORDS. [facility]. provides no warranty or guarantee of the accuracy or completeness of information in this document.
[2024-07-28 13:16] LABS: Basophils Absolute Auto 0.1 10^3/uL (0.0-0.1); Basophils Percent Auto 0.6 % (0.2-2.0); Eosinophils Absolute Auto 0.1 10^3/uL (0.0-0.7); Eosinophils Percent Auto 1.5 % (0.9-7.0); Hematocrit 37.9 % (36.0-48.0); Hemoglobin 12.5 g/dL (12.0-16.0); Immature Granulocytes Abs Auto 0.03 10^3/uL (0.00-0.03); Immature Granulocytes Pct Auto 0.4 % (0.0-0.5); Lymphocytes Absolute Auto 2.2 10^3/uL (1.2-3.8); Lymphocytes Percent Auto 26.6 % (20.5-60.0); Mean Corpuscular Hemoglobin 26.5 pg (26.7-34.0); Mean Corpuscular Volume 80.3 fL (81.0-99.0); Mean Platelet Volume 10.4 fL (9.5-13.5); Monocytes Absolute Auto 0.5 10^3/uL (0.3-0.8); Monocytes Percent Auto 6.5 % (1.7-12.0); Neutrophils Absolute Auto 5.3 10^3/uL (1.4-6.5); Neutrophils Percent Auto 64.4 % (43.0-75.0); Platelet Count 363 10^3/uL (150-450); Red Blood Count 4.72 10^6/uL (4.20-5.40); Red Cell Distribution Width 12.5 % (11.0-15.0); White Blood Count 8.2 10^3/uL (4.0-11.0)
[2024-07-28 13:26] LABS: Ammonia 16 umol/L (11-32)
[2024-07-28 15:22] LABS: Alanine Aminotransferase 19 U/L (14-59); Albumin Globulin Ratio 1.2; Alkaline Phosphatase 83 U/L (46-116); Aspartate Amino Transferase 14 U/L (15-37); BUN Creatinine Ratio 18.3; Bilirubin Total 0.3 mg/dL (0.2-1.0); Calcium 9.2 mg/dL (8.5-10.1); Carbon Dioxide 27.4 mmol/L (21.0-32.0); Chloride 101 mmol/L (98-107); Estimated GFR (African America >60 (>=60 mL/min/1.73m^2); Estimated GFR (Non-African Ame >60 (>=60 mL/min/1.73m^2); Free T3 2.55 pg/mL (2.18-3.98); Globulin 3.4 g/dL; Glucose 81 mg/dL (74-106); Potassium 3.4 mmol/L (3.5-5.1); Sodium 137 mmol/L (136-145); Thyroid Stimulating Hormone 2.825 uIU/mL (0.358-3.740); Total Protein 7.4 g/dL (6.4-8.2)
[2024-07-29 04:08] LABS: Vitamin B12 586 pg/mL (232-1245)
== END 2024-07-28 13:01 | disposition home or self-care (01) ==
LOC: LAB 13:00
PROVIDERS: PCP Family Medicine; Visit Provider Family Medicine
DX: D64.9 Anemia, unspecified (principal); R53.83 Other fatigue
CPT/HCPCS: 36415; 80053; 82140; 82607; 82746; 84436; 84443; 84481; 85025